=== PATIENT | female | born 1925 | race Caucasian/White ===

== ENCOUNTER 2016-05-24 13:23 | Emergency (ER) | payer MEDICARE ==
--- NOTE | 2016-05-24 14:16 | RAD ---
Indication: Increased weakness. Cardiovascular disease. Comparison: None. Technique: Upright AP 1400 hours Report: Median sternotomy wires, RIGHT atrial and RIGHT ventricular level asymmetrically leads, cardiomegaly. Small bilateral pleural effusions including fluid in the RIGHT minor fissure. Prominent interstitial markings with thickened peripheral intralobular septa. Prominent central pulmonary vasculature with mild perihilar opacities. Negative for pneumothorax. Surgical clips at the level of the jugular notch. Healed fracture at the proximal RIGHT humerus. IMPRESSION: Cardiomegaly with mild alveolar and interstitial pulmonary edema with associated small effusions.
[2016-05-24 14:17] LABS: Hematocrit 37 % (35-47); Hemoglobin 12.2 g/dl (12.0-16.0); Mean Corpuscular HGB Conc 33 g/dl (31-36); Mean Corpuscular Hemoglobin 31 pg (27-31); Mean Corpuscular Volume 95 fL (80-97); Mean Platelet Volume 10 um3 (7.4-10.4); Red Cell Distribution Width 14 % (10.5-15); White Blood Count 5.8 10^3/ul (3.5-10.8)
[2016-05-24 14:34] LABS: Albumin 3.1 g/dL (3.2-5.2); BUN/Creatinine Ratio 15.2 (8-20); C Reactive Protein 20.79 mg/L (< 5.00); Calcium 8.9 mg/dL (8.6-10.3); EGFR African American 63.6 (>60); EGFR Non-African American 49.5 (>60); Globulin 3.7 g/dL (2-4); Magnesium 1.9 mg/dL (1.9-2.7); Potassium 4.5 mmol/L (3.5-5.0); Total Bilirubin 1.6 mg/dL (0.2-1.0); Total Protein 6.8 g/dL (6.4-8.9); Troponin I 0.01 ng/mL (<0.04)
[2016-05-24 14:52] LABS: TSH (Thyroid Stimulating Horm) 3.33 mcIU/mL (0.34-5.60)
[2016-05-24 18:08] LABS: Urine Bacteria Absent (Absent); Urine Bilirubin Negative (Negative); Urine Glucose Negative (Negative); Urine Nitrite Negative (Negative)
[2016-05-24] MEDS ORDERED: Ciprofloxacin TAB* 750 MG PO ONE ×2 (18:27→18:29)
[2016-05-24 18:30] VITALS: BP 120/55
--- NOTE | 2016-05-24 21:56 | ED ---
Delia Leone Erika, scribed for Angel Ochoa MD on 05/24/16 at 1352 . Complex/Multi-Sys Presentation - HPI Summary HPI Summary: Patient is an 89-year-old female presenting to the ED with a CC of lethargy. Patient's daughter received report from [place], where patient lives in assisted living. They reported that patient was at baseline yesterday. Today, patient was confused and weak when they tried to wake her up for breakfast, and did not get up. When she also did not get up around 1 pm, she was brought to the ED. Daughter reports that patient was seen at [place] on 05/20/2016 for a healing bedsore. Daughter also reports that patient has fallen asleep while trying to talk to her more often recently, but this is not new today. Patient reports lower back pain when sitting up, which is baseline per daughter. - History Of Current Complaint Chief Complaint: EDWeakness Time Seen by Provider: 05/24/16 13:30 Hx Obtained From: Patient, Family/[employer] - Daughter Onset/Duration: Lasting Hours, Still Present Timing: Constant Severity Currently: Moderate Alleviating Factor(s): Nothing Associated Signs And Symptoms: Positive: Confusion, Weakness - Allergies/Home Medications Allergies/Adverse Reactions: Allergies Allergy/AdvReac Type Severity Reaction Status Date / Time Penicillins Allergy Intermediate See Comment Verified 05/24/16 13:41 Latex Allergy Unknown Verified 05/24/16 13:41 Reaction Details Home Medications: Home Medications Calcium Carbonate [Calcium 600] 600 mg PO BID 05/24/16 [History Confirmed ] Cholecalciferol [Vitamin D] 2,000 unit PO DAILY 05/24/16 [History Confirmed 12/30] Cyanocobalamin TAB* [Vitamin B12 TAB*] 500 mcg PO DAILY 05/24/16 [History Confirmed 05/24/16] Lactobacillus [Floranex] 1 gra PO DAILY 05/24/16 [History Confirmed 05/24/16] Lovastatin [Altoprev] 20 mg PO DAILY 05/24/16 [History Confirmed 05/24/16] Quetiapine Fumarate [Seroquel] 500 mg PO BEDTIME 05/24/16 [History Confirmed 12/30] Tramadol HCl [Ultram] 50 mg PO TID 05/24/16 [History Confirmed 05/24/16] traZODone TAB* [Desyrel TAB*] 50 mg PO BEDTIME 05/24/16 [History Confirmed 05/24] PMH/Surg Hx/FS Hx/Imm Hx Endocrine/Hematology History: Reports: Hx Thyroid Disease Cardiovascular History: Reports: Hx Pacemaker/ICD, 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 - Surgical History Surgery Procedure, Year, and Place: pacemaker placed 2007 or later, aortic valve replacement Infectious Disease History: Denies: Traveled Outside the [place] in Last 30 Days - Family History Known Family History: Positive: Other - thyroid disease - Social History Occupation: Retired Lives: Assisted Living Alcohol Use: None Hx Substance Use: No Substance Use Type: Reports: None Hx Tobacco Use: No Smoking Status (MU): Never Smoked Tobacco Review of Systems Positive: Fatigue. Negative: Fever Positive: Myalgia - back pain Skin: Other - healing bedsore to right buttocks Neurological: Other - confusion Positive: Weakness - generalized All Other Systems Reviewed And Are Negative: Yes Physical Exam Triage Information Reviewed: Yes Vital Signs On Initial Exam: Temp Pulse Resp BP Pulse Ox 98 F 63 16 116/49 100 05/24/16 13:30 05/24/16 13:30 05/24/16 13:30 05/24/16 13:30 05/24/16 13:30 Vital Signs Reviewed: Yes Appearance: Positive: Well-Appearing, No Pain Distress, Obese Skin: Positive: Warm, Skin Color Reflects Adequate Perfusion, Dry, Other - There are hyperemic areas on the right buttock with skin intact Head/Face: Positive: Normal Head/Face Inspection Eyes: Positive: Normal ENT: Positive: Other - Dry mucus membranes Neck: Positive: Supple, Nontender Respiratory/Lung Sounds: Positive: Breath Sounds Present, Other - Mild crackles about [address] the lungs bilaterally Cardiovascular: Positive: RRR Abdomen Description: Positive: Nontender, Soft Bowel Sounds: Positive: Present Musculoskeletal: Positive: Other - Slight pitting edema bilaterally Neurological: Positive: Normal Psychiatric: Positive: Affect/Mood Appropriate Diagnostics - Vital Signs Vital Signs Temp Pulse Resp BP Pulse Ox 05/24/16 18:30 76 21 120/55 77 05/24/16 18:28 98.0 F 62 17 120/55 05/24/16 18:00 60 22 117/49 100 05/24/16 17:30 60 18 106/48 91 05/24/16 17:00 79 19 96/71 79 05/24/16 16:30 54 18 105/38 88 05/24/16 16:00 62 22 97/70 99 05/24/16 15:30 63 20 97/70 99 05/24/16 15:00 60 19 115/55 99 05/24/16 14:30 60 20 106/55 98 05/24/16 14:00 63 20 104/49 100 05/24/16 13:38 61 24 99 05/24/16 13:37 115/46 05/24/16 13:30 98 F 63 16 116/49 100 - Laboratory Lab Results: Lab Results 05/24/16 05/24/16 05/24/16 Range/Units 13:46 13:46 13:46 WBC 5.8 (3.5-10.8) 10^3/ul RBC 3.90 L (4.0-5.4) 10^6/ul Hgb 12.2 (12.0-16.0) g/dl Hct 37 (35-47) % MCV 95 (80-97) fL MCH 31 (27-31) pg MCHC 33 (31-36) g/dl RDW 14 (10.5-15) % Plt Count 130 L (150-450) 10^3/ul MPV 10 (7.4-10.4) um3 Neut % (Auto) 66.7 (38-83) % Lymph % (Auto) 18.0 L (25-47) % [place] % (Auto) 10.7 H (1-9) % Eos % (Auto) 3.7 (0-6) % Baso % (Auto) 0.9 (0-2) % Absolute Neuts (auto) 3.8 (1.5-7.7) 10^3/ul Absolute Lymphs (auto) 1.0 (1.0-4.8) 10^3/ul Absolute Monos (auto) 0.6 (0-0.8) 10^3/ul Absolute Eos (auto) 0.2 (0-0.6) 10^3/ul Absolute Basos (auto) 0 (0-0.2) 10^3/ul Absolute Nucleated RBC 0.01 10^3/ul Nucleated RBC % 0.1 INR (Anticoag Therapy) 2.36 H (0.89-1.11) Sodium 139 (133-145) mmol/L Potassium 4.5 (3.5-5.0) mmol/L Chloride 97 L (101-111) mmol/L Carbon Dioxide 42 H* (22-32) mmol/L Anion Gap 0 L (2-11) mmol/L BUN 16 (6-24) mg/dL Creatinine 1.05 H (0.51-0.95) mg/dL Est GFR ( Amer) 63.6 (>60) Est GFR (Non-Af Amer) 49.5 (>60) BUN/Creatinine Ratio 15.2 (8-20) Glucose 78 (70-100) mg/dL Lactic Acid (0.5-2.0) mmol/L Calcium 8.9 (8.6-10.3) mg/dL Magnesium 1.9 (1.9-2.7) mg/dL Total Bilirubin 1.60 H (0.2-1.0) mg/dL AST 17 (13-39) U/L ALT 6 L (7-52) U/L Alkaline Phosphatase 114 H (34-104) U/L Troponin I 0.01 (<0.04) ng/mL C-Reactive Protein 20.79 H (< 5.00) mg/L B-Natriuretic Peptide ( - 100) pg/mL Total Protein 6.8 (6.4-8.9) g/dL Albumin 3.1 L (3.2-5.2) g/dL Globulin 3.7 (2-4) g/dL Albumin/Globulin Ratio 0.8 L (1-3) TSH 3.33 (0.34-5.60) mcIU/mL Urine Color Urine Appearance Urine pH (5-9) Ur Specific [place] (1.010-1.030) Urine Protein (Negative) Urine Ketones (Negative) Urine Blood (Negative) Urine Nitrate (Negative) Urine Bilirubin (Negative) Urine Urobilinogen (Negative) Ur Leukocyte Esterase (Negative) Urine WBC (Auto) (Absent) Urine RBC (Auto) (Absent) Urine Bacteria (Absent) Urine Glucose (Negative) Urine Ascorbic Acid (Negative) 05/24/16 05/24/16 05/24/16 Range/Units 13:46 13:46 17:45 WBC (3.5-10.8) 10^3/ul RBC (4.0-5.4) 10^6/ul Hgb (12.0-16.0) g/dl Hct (35-47) % MCV (80-97) fL MCH (27-31) pg MCHC (31-36) g/dl RDW (10.5-15) % Plt Count (150-450) 10^3/ul MPV (7.4-10.4) um3 Neut % (Auto) (38-83) % Lymph % (Auto) (25-47) % [place] % (Auto) (1-9) % Eos % (Auto) (0-6) % Baso % (Auto) (0-2) % Absolute Neuts (auto) (1.5-7.7) 10^3/ul Absolute Lymphs (auto) (1.0-4.8) 10^3/ul Absolute Monos (auto) (0-0.8) 10^3/ul Absolute Eos (auto) (0-0.6) 10^3/ul Absolute Basos (auto) (0-0.2) 10^3/ul Absolute Nucleated RBC 10^3/ul Nucleated RBC % INR (Anticoag Therapy) (0.89-1.11) Sodium (133-145) mmol/L Potassium (3.5-5.0) mmol/L Chloride (101-111) mmol/L Carbon Dioxide (22-32) mmol/L Anion Gap (2-11) mmol/L BUN (6-24) mg/dL Creatinine (0.51-0.95) mg/dL Est GFR ( Amer) (>60) Est GFR (Non-Af Amer) (>60) BUN/Creatinine Ratio (8-20) Glucose (70-100) mg/dL Lactic Acid 0.8 (0.5-2.0) mmol/L Calcium (8.6-10.3) mg/dL Magnesium (1.9-2.7) mg/dL Total Bilirubin (0.2-1.0) mg/dL AST (13-39) U/L ALT (7-52) U/L Alkaline Phosphatase (34-104) U/L Troponin I (<0.04) ng/mL C-Reactive Protein (< 5.00) mg/L B-Natriuretic Peptide 254 H ( - 100) pg/mL Total Protein (6.4-8.9) g/dL Albumin (3.2-5.2) g/dL Globulin (2-4) g/dL Albumin/Globulin Ratio (1-3) TSH (0.34-5.60) mcIU/mL Urine Color Yellow Urine Appearance Cloudy Urine pH 7.0 (5-9) Ur Specific [place] 1.009 L (1.010-1.030) Urine Protein Negative (Negative) Urine Ketones Negative (Negative) Urine Blood Negative (Negative) Urine Nitrate Negative (Negative) Urine Bilirubin Negative (Negative) Urine Urobilinogen Negative (Negative) Ur Leukocyte Esterase 3+ H (Negative) Urine WBC (Auto) 3+(>20/hpf) H (Absent) Urine RBC (Auto) Absent (Absent) Urine Bacteria Absent (Absent) Urine Glucose Negative (Negative) Urine Ascorbic Acid * H (Negative) Result Diagrams: 05/24/16 13:46 05/24/16 13:46 Lab Statement: Any lab studies that have been ordered have been reviewed, and results considered in the medical decision making process. - Radiology CXR Radiology Interpretation Completed By: Radiologist - IMPRESSION: Cardiomegaly with mild alveolar and interstitial pulmonary edema with associated small effusions. - EKG 14:51 Cardiac Rate: NL - at 67 bpm EKG Rhythm: Atrial Fibrillation EKG Interpretation: Non-specific diffuse low voltage Re-Evaluation - Re-Evaluation First Eval Re-Evaluation Time: 16:19 Comment: Discussed imaging and labs with patient and patient's daughter Second Eval Re-Evaluation Time: 18:25 Comment: Discussed UA results and plan of care Complex Multi-Symp Course/Dx Course Of Treatment: Ms. Olivares' W/U revealed a UTI and this may be the source of her fatigue. She remained stable and interactive here in the ED and I will treat her urine and try outpatient managment. - Diagnoses Provider Diagnoses: UTI (urinary tract infection), Weakness Discharge - Discharge Plan Condition: Stable Disposition: HOME Prescriptions: Ciprofloxacin TAB* [Cipro Tab*] 500 mg PO BID #10 tab Patient Education Materials: Urinary Tract Infection in Women (ED), Weakness ( ED) Referrals: Waldemar Washington MD [Primary Care Provider] - Additional Instructions: Please follow up with your PCP. The documentation as recorded by the Delia ybarra Erika accurately reflects the service I personally performed and the decisions made by me, Angel Ochoa MD.
--- NOTE | 2016-05-26 07:05 | ED ---
Progress - Progress Note Progress Note: Patient dx'd with UTI, placed on Cipro, await C&S -[facility]ings Re-Evaluation - Re-Evaluation First Eval Re-Evaluation Time: 16:19 Comment: Discussed imaging and labs with patient and patient's daughter Second Eval Re-Evaluation Time: 18:25 Comment: Discussed UA results and plan of care Course/Dx - Course Course Of Treatment: Ms. Olivares' W/U revealed a UTI and this may be the source of her fatigue. She remained stable and interactive here in the ED and I will treat her urine and try outpatient managment. - Diagnoses Provider Diagnoses: UTI (urinary tract infection), Weakness
== END 2016-05-24 18:28 | disposition home or self-care (01) ==
LOC: ED 13:23
DX: N39.0 Urinary tract infection, site not specified (principal); R53.1 Weakness; Z88.0 Allergy status to penicillin; Z95.810 Presence of automatic (implantable) cardiac defibrillator; Z95.2 Presence of prosthetic heart valve; I48.91 Unspecified atrial fibrillation
CPT/HCPCS: 36415; 71010; 80053; 81003; 81015; 83605; 83735; 83880; 84443; 84484; 85025; 85610; 86140; 87077; 87086; 87186; 93005; 99284; A9270-GY

== ENCOUNTER 2016-11-08 08:41 | Inpatient (IN) | payer MEDICARE ==
[2016-11-08 09:23] LABS: Hematocrit 41 % (35-47); Hemoglobin 13.3 g/dl (12.0-16.0); Mean Corpuscular HGB Conc 33 g/dl (31-36); Mean Corpuscular Hemoglobin 32 pg (27-31); Mean Corpuscular Volume 97 fL (80-97); Mean Platelet Volume 10 um3 (7.4-10.4); Red Cell Distribution Width 15 % (10.5-15); White Blood Count 6.9 10^3/ul (3.5-10.8)
[2016-11-08 09:41] LABS: BUN/Creatinine Ratio 15.9 (8-20); Calcium 8.7 mg/dL (8.6-10.3); EGFR African American 48.7 (>60); EGFR Non-African American 37.9 (>60); Globulin 3.6 g/dL (2-4); Total Bilirubin 2.4 mg/dL (0.2-1.0); Total Protein 6.6 g/dL (6.4-8.9)
--- NOTE | 2016-11-08 10:19 | RAD ---
INDICATION: Shortness of breath. COMPARISON: Similar chest x-ray dated May 24, 2016 TECHNIQUE: Single AP portable view of the chest was obtained. FINDINGS: Image quality is compromised due to the relative inferiority of a portable chest x-ray. Stable postoperative findings include a left upper chest cardiac pacemaker with 2 leads overlying the heart and sternotomy wires. Similar to the prior chest x-ray there is mild cardiomegaly. The heart and mediastinum otherwise exhibit normal contours. There is diffusely increased intraparenchymal density and mild vascular congestion, but overall aeration is better than the May 24, 2016 chest x-ray. Visualized bones are normal for the patient's age. IMPRESSION: Chronic findings as described above most consistent with cardiogenic pulmonary edema but with improved aeration when compared to the most recent May 24, 2016 chest x-ray.
[2016-11-08] MEDS ORDERED: NS 0.9% 1000 ML* 500 ML IV ONE (10:32)
[2016-11-08 10:36] LABS: Urine Bacteria 1+ (Absent); Urine Bilirubin Negative (Negative); Urine Glucose Negative (Negative); Urine Nitrite Negative (Negative)
[2016-11-08 10:53] LABS: Troponin I 0.04 ng/mL (<0.04)
[2016-11-08 11:40] LABS: FIO2 4
[2016-11-08 11:45] LABS: PCO2 Arterial 61 mmHg (35-45)
[2016-11-08] MEDS ORDERED: cefTRIAXone(*) 1 GM in NS 0.9% 50 ML* 50 ML IVPB ONE (11:45)
[2016-11-08] MEDS ORDERED: cefTRIAXone(*) 1 GM ADVAN ONE (11:47)
[2016-11-08] MEDS ORDERED: Acetaminophen TAB* 325 MG PO PRN (12:57)
[2016-11-08] MEDS ORDERED: Ondansetron INJ* 2 MG/ML VIAL IV PRN (12:57)
[2016-11-08] MEDS ORDERED: NS 0.9% 1000 ML* 1,000 ML IV SCH (13:00)
[2016-11-08] MEDS: traMADol TAB* 50 MG PO SCH ×2 (13:50→22:02)
--- NOTE | 2016-11-08 17:08 | HP ---
CC: Dr. Washington* ADMISSION HISTORY AND PHYSICAL: DATE OF ADMISSION: 11/08/16 PRIMARY CARE PROVIDER: Dr. Washington. PRIMARY CASING TIER: Dr. Bee. ADMITTING PROVIDER: MISSY Marquez. SUPERVISING PHYSICIAN: Ifrah Muller MD* (dictated by MISSY Marquez). CHIEF COMPLAINT: Shortness of breath and confusion. HISTORY OF PRESENT ILLNESS: This is an 89-year-old female with multiple medical problems including chronic heart failure, atrial fibrillation, severe pulmonary hypertension, systemic hypertension, depression, anxiety and GERD who is a long- term resident at [facility] and was transferred via ambulance to the emergency department for complaints of shortness of breath this morning. Her daughter sees her at least twice weekly and noted yesterday at her visit that she seemed a bit more confused than what is usual for her. She did not offer any acute complaints at that time and her daughter did not notice any cough or respiratory distress per se. She does note that there has been some increase in lower extremity edema over the last month or so, but does not believe that there has been any medication changes. Upon chart review, it appears that there is a urine culture from last week, , which grew greater than 100,000 colonies of Citrobacter which was essentially pansensitive. Clarification from nurse familiar with Ms. Olivares from [facility] confirms that no treatment has been initiated based on that urine culture result. The patient was also seen by her mortgage loan officer originator on 10/30/16, was noted to look mildly fluid overloaded at that time and repeat labs were drawn, but no medication changes were made based on progress notes from that date of service. When the patient arrived in the emergency department, she was noted to be slightly confused and her daughter states that although she is near her baseline , she is not answering questions as well as what is usual for her. Nursing staff and the patient is able to confirm that her oral intake has been quite poor over the last 24 hours. She ate very little for lunch yesterday. The patient states she did not eat dinner last night or this morning. She was noted to be hypotensive when she reached the ER and clinically dry on exam, received 500 mL of fluid bolus. At the time of exam, patient does not offer any acute complaints. She initially states that she is short of breath, but then asked by her daughter, she states that she is not short of breath. She does not appear to be in any distress. She does not complain of any chest pain, nausea, or vomiting. No palpitations. Her appetite is still poor and states that she is not interested in any food. PAST MEDICAL HISTORY: 1. Hypertension. 2. Depression. 3. Anxiety. 4. GERD. 5. Chronic heart failure with last EF documented at 50% to 55% with severe pulmonary hypertension. 6. 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 7. Atrial fibrillation. 8. Pacemaker in place with recent generator change. 9. 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 PAST SURGICAL HISTORY: 1. Pacemaker placement with recent generator change in June 2016. 2. Bioprosthetic aortic valve replacement. 3. Hysterectomy. HOME MEDICATIONS: 1. Acetaminophen 650 mg p.o. q.4 hours as needed for pain or fever. 2. Vitamin C 500 mg p.o. daily. 3. Tylenol 12.5 mg p.o. daily. 4. Bumex 0.5 mg p.o. daily. 5. Calcium carbonate 600 mg p.o. twice daily. 6. Vitamin D3 2 tablets p.o. daily. 7. Vitamin B12 500 mcg p.o. daily. 8. Lactobacillus 1 tablet p.o. daily. 9. Levothyroxine 137 mcg p.o. daily. 10. Lovastatin 20 mg p.o. daily. 11. Milk of Magnesia 30 mL p.o. at bedtime as needed for constipation. 12. Omeprazole 20 mg p.o. daily. 13. MiraLax 17 g p.o. daily. 14. Potassium chloride 10 mEq p.o. daily. 15. Seroquel 50 mg p.o. at bedtime. 16. Zoloft 50 mg p.o. daily. 17. Spironolactone 25 mg p.o. daily. 18. Ultram 50 mg p.o. t.i.d. 19. Coumadin 3 mg p.o. Monday, , Monday, 1.5 mg on alternate days. 20. Trazodone 50 mg p.o. at bedtime. SOCIAL HISTORY: Patient is a long-term resident at [place]. She is essentially wheelchair bound, but able to assist with transfers at baseline. No significant smoking history and no regular alcohol consumption. REVIEW OF SYSTEMS: Patient is able to provide just a limited review of systems with questionable reproducibility, but all are noted in HPI. Other systems reviewed and are considered negative. PHYSICAL EXAMINATION GENERAL: This is a pleasant elderly female who is accompanied by her daughter. She appears to be mildly confused and unable to provide answers to all questions. VITAL SIGNS: Initial vitals; temperature 98.4 degrees Fahrenheit, pulse 62 beats per minute, respiratory rate 22 per minute, oxygen saturation 98% on 4 L and blood pressure 123/49. Of note, patient became hypotensive in the emergency department, lowest blood pressure is measured at 81/55 and most recently measured at 108/57, still with a normal pulse in the 60s. HEENT: Head is normocephalic, atraumatic. Mucous membranes appear mildly dry. She is missing most of her teeth. RESPIRATORY: Exam is somewhat limited but no adventitious sounds appreciated. CARDIOVASCULAR: Heart has a regular rate and rhythm without murmurs, rubs or gallops. ABDOMEN: Abdomen is soft and nontender to palpation. EXTREMITIES: Patient has what appears to be chronic edema probably about 2+, but nonpitting with some chronic venous stasis changes to the lower legs present. PSYCH: Patient is alert, questionable orientation, seems to be mildly confused. SKIN: She has got some hyperemia and flaking of the skin over her lower legs consistent with venous stasis, but no other concerning rashes or lesions. LABORATORY DATA: 1. CBC is unremarkable with a blood cell count of 6900, hemoglobin of 13.3 g/dL , platelet count of 137,000. INR of 3.37. 2. ABG shows a pH of 7.35, pCO2 of 61, pO2 of 113, bicarb 29.8. 3. Comprehensive metabolic panel shows sodium of 140, potassium 4.0, serum bicarb of 36, BUN 21, creatinine 1.32. Lactic acid 1.6. Total bili at 2.4, but normal transaminases. Ammonia normal at 34. Troponin slightly elevated at 0.04. BNP 354 which is similar to prior measurements and slightly lower than testing last week. Urinalysis shows 3+ leuk esterase, negative for nitrites, 3+ white blood cells, red blood cells, 1+ bacteria. IMAGIN. Chest x-ray shows some mild pulmonary edema which appears improved over last x- ray from May of this year. 2. EKG shows mostly paced beats and an underlying rhythm of atrial fibrillation. ASSESSMENT AND PLAN: This is an 89-year-old female with a history of heart failure, but essentially preserved ejection fraction with known severe pulmonary hypertension, chronic atrial fibrillation with pacemaker in place, hypertension with depression and anxiety, who presented with complaints of shortness of breath but on exam, does not appear to be in any respiratory distress and exam findings seem to be most consistent with a sepsis secondary to urinary tract infection. 1. Sepsis secondary to urinary tract infection - patient meets qSOFA criteria with a score of 3 due to altered mental status, tachypnea and hypotension. Although her mental status does seem to be improving in the emergency department , she does not require ICU admission at this time. She did receive a 500 mL bolus in the emergency department and empirically started on ceftriaxone. We will continue with 1 additional liter of fluid at 75 mL an hour and treatment for urinary tract infection with ceftriaxone. 2. Urinary tract infection - urine culture from last week dated 11/02/16 grew Citrobacter which was a lara sensitive organism. The repeat culture is pending as well as blood cultures. We will empirically treat with ceftriaxone at this time. 3. Mild encephalopathy secondary to urinary tract infection which seems to be improving. 4. Acute kidney injury secondary to sepsis. 5. Elevated troponin - troponin measured at 0.04. This is likely demand related. She has no complaints of chest pain. No other signs of acute coronary syndrome. We will maintain on telemetry and trend troponins. 6. Atrial fibrillation. Chronically anticoagulated on Coumadin with slightly supratherapeutic INR. We will hold her Coumadin at this time and repeat INR tomorrow. 7. Hypertension - we will hold her diuretics, but continue her atenolol due to her history of atrial fibrillation. 8. Gastroesophageal reflux disease. 9. Congestive heart failure. This appears to be chronic diastolic heart failure with severe pulmonary hypertension, perhaps a right-sided component, but no evidence of acute exacerbation. 10. Chronic hypoxic respiratory failure likely secondary to her pulmonary hypertension on 2 L at baseline. 11. Pacemaker in place - appears most of her beats are paced and she did have a recent generator change in June of this year. 12. Code status - patient is DNR/DNI with a signed MOLST. 13. Healthcare proxy is her daughter, Petra. 14. DVT prophylaxis. Patient is chronically anticoagulated with Coumadin and does not require any additional medical prophylaxis. MISSY MARQUEZ [id number]/[facility] #: [id number] [facility]PITALMaria A
[2016-11-08] MEDS: QUEtiapine TAB* 25 MG PO SCH (22:02)
[2016-11-08] MEDS: Atorvastatin* 10 MG TAB PO SCH (22:02)
[2016-11-08] MEDS: traZODone TAB* 50 MG TAB PO SCH (22:05)
[2016-11-09 04:41] LABS: Hematocrit 36 % (35-47); Hemoglobin 11.7 g/dl (12.0-16.0); Mean Corpuscular HGB Conc 32 g/dl (31-36); Mean Corpuscular Hemoglobin 32 pg (27-31); Mean Corpuscular Volume 98 fL (80-97); Mean Platelet Volume 10 um3 (7.4-10.4); Red Cell Distribution Width 15 % (10.5-15); White Blood Count 6.6 10^3/ul (3.5-10.8)
[2016-11-09] MEDS: Levothyroxine TAB* 137 MCG TAB PO SCH (05:09)
[2016-11-09 05:20] LABS: BUN/Creatinine Ratio 18.9 (8-20); Calcium 8.1 mg/dL (8.6-10.3); EGFR African American 59.5 (>60); EGFR Non-African American 46.3 (>60); Potassium 4.2 mmol/L (3.5-5.0)
[2016-11-09] MEDS ORDERED: Furosemide IV* 10 MG/ML VIAL (40 MG) IV ONE (09:17)
[2016-11-09] MEDS: Sertraline* 50 MG TAB PO SCH (09:24)
[2016-11-09] MEDS: Atenolol TAB* 25 MG PO SCH (09:24)
[2016-11-09] MEDS: traMADol TAB* 50 MG PO SCH ×3 (09:25→21:02)
[2016-11-09] MEDS: Potassium Chlor TAB* 10 MEQ TAB.ER PO SCH (09:25)
[2016-11-09] MEDS: Polyethylene Glycol 3350* 17 GM PACKET PO SCH ×2 (09:28→09:35)
[2016-11-09] MEDS: Lactobacillus Acidophilu (GG)* 1 CAP CAP PO SCH (09:28)
[2016-11-09] MEDS: Omeprazole CAP* 20 MG PO SCH (09:28)
[2016-11-09] MEDS: cefTRIAXone VIAL(*) 1,000 MG in NS 0.9% 50 ML* 50 ML IVPB SCH (12:06)
[2016-11-09] MEDS ORDERED: Perflutren Lipid Microsphere* 3 ML VIAL ONE (13:45)
--- NOTE | 2016-11-09 15:43 | ECHO ---
Patient: ALEXANDRA MONTOYA [facility] Rec#: [id number] : 1925 Date: 11/09/2016 Age: 89y Height: 167.64 cm / 66.0 in Weight: 108.86 kg / 239.9 lbs Sex: F BSA: 2.16 Room#: [facility] Admit Date#: 11/08/2016 Type: Inpatient Referring: Derek Judge MD Reading: Mirela Yap MD Mathematical Engineer: Andressa Palacios,RELLCS,RDMS CC: Sasha Bee MD Transthoracic Echocardiogram Indication: CHF BP: 112/58 HR: 50 Rhythm: Paced Findings History: AOV replacement (bioprosthetic), CHF, AFIB, PHTN, HTN, pacemaker Technical Comments: The study is technically limited due to poor acoustic windows. Completed 1455 Left Ventricle: The left ventricular chamber size is normal. Mild concentric left ventricular hypertrophy is observed. Global left ventricular wall motion and contractility are within normal limits. The estimated ejection fraction is 55-60%. Ventricular septal wall motion has a post-operative appearance. The assessment of diastolic function is non-diagnostic. Left Atrium: The left atrium is severely dilated. Right Ventricle: The right ventricle is mild to moderately dilated. The right ventricular global systolic function is moderately reduced. A pacemaker wire is visualized in the right ventricle. Right Atrium: The right atrial cavity size is severely dilated. A pacemaker wire is visualized in the right atrium. Aortic Valve: The aortic valve is trileaflet. There is a trace of aortic regurgitation. The mean gradient of the aortic valve is 7.4 mmHg. The aortic valve area, by peak velocities, is calculated at 1.1 cm2. A bio-prosthetic aortic valve is present. The prosthetic aortic valve leaflets are thickened. Mitral Valve: There is mitral annular calcification. The mitral valve leaflets are mildly thickened. Mitral valve leaflet mobility is mildly restricted. There is mild mitral regurgitation. There is mild mitral stenosis. The mean gradient across the mitral valve is 2 mmHg. The mitral valve area, by pressure half time, is calculated at 3.5 cm2. Tricuspid Valve: The tricuspid valve leaflets are normal. There is severe tricuspid regurgitation. There is evidence of moderate to severe pulmonary hypertension. Pulmonic Valve: There is no evidence of pulmonic valve thickening. There is a trace pulmonic regurgitation. Pericardium: There is no significant pericardial effusion. Aorta: The aortic root appears normal. The aortic arch is not well visualized. Pulmonary Artery: The main pulmonary artery appears normal. Venous: The inferior vena cava is not visualized. Contrast: Definity was used to optimize study. A total of 3 ml was used Conclusions Body habitus limits imaging. The patient was in atrial fibrillation throughout the study. Mild concentric left ventricular hypertrophy is observed. The estimated ejection fraction is 55-60%. The right ventricle is mild to moderately dilated. The right ventricular global systolic function is moderately reduced. The left atrium is severely dilated. The right atrial cavity size is severely dilated. A bio-prosthetic aortic valve is present, mild sclerosis, mild insufficiency. The mean gradient of the aortic valve is 7.4 mmHg. No evidence of prosthetic valve stenosis. The mitral valve leaflets are mildly thickened. There is mild mitral regurgitation. There is mild mitral stenosis. There is severe tricuspid regurgitation. There is evidence of moderate to severe pulmonary hypertension: 53 mmHg. Compared with prior echo of03/23/15, LV function is stable, RV hypokinesis is new, bioprosthetic aortic valve function is stable, the degree of MR was previously moderate, the degree of MS stable, the degree of TR stable and PA pressure previously 79 mmHg. Afib new. Measurements Name Value Normal Range RVIDd (AP) 2D 3.1 cm (0.9 - 2.6) RVDdMajor (2D) 3.3 cm (2.2 - 4.4) RAd ISD 4CH 7.4 cm (3.4 - 4.9) RA (A4C)W 5.6 cm (2.9 - 4.6) IVSd (2D) 1.2 cm (0.6 - 1) LVPWd (2D) 1.3 cm (0.6 - 1) LVIDd (2D) 4.6 cm (3.6 - 5.4) LVIDs (2D) 3.4 cm - LV FS (2D) 26 % (25 - 45) Aortic Annulus 1.8 cm (1.4 - 2.6) Ao root diameter (2D) 2.5 cm (2.1 - 3.5) Ascending Ao 3.2 cm (2.1 - 3.4) LA dimension (AP) 2D 6.6 cm (2.3 - 3.8) LAd ISD 4CH 7.5 cm (2.9 - 5.3) LA ISD 4CH W 5.5 cm (2.5 - 4.5) Name Value Normal Range LA ESV SP 4CH (A/L) 171.05 ml - LA ESV SP 4CH (MOD) 155.73 ml - Name Value Normal Range MV E-wave Vmax 1.1 m/sec - MV deceleration time 229 msec - LV lateral e' Vmax 0.1 m/sec - LV E:e' lateral ratio 11 ratio - Name Value Normal Range AV Vmax 1.8 m/sec - AV VTI 41 cm - AV peak gradient 13 mmHg - AV mean gradient 7.4 mmHg - LVOT diameter 1.9 cm - LVOT Vmax 0.7 m/sec - LVOT VTI 16 cm - LVOT peak gradient 2 mmHg - LVOT mean gradient 1.1 mmHg - DOI (VTI) 0.4 ratio - NOEMI (continuity Vmax) 1.1 cm2 - NOEMI (continuity VTI) 1.1 cm2 - Name Value Normal Range MV Vmax 1.3 m/sec - MV VTI 29 cm - MV peak gradient 7 mmHg - MV mean gradient 2 mmHg - MV PHT 63 msec - MVA (PHT) 3.5 cm2 - MVA (continuity VTI) 1.5 cm2 - Name Value Normal Range TR Vmax 3.1 m/sec - TR peak gradient 38 mmHg - RAP 15 mmHg - RVSP 53 mmHg - Name Value Normal Range PV Vmax 0.7 m/sec - PV peak gradient 2 mmHg -
--- NOTE | 2016-11-09 16:18 | PN ---
Subjective Date of Service: 11/09/16 Interval History: Patient became hypoxic this am, appeared wet on exam. Given 40 IV Lasix and required O2 by facemask. Improved with Lasix, now back to [place]. Patient denies c /o SOB. She is more alert today. Offers no complaints. She has eaten most of her meals. Objective Active Medications: Acetaminophen (Tylenol Tab*) 650 mg PO Q4H PRN PRN Reason: FEVER/PAIN Atenolol (Tenormin Tab*) 12.5 mg PO QAM [facility] Last Admin: 11/09/16 09:24 Dose: 12.5 mg Atorvastatin Calcium (Lipitor*) 5 mg PO 2100 [facility] Last Admin: 11/08/16 22:02 Dose: 5 mg Bumetanide (Bumex Tab*) 0.5 mg PO QAM [facility] Ceftriaxone Sodium 1,000 mg/ (Sodium Chloride) 50 mls @ 200 mls/hr IVPB 1200 [facility] Last Admin: 11/09/16 12:06 Dose: 200 mls/hr Lactobacillus Rhamnosus (Culturelle*) [facility] [place] Last Admin: 11/09/16 09:28 Dose: 1 cap Levothyroxine Sodium (Synthroid Tab*) 137 mcg PO 0600 [facility] Last Admin: 11/09/16 05:09 Dose: 137 mcg Omeprazole (Prilosec Cap*) 20 mg PO 0730 [facility] Last Admin: 11/09/16 09:28 Dose: 20 mg Ondansetron HCl (Zofran Inj*) 4 mg IV Q4H PRN PRN Reason: NAUSEA/VOMITING Polyethylene Glycol/Electrolytes (Miralax*) [facility] [place] Last Admin: 11/09/16 09:35 Dose: Not Given Potassium Chloride (Klor Con Er Tab*) 10 meq [facility] [place] Last Admin: 11/09/16 09:25 Dose: 10 meq Quetiapine Fumarate (Seroquel Tab*) 50 mg PO BEDTIME [facility] Last Admin: 11/08/16 22:02 Dose: 50 mg Sertraline HCl (Zoloft*) 50 mg PO QAM [facility] Last Admin: 11/09/16 09:24 Dose: 50 mg Spironolactone (Aldactone Tab*) 25 mg PO QAM [facility] Tramadol HCl (Ultram*) 50 mg PO TID [facility] Last Admin: 11/09/16 14:57 Dose: 50 mg Trazodone HCl (Desyrel Tab*) 50 mg PO BEDTIME [facility] Last Admin: 11/08/16 22:05 Dose: Not Given Vital Signs: Temp Pulse Resp BP Pulse Ox 97.4 F 59 22 110/48 94 11/09/16 12:17 11/09/16 12:17 11/09/16 14:57 11/09/16 12:17 11/09/16 12:17 Oxygen Devices in Use Now: Nasal Cannula Appearance: Well appearing elderly female who appears mildly confused but in NAD Respiratory: Symmetrical Chest Expansion and Respiratory Effort, - - few crackles at lung bases Cardiovascular: NL Sounds; No Murmurs; No JVD, RRR Abdominal: NL Sounds; No Tenderness; No Distention Extremities: - - non-pitting edema, ~1-2+ Skin: No Rash or Ulcers Neurological: - - alert, mild confusion Result Diagrams: 11/09/16 04:29 11/09/16 04:29 Additional Lab and Data: . Assess/Plan/Problems-Billing Assessment: This is an 89 yo female with CHF, HTN, depression, anxiety, chronic respiratory failure and severe pulm HTN who was admitted with sepsis secondary to UTI. - Patient Problems (1) Sepsis Comment: Secondary to UTI Improving mental status (2) UTI (urinary tract infection) Comment: Urine cx growing Citrobacter Cont Ceftriaxone, waiting on sensitivities, but based on C&S from 11/02 this is a pansensitive organism (3) Acute on chronic heart failure Comment: Likely diastolic based on prior echo Sounds like she became acutely fluid overloaded this am, responded to Lasix and additional O2 Resume usual diuretic dosing (4) PEARL (acute kidney injury) Comment: Secondary to sepsis Cr improved (5) Chronic respiratory failure Comment: Requires 2L chronically, likely secondary to pulm HTN (6) Demand ischemia Comment: Mild elevation of trop, likely secondary to sepsis (7) Supratherapeutic INR Comment: INR 4.4 No bleeding Holding Coumadin Repeat INR in am (8) Atrial fibrillation Comment: Rate controlled Anticoagulated with Coumadin chronically (9) Hypertension Comment: Now normotensive, hypotensive at admission Resume usual home diuretics (10) Depression with anxiety Comment: Appears stable and non-contributory (11) DNR (do not resuscitate) Comment: Signed MOLST (12) DVT prophylaxis Comment: Coumadin Status and Disposition: Inpatient. Requesting PT eval to assess appropriateness to return home to [facility] need for MARGIE. Anticipate dc in 1-2 d.
[2016-11-09] MEDS: QUEtiapine TAB* 25 MG PO SCH (21:02)
[2016-11-09] MEDS: Atorvastatin* 10 MG TAB PO SCH (21:02)
[2016-11-09] MEDS: traZODone TAB* 50 MG TAB PO SCH (21:02)
[2016-11-10] MEDS: Levothyroxine TAB* 137 MCG TAB PO SCH (06:04)
[2016-11-10 07:30] LABS: BUN/Creatinine Ratio 18.1 (8-20); Calcium 8.2 mg/dL (8.6-10.3); EGFR African American 83.2 (>60); EGFR Non-African American 64.7 (>60); Potassium 3.7 mmol/L (3.5-5.0)
[2016-11-10] MEDS ORDERED: Bumetanide TAB* 1 MG PO SCH (09:00)
[2016-11-10] MEDS: Polyethylene Glycol 3350* 17 GM PACKET PO SCH (09:32)
[2016-11-10] MEDS: Atenolol TAB* 25 MG PO SCH (09:33)
[2016-11-10] MEDS: Potassium Chlor TAB* 10 MEQ TAB.ER PO SCH (09:33)
[2016-11-10] MEDS: traMADol TAB* 50 MG PO SCH ×3 (09:33→21:12)
[2016-11-10] MEDS: Lactobacillus Acidophilu (GG)* 1 CAP CAP PO SCH (09:34)
[2016-11-10] MEDS: Omeprazole CAP* 20 MG PO SCH (09:34)
[2016-11-10] MEDS: Sertraline* 50 MG TAB PO SCH (09:34)
[2016-11-10] MEDS: Spironolactone TAB* 25 MG PO SCH (09:34)
[2016-11-10] MEDS: cefTRIAXone VIAL(*) 1,000 MG in NS 0.9% 50 ML* 50 ML IVPB SCH (12:54)
[2016-11-10] MEDS: Bumetanide TAB* 2 MG PO SCH (13:21)
--- NOTE | 2016-11-10 21:00 | PN ---
Subjective Date of Service: 11/10/16 Interval History: Appears wet on exam with diffuse crackles and modest respiratory effort. UCx with citrobacter largely pansensitive. Bicarb to 39. HOGSHEAD OPENER improved. Afebrile. AOx1 Objective Active Medications: Acetaminophen (Tylenol Tab*) 650 mg PO Q4H PRN PRN Reason: FEVER/PAIN Atenolol (Tenormin Tab*) 12.5 mg PO QAM [facility] Last Admin: 11/10/16 09:33 Dose: 12.5 mg Atorvastatin Calcium (Lipitor*) 5 mg PO 2100 [facility] Last Admin: 11/09/16 21:02 Dose: 5 mg Bumetanide (Bumex Tab*) 0.5 mg PO QAM [facility] Last Admin: 11/10/16 09:32 Dose: 0.5 mg Bumetanide (Bumex Tab*) 1 mg PO DAILY [facility] Last Admin: 11/10/16 13:21 Dose: 1 mg Ceftriaxone Sodium 1,000 mg/ (Sodium Chloride) 50 mls @ 200 mls/hr IVPB 1200 [facility] Last Admin: 11/10/16 12:54 Dose: 200 mls/hr Lactobacillus Rhamnosus (Culturelle*) [facility] [place] Last Admin: 11/10/16 09:34 Dose: 1 cap Levothyroxine Sodium (Synthroid Tab*) 137 mcg PO 0600 [facility] Last Admin: 11/10/16 06:04 Dose: 137 mcg Omeprazole (Prilosec Cap*) 20 mg PO 0730 [facility] Last Admin: 11/10/16 09:34 Dose: 20 mg Ondansetron HCl (Zofran Inj*) 4 mg IV Q4H PRN PRN Reason: NAUSEA/VOMITING Polyethylene Glycol/Electrolytes (Miralax*) 17 gm [facility] [place] Last Admin: 11/10/16 09:32 Dose: 17 gm Potassium Chloride (Klor Con Er Tab*) 10 meq [facility] [place] Last Admin: 11/10/16 09:33 Dose: 10 meq Quetiapine Fumarate (Seroquel Tab*) 50 mg PO BEDTIME [facility] Last Admin: 11/09/16 21:02 Dose: 50 mg Sertraline HCl (Zoloft*) 50 mg [facility] [place] Last Admin: 11/10/16 09:34 Dose: 50 mg Spironolactone (Aldactone Tab*) 25 mg PO QAM [facility] Last Admin: 11/10/16 09:34 Dose: 25 mg Tramadol HCl (Ultram*) 50 mg PO TID [facility] Last Admin: 11/10/16 12:54 Dose: 50 mg Trazodone HCl (Desyrel Tab*) 50 mg PO BEDTIME [facility] Last Admin: 11/09/16 21:02 Dose: 50 mg Vital Signs 11/09/16 11/09/16 11/10/16 21:02 23:02 00:26 Temperature 97.5 F Pulse Rate 66 Respiratory 24 22 20 Rate Blood Pressure 146/104 (mmHg) O2 Sat by Pulse 100 Oximetry 11/10/16 11/10/16 11/10/16 00:45 03:22 04:50 Temperature 97.8 F Pulse Rate 72 Respiratory 20 Rate Blood Pressure 128/82 113/46 (mmHg) O2 Sat by Pulse 100 98 Oximetry 11/10/16 11/10/16 11/10/16 07:42 07:50 08:00 Temperature 97.2 F Pulse Rate 112 Respiratory 20 18 Rate Blood Pressure 98/63 (mmHg) O2 Sat by Pulse 76 99 Oximetry 11/10/16 11/10/16 11/10/16 09:25 09:33 11:29 Temperature 98.3 F Pulse Rate 120 Respiratory 18 20 Rate Blood Pressure 108/64 119/61 (mmHg) O2 Sat by Pulse 85 Oximetry 11/10/16 11/10/16 11/10/16 11:33 12:54 14:54 Temperature Pulse Rate Respiratory 18 20 18 Rate Blood Pressure (mmHg) O2 Sat by Pulse Oximetry 11/10/16 15:52 Temperature 98.2 F Pulse Rate 61 Respiratory 20 Rate Blood Pressure 119/44 (mmHg) O2 Sat by Pulse 100 Oximetry Oxygen Devices in Use Now: Nasal Cannula Appearance: slight increased work of breathing Eyes: No Scleral Icterus, PERRLA Ears/Nose/Mouth/Throat: NL Teeth, Lips, Gums, Mucous Membranes Moist Neck: NL Appearance and Movements; NL JVP Respiratory: Symmetrical Chest Expansion and Respiratory Effort, - - diffuse rales. increased work of breathing Cardiovascular: NL Sounds; No Murmurs; No JVD, RRR Abdominal: NL Sounds; No Tenderness; No Distention, No Hepatosplenomegaly Extremities: No Clubbing, Cyanosis, - - trace edema Skin: No Rash or Ulcers Neurological: NL Sensation, - - Oriented to person only Result Diagrams: 11/09/16 04:29 11/10/16 07:03 Additional Lab and Data: . Laboratory Results - last 24 hr 11/10/16 11/10/16 07:03 07:03 INR (Anticoag Therapy) 4.24 H Sodium 140 Potassium 3.7 Chloride 100 L Carbon Dioxide 39 H Anion Gap 1 L BUN 15 Creatinine 0.83 Est GFR ( Amer) 83.2 Est GFR (Non-Af Amer) 64.7 BUN/Creatinine Ratio 18.1 Glucose 81 Calcium 8.2 L Assess/Plan/Problems-Billing Assessment: 89 yo female with diastolic CHF, HTN, depression, anxiety, chronic respiratory failure (2L home O2) and severe pulm HTN who was admitted with sepsis (AMS, tachypnea, hypotension 80/50s) secondary to Citrobacter UTI. - Patient Problems (1) Sepsis Current Visit: Yes Status: Acute Comment: Secondary to Citrobacter UTI Improving mental status and BP continue antibitotics (cftx) (2) UTI (urinary tract infection) Current Visit: Yes Status: Acute Comment: Urine cx growing Citrobacter Cont Ceftriaxone, largely pansensitive organism though need to monitor for evidence of inducible beta-lactamase resistence mediated by AmpC. Consider zosyn if backtracks clinically. (3) Acute on chronic heart failure Current Visit: Yes Status: Acute Code(s): I50.9 - HEART FAILURE, UNSPECIFIED SNOMED Code(s): 123461120 Comment: diastolic based on prior echo Given Lasix 40mg IV 11/09. Will give bumex 1mg po daily (increased from 0.5mg daily). BNP 354 on addmision. Daily weights strict io (4) Atrial fibrillation Current Visit: Yes Status: Acute Code(s): I48.91 - UNSPECIFIED ATRIAL FIBRILLATION SNOMED Code(s): 55050458 Comment: Rate controlled Anticoagulated with Coumadin chronically (5) Hypertension Current Visit: Yes Status: Acute Code(s): I10 - ESSENTIAL (PRIMARY) HYPERTENSION SNOMED Code(s): 86786576 Comment: Now normotensive, hypotensive at admission Resume diuretics (6) Supratherapeutic INR Current Visit: Yes Status: Acute Code(s): R79.1 - ABNORMAL COAGULATION PROFILE SNOMED Code(s): 498421275 Comment: INR 4.2 No bleeding Holding Coumadin Repeat INR in am (7) PEARL (acute kidney injury) Current Visit: Yes Status: Resolved Code(s): N17.9 - ACUTE KIDNEY FAILURE, UNSPECIFIED SNOMED Code(s): 69030311 Comment: Secondary to sepsis Resolved (HOGSHEAD OPENER back to baseline 0.8-0.9), on presentation 1.3 Status and Disposition: Inpatient. Plan to return home to [place] (PT rec on acute need. Anticipate dc in 1-2 d. Attending: Arnaud Kemp
[2016-11-10] MEDS: QUEtiapine TAB* 25 MG PO SCH (21:12)
[2016-11-10] MEDS: traZODone TAB* 50 MG TAB PO SCH (21:13)
[2016-11-10] MEDS: Atorvastatin* 10 MG TAB PO SCH (21:13)
[2016-11-11] MEDS: Levothyroxine TAB* 137 MCG TAB PO SCH (05:30)
[2016-11-11] MEDS: Sertraline* 50 MG TAB PO SCH (08:49)
[2016-11-11] MEDS: Lactobacillus Acidophilu (GG)* 1 CAP CAP PO SCH (08:49)
[2016-11-11] MEDS: Bumetanide TAB* 2 MG PO SCH ×3 (08:49→21:22)
[2016-11-11] MEDS: Spironolactone TAB* 25 MG PO SCH (08:49)
[2016-11-11] MEDS: Potassium Chlor TAB* 10 MEQ TAB.ER PO SCH (08:49)
[2016-11-11] MEDS: Polyethylene Glycol 3350* 17 GM PACKET PO SCH (08:49)
[2016-11-11] MEDS: traMADol TAB* 50 MG PO SCH ×3 (08:49→21:24)
[2016-11-11] MEDS: Omeprazole CAP* 20 MG PO SCH (08:50)
[2016-11-11] MEDS: Atenolol TAB* 25 MG PO SCH (08:50)
[2016-11-11] MEDS: cefTRIAXone VIAL(*) 1,000 MG in NS 0.9% 50 ML* 50 ML IVPB SCH (13:17)
--- NOTE | 2016-11-11 14:56 | ED ---
Stuart Leone Thomas, scribed for Reno Bailey MD on 11/08/16 at 1104 . Altered Mental Status - HPI Summary HPI Summary: The pt is an 89 y/o F BIBA with AMS characterized as unresponsiveness that began today. The patients daughter is present and she provides parts of the patients history. The patient is a resident at [facility] and has steadily declined over the last few months. When the daughter visited the patient yesterday, she was fairly unresponsive and only opened her eyes to her name and aggressive tap. She did not talk yesterday. The daughter reports that earlier today at [facility], the patient no longer opened her eyes to name call and aggressive tap, prompting an ED visit. In the ED, she is alert and responds to questions. She is on 4L of oxygen at home. The patient and her daughter confirm that she is not short of breath, although triage documentation says that she is short of breath. The patient was given oxygen REHAB CONSULTANT by EMS. She is wheelchair bound at baseline. She has a PMHx of CHF and she has leg edema in the ED. Her only complaint is her chronic arthritic pain when sitting up. She denies dysuria , hematuria, and cough. Per her daughter, the patient sometimes has low blood pressure when ill. Her PCP is Dr. Washington and her manager mountain is Dr. Rodriguez. - History Of Current Complaint Chief Complaint: EDShortnessOfBreath Stated Complaint: SOB Time Seen by Provider: 11/08/16 10:29 Hx Obtained From: Patient, Family/Human Resources Associate - daughter provides some of the patient's history Onset/Duration: Still Present Timing: Lasting Hours - onset this AM Aggravating Factor(s): Unknown Alleviating Factor(s): Unknown - Allergies/Home Medications Allergies/Adverse Reactions: Allergies Allergy/AdvReac Type Severity Reaction Status Date / Time Penicillins Allergy Intermediate See Comment Verified 11/08/16 08:59 Latex Allergy Unknown Verified 11/08/16 08:59 Reaction Details PMH/Surg Hx/FS Hx/Imm Hx Previously Healthy: No Endocrine/Hematology History: Reports: Hx Thyroid Disease Cardiovascular History: Reports: Hx Congestive Heart Failure, Hx Hypertension - ON MEDICATION FOR, Hx Pacemaker/ICD, 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 Respiratory History: Reports: Other Respiratory Problems/Disorders - OXYGEN 2L ALL THE TIME GI History: Reports: Other GI Disorders - CONSTIPATION Musculoskeletal History: Reports: Other Musculoskeletal History - LOWER BACKACHES Sensory History: Reports: Hx Contacts or Glasses - GLASSES Denies: Hx Hearing Aid Opthamlomology History: Reports: Hx Contacts or Glasses - GLASSES Psychiatric History: Reports: Hx Depression - HX OF - HAS SEEN A PSYCHOLOGIST - Surgical History Surgery Procedure, Year, and Place: pacemaker placed 2007 or later, aortic valve replacement Hx Anesthesia Reactions: No - Immunization History Date of Tetanus Vaccine: unk Date of Influenza Vaccine: unk Infectious Disease History: No Infectious Disease History: Denies: Traveled Outside the [place] in Last 30 Days - Family History Known Family History: Positive: Other - thyroid disease - Social History Alcohol Use: None Hx Substance Use: No Substance Use Type: Reports: None Hx Tobacco Use: No Smoking Status (MU): Never Smoked Tobacco Review of Systems Negative: Fever, Chills Negative: Erythema - eyes Negative: Sore Throat Negative: Chest Pain Negative: Shortness Of Breath - stated complaint of SOB at triage, but no SOB during examination, Cough Negative: Abdominal Pain, Vomiting, Nausea Negative: dysuria, hematuria Negative: Myalgia, Edema - legs Negative: Rash Neurological: Other - AMS characterized as unresponsive prior to examination, but at examination the patient is alert and responds to questions; NEGATIVE: dizziness All Other Systems Reviewed And Are Negative: Yes Physical Exam - Summary Physical Exam Summary: Constitutional: Well-developed, Well-nourished, Alert. (-) Distressed Skin: Warm, Dry HENT: Normocephalic; Atraumatic. Dry mucous membranes. Eyes: Conjunctiva normal Neck: Musculoskeletal ROM normal neck. (-) JVD, (-) Stridor, (-) Tracheal deviation Cardio: Rhythm regular, rate normal, Heart sounds normal; Intact distal pulses; The pedal pulses are 2+ and symmetric. Radial pulses are 2+ and symmetric. (-) Murmur Pulmonary/Chest wall: Effort normal. (-) Respiratory distress, (-) Wheezes. There are mild rales in the bases. There are no signs of respiratory distress. Abd: Soft, (-) Tenderness, (-) Distension, (-) Guarding, (-) Rebound Musculoskeletal: Edema Lymph: (-) Cervical adenopathy Neuro: Alert. She is disoriented to day. Psych: Mood and affect Normal Triage Information Reviewed: Yes Vital Signs On Initial Exam: Initial Vitals BP 123/49 11/08/16 08:47 Vital Signs Reviewed: Yes - Suad Coma Scale Coma Scale Total: 13 Diagnostics - Vital Signs Vital Signs Temp Pulse Resp BP Pulse Ox 11/08/16 10:30 81/55 11/08/16 10:00 85 20 92/70 96 11/08/16 09:57 54 22 92/68 87 11/08/16 09:03 64 16 104/53 99 11/08/16 09:00 65 96 11/08/16 08:50 157 84 11/08/16 08:48 98.4 F 62 22 123/49 98 11/08/16 08:47 123/49 - Laboratory Lab Results: Lab Results 11/08/16 11/08/16 11/08/16 Range/Units 09:09 09:09 09:09 WBC 6.9 (3.5-10.8) 10^3/ul RBC 4.20 (4.0-5.4) 10^6/ul Hgb 13.3 (12.0-16.0) g/dl Hct 41 (35-47) % MCV 97 (80-97) fL MCH 32 H (27-31) pg MCHC 33 (31-36) g/dl RDW 15 (10.5-15) % Plt Count 137 L (150-450) 10^3/ul MPV 10 (7.4-10.4) um3 Neut % (Auto) 69.4 (38-83) % Lymph % (Auto) 15.0 L (25-47) % Robeson % (Auto) 11.7 H (1-9) % Eos % (Auto) 3.3 (0-6) % Baso % (Auto) 0.6 (0-2) % Absolute Neuts (auto) 4.8 (1.5-7.7) 10^3/ul Absolute Lymphs (auto) 1.0 (1.0-4.8) 10^3/ul Absolute Monos (auto) 0.8 (0-0.8) 10^3/ul Absolute Eos (auto) 0.2 (0-0.6) 10^3/ul Absolute Basos (auto) 0 (0-0.2) 10^3/ul Absolute Nucleated RBC 0 10^3/ul Nucleated RBC % 0 Sodium 140 (133-145) mmol/L Potassium 4.0 (3.5-5.0) mmol/L Chloride 99 L (101-111) mmol/L Carbon Dioxide 36 H (22-32) mmol/L Anion Gap 5 (2-11) mmol/L BUN 21 (6-24) mg/dL Creatinine 1.32 H (0.51-0.95) mg/dL Est GFR ( Amer) 48.7 (>60) Est GFR (Non-Af Amer) 37.9 (>60) BUN/Creatinine Ratio 15.9 (8-20) Glucose 76 (70-100) mg/dL Lactic Acid (0.5-2.0) mmol/L Calcium 8.7 (8.6-10.3) mg/dL Total Bilirubin 2.40 H (0.2-1.0) mg/dL AST 28 (13-39) U/L ALT 11 (7-52) U/L Alkaline Phosphatase 112 H (34-104) U/L Troponin I Pending B-Natriuretic Peptide 354 H ( - 100) pg/mL Total Protein 6.6 (6.4-8.9) g/dL Albumin 3.0 L (3.2-5.2) g/dL Globulin 3.6 (2-4) g/dL Albumin/Globulin Ratio 0.8 L (1-3) // Range/Units 09:09 WBC (3.5-10.8) 10^3/ul RBC (4.0-5.4) 10^6/ul Hgb (12.0-16.0) g/dl Hct (35-47) % MCV (80-97) fL MCH (27-31) pg MCHC (31-36) g/dl RDW (10.5-15) % Plt Count (150-450) 10^3/ul MPV (7.4-10.4) um3 Neut % (Auto) (38-83) % Lymph % (Auto) (25-47) % Robeson % (Auto) (1-9) % Eos % (Auto) (0-6) % Baso % (Auto) (0-2) % Absolute Neuts (auto) (1.5-7.7) 10^3/ul Absolute Lymphs (auto) (1.0-4.8) 10^3/ul Absolute Monos (auto) (0-0.8) 10^3/ul Absolute Eos (auto) (0-0.6) 10^3/ul Absolute Basos (auto) (0-0.2) 10^3/ul Absolute Nucleated RBC 10^3/ul Nucleated RBC % Sodium (133-145) mmol/L Potassium (3.5-5.0) mmol/L Chloride (101-111) mmol/L Carbon Dioxide (22-32) mmol/L Anion Gap (2-11) mmol/L BUN (6-24) mg/dL Creatinine (0.51-0.95) mg/dL Est GFR ( Amer) (>60) Est GFR (Non-Af Amer) (>60) BUN/Creatinine Ratio (8-20) Glucose (70-100) mg/dL Lactic Acid 1.6 (0.5-2.0) mmol/L Calcium (8.6-10.3) mg/dL Total Bilirubin (0.2-1.0) mg/dL AST (13-39) U/L ALT (7-52) U/L Alkaline Phosphatase (34-104) U/L Troponin I B-Natriuretic Peptide ( - 100) pg/mL Total Protein (6.4-8.9) g/dL Albumin (3.2-5.2) g/dL Globulin (2-4) g/dL Albumin/Globulin Ratio (1-3) Result Diagrams: 11/09/16 04:29 11/10/16 07:03 Lab Statement: Any lab studies that have been ordered have been reviewed, and results considered in the medical decision making process. - Radiology CXR Xray Interpretation: Positive (See Comments) - Chronic findings as described above most consistent with cardiogenic pulmonary edema but with improved aeration when compared to the most recent May 24, 2016 chest x-ray. ED physician has reviewed this radiology report and agrees. Radiology Interpretation Completed By: Radiologist - EKG 09:11 Cardiac Rate: NL - 63 BPM EKG Interpretation: Paced rhythm Altered Mental Statu Course/Dx - Course Assessment/Plan: The pt is an 89 y/o F BIBA with AMS characterized as unresponsiveness that began today. The patients daughter is present and she provides parts of the patients history. The patient is a resident at [facility] and has steadily declined over the last few months. When the daughter visited the patient yesterday, she was fairly unresponsive and only opened her eyes to her name and aggressive tap. She did not talk yesterday. The daughter reports that earlier today at [facility], the patient no longer opened her eyes to name call and aggressive tap, prompting an ED visit. In the ED, she is alert and responds to questions. She is on 4L of oxygen at home. The patient and her daughter confirm that she is not short of breath, although triage documentation says that she is short of breath. The patient was given oxygen REHAB CONSULTANT by EMS. She is wheelchair bound at baseline. She has a PMHx of CHF and she has leg edema in the ED. Her only complaint is her chronic arthritic pain when sitting up. She denies dysuria, hematuria, and cough. Per her daughter, the patient sometimes has low blood pressure when ill. Her PCP is Dr. Washington and her manager mountain is Dr. Rodriguez. In the ED course the patient was given IV fluids. Bloodwork shows troponin 0.04, BNP 354, creatinine 1.32, CO2 36. UA shows 1+ protein, 3+ leukocyte esterase, 3+ WBC, 3+ RBC, 1+ bacteria, present hyaline casts. ABG was obtained, results pending at time of admission. EKG at 09:11 shows paced rhythm at 63 BPM. CXR shows Chronic findings as described above most consistent with cardiogenic pulmonary edema but with improved aeration when compared to the most recent May 24, 2016 chest x-ray. ED physician has reviewed this radiology report and agrees. Patient is diagnosed with pulmonary edema, dehydration, and UTI. The patient [place] [facility] [place] at 11: 50. Patient and daughter are agreeable to this plan. - Diagnoses Discharge Diagnoses: Pulmonary edema, Dehydration, UTI (urinary tract infection) - Provider Notifications Discussed Care Of Patient With: Albino Blood Time Discussed With Above Provider: 11:50 Instructed by Provider To: Other - Dr. Blood, hospitalist, admits the patient. Discharge - Discharge Plan Condition: Stable Disposition: ADMITTED TO [facility] documentation as recorded by the Stuart ybarra Thomas accurately reflects the service I personally performed and the decisions made by , Reno Bailey MD.
--- NOTE | 2016-11-11 18:00 | PN ---
Subjective Date of Service: 11/11/16 Interval History: Pt seemingly more comfortable appearing but still tachypneic to 24 and though slightly improved, rales at bases. Increased diuresis. Objective Active Medications: Acetaminophen (Tylenol Tab*) 650 mg PO Q4H PRN PRN Reason: FEVER/PAIN Atenolol (Tenormin Tab*) 12.5 mg PO QAM [facility] Last Admin: 11/11/16 08:50 Dose: 12.5 mg Atorvastatin Calcium (Lipitor*) 5 mg PO 2100 [facility] Last Admin: 11/10/16 21:13 Dose: 5 mg Bumetanide (Bumex Tab*) 2 mg PO BID [facility] Last Admin: 11/11/16 13:18 Dose: 2 mg Ceftriaxone Sodium 1,000 mg/ (Sodium Chloride) 50 mls @ 200 mls/hr IVPB 1200 [facility] Last Admin: 11/11/16 13:17 Dose: 200 mls/hr [facility]actobacillus R[facility]nosus (Culturelle*) [facility] [place] Admin: 11/11/16 08:49 Dose: 1 cap Levothyroxine Sodium (Synthroid Tab*) 137 mcg PO 0600 [facility] Last Admin: 11/11/16 05:30 Dose: 137 mcg Omeprazole (Prilosec Cap*) 20 mg PO 0730 [facility] Last Admin: 11/11/16 08:50 Dose: 20 mg Ondansetron HCl (Zofran Inj*) 4 mg IV Q4H PRN PRN Reason: NAUSEA/VOMITING Polyethylene Glycol/Electrolytes (Miralax*) [facility] [place] Admin: 11/11/16 08:49 Dose: 17 gm Potassium Chloride (Klor Con Er Tab*) 10 [facility]q [facility] [place] Admin: 11/11/16 08:49 Dose: 10 meq Quetiapine Fumarate (Seroquel Tab*) 50 mg PO BEDTIME [facility] Last Admin: 11/10/16 21:12 Dose: 50 mg Sertraline HCl (Zoloft*) [facility] [place] Admin: 11/11/16 08:49 Dose: 50 mg Spironolactone (Aldactone Tab*) 25 mg PO QAM [facility] Last Admin: 11/11/16 08:49 Dose: 25 mg Tramadol HCl (Ultram*) 50 mg PO TID [facility] Last Admin: 11/11/16 13:18 Dose: 50 mg Trazodone HCl (Desyrel Tab*) 50 mg PO BEDTIME [facility] Last Admin: 11/10/16 21:13 Dose: 50 mg Vital Signs 11/10/16 11/10/16 11/10/16 20:00 20:18 21:12 Temperature 98.1 F Pulse Rate 60 Respiratory 20 20 24 Rate Blood Pressure 103/47 (mmHg) O2 Sat by Pulse 96 Oximetry 11/10/16 11/11/16 11/11/16 23:12 00:00 00:17 Temperature 97.0 F 97.0 F Pulse Rate 64 64 Respiratory 22 20 20 Rate Blood Pressure 104/58 104/58 (mmHg) O2 Sat by Pulse 93 93 Oximetry 11/11/16 11/11/16 11/11/16 04:00 04:46 05:53 Temperature 97.4 F 96.9 F 96.9 F Pulse Rate 66 66 66 Respiratory 20 20 20 Rate Blood Pressure 130/62 130/62 130/62 (mmHg) O2 Sat by Pulse 99 99 99 Oximetry 11/11/16 11/11/16 11/11/16 07:23 08:00 08:49 Temperature 97.2 F Pulse Rate 65 Respiratory 20 20 20 Rate Blood Pressure 111/64 (mmHg) O2 Sat by Pulse 99 Oximetry 11/11/16 11/11/16 11/11/16 10:29 11:38 11:46 Temperature 97.8 F 97.8 F Pulse Rate 62 60 Respiratory 20 20 20 Rate Blood Pressure 120/62 120/62 (mmHg) O2 Sat by Pulse 96 99 Oximetry 11/11/16 11/11/16 11/11/16 13:18 15:18 17:27 Temperature 97.3 F Pulse Rate 62 Respiratory 20 20 18 Rate Blood Pressure 124/53 (mmHg) O2 Sat by Pulse 100 Oximetry Oxygen Devices in Use Now: Nasal Cannula Appearance: chronically ill appearing. Tachypneic Ears/Nose/Mouth/Throat: Mucous Membranes Moist, - - poor dentition Neck: NL Appearance and Movements; NL JVP, Trachea Midline Respiratory: - - rales at L>R base, somewhat improved. No rhonchi Cardiovascular: NL Sounds; No Murmurs; No JVD, RRR Abdominal: NL Sounds; No Tenderness; No Distention Extremities: - - trace-1+ edema Neurological: - - orientated to name only Result Diagrams: 11/09/16 04:29 11/10/16 07:03 Additional Lab and Data: Assess/Plan/Problems-Billing Assessment: 89 yo female with diastolic CHF, HTN, depression, anxiety, chronic respiratory failure (2L home O2) and severe pulm HTN who was admitted with sepsis (AMS, tachypnea, hypotension 80/50s) secondary to Citrobacter UTI. Course also complicated by CHF exacerbation. - Patient Problems (1) Sepsis Current Visit: Yes Status: Acute Comment: Secondary to Citrobacter UTI Improved mental status and BP continue antibitotics (cftx) (2) UTI (urinary tract infection) Current Visit: Yes Status: Acute Comment: Urine cx growing Citrobacter Cont Ceftriaxone, largely pansensitive organism though need to monitor for evidence of inducible beta-lactamase resistence mediated by AmpC. Consider zosyn if backtracks clinically. (3) Acute on chronic heart failure Current Visit: Yes Status: Acute Code(s): I50.9 - HEART FAILURE, UNSPECIFIED SNOMED Code(s): 004794650 Comment: diastolic based on prior echo Given Lasix 40mg IV 11/09. Will increase further to bumex 2mg po BID. ( increased from 0.5mg daily). BNP 354 on addmision. Daily weights strict io (4) Atrial fibrillation Current Visit: Yes Status: Acute Code(s): I48.91 - UNSPECIFIED ATRIAL FIBRILLATION SNOMED Code(s): 12340301 Comment: Rate controlled Anticoagulated with Coumadin chronically (held as INR still elevated) (5) Hypertension Current Visit: Yes Status: Acute Code(s): I10 - ESSENTIAL (PRIMARY) HYPERTENSION SNOMED Code(s): 71678036 Comment: Now normotensive, hypotensive at admission diuretics as above (6) Supratherapeutic INR Current Visit: Yes Status: Acute Code(s): R79.1 - ABNORMAL COAGULATION PROFILE SNOMED Code(s): 403591257 Comment: INR 4.2 11/10 No bleeding Holding Coumadin Repeat INR in am (7) PEARL (acute kidney injury) Current Visit: Yes Status: Resolved Code(s): N17.9 - ACUTE KIDNEY FAILURE, UNSPECIFIED SNOMED Code(s): 72794279 Comment: Secondary to sepsis Resolved (THERAPY COORDINATOR back to baseline 0.8-0.9), on presentation 1.3 Status and Disposition: Inpatient. Plan to return home to [place] (PT rec no acute need. Anticipate dc in 1-2 d after CHF improves.
[2016-11-11] MEDS: Atorvastatin* 10 MG TAB PO SCH (21:23)
[2016-11-11] MEDS: traZODone TAB* 50 MG TAB PO SCH (21:26)
[2016-11-11] MEDS: QUEtiapine TAB* 25 MG PO SCH (21:26)
[2016-11-12] MEDS: Levothyroxine TAB* 137 MCG TAB PO SCH (05:37)
[2016-11-12] MEDS: Polyethylene Glycol 3350* 17 GM PACKET PO SCH (08:42)
[2016-11-12] MEDS: Atenolol TAB* 25 MG PO SCH (08:43)
[2016-11-12] MEDS: Spironolactone TAB* 25 MG PO SCH (08:44)
[2016-11-12] MEDS: Bumetanide TAB* 2 MG PO SCH (08:45)
[2016-11-12] MEDS: Sertraline* 50 MG TAB PO SCH (08:46)
[2016-11-12] MEDS: Potassium Chlor TAB* 10 MEQ TAB.ER PO SCH (08:46)
[2016-11-12] MEDS: Omeprazole CAP* 20 MG PO SCH (08:46)
[2016-11-12] MEDS: Lactobacillus Acidophilu (GG)* 1 CAP CAP PO SCH (08:47)
[2016-11-12] MEDS: traMADol TAB* 50 MG PO SCH ×3 (08:47→21:43)
[2016-11-12 10:33] LABS: BUN/Creatinine Ratio 14.5 (8-20); Calcium 8.3 mg/dL (8.6-10.3); EGFR African American 83.2 (>60); EGFR Non-African American 64.7 (>60); Potassium 3.5 mmol/L (3.5-5.0)
[2016-11-12] MEDS: cefTRIAXone VIAL(*) 1,000 MG in NS 0.9% 50 ML* 50 ML IVPB SCH (11:59)
--- NOTE | 2016-11-12 14:42 | PN ---
Subjective Date of Service: 11/12/16 Interval History: Weight on bed scale actually increased despite increased diuresis (bumex 2mg bid ). O2 to 3L. Physical exam improved, less rales. More oriented. Is incontinent. INR to 2.88. Objective Active Medications: Acetaminophen (Tylenol Tab*) 650 mg PO Q4H PRN PRN Reason: FEVER/PAIN Atenolol (Tenormin Tab*) 12.5 mg PO QAM [facility] Last Admin: 11/12/16 08:43 Dose: 12.5 mg Atorvastatin Calcium (Lipitor*) 5 mg PO 2100 [facility] Last Admin: 11/11/16 21:23 Dose: 5 mg Bumetanide (Bumex Tab*) 2 mg PO BID [facility] Last Admin: 11/12/16 08:45 Dose: 2 mg Ceftriaxone Sodium 1,000 mg/ (Sodium Chloride) 50 mls @ 200 mls/hr IVPB 1200 [facility] Last Admin: 11/12/16 11:59 Dose: 200 mls/hr Lact[facility] Rhamnosus (Culturelle*) [facility] [place] [facility] Admin: 11/12/16 08:47 Dose: 1 cap Levothyroxine Sodium (Synthroid Tab*) 137 mcg PO 0600 [facility] Last Admin: 11/12/16 05:37 Dose: 137 mcg Omeprazole (Prilosec Cap*) 20 mg PO 0730 [facility] Last Admin: 11/12/16 08:46 Dose: 20 mg Ondansetron HCl (Zofran Inj*) 4 mg IV Q4H PRN PRN Reason: NAUSEA/VOMITING Polyethylene Glycol/Electrolytes (Miralax*) [facility] [place] Last Admin: 11/12/16 08:42 Dose: 17 gm Potassium Chloride (Klor Con Er Tab*) 10 [facility]q [facility] [place] Last Admin: 11/12/16 08:46 Dose: 10 meq Quetiapine Fumarate (Seroquel Tab*) 50 mg PO BEDTIME [facility] Last Admin: 11/11/16 21:26 Dose: Not Given Sertraline HCl (Zoloft*) [facility] [place] Last Admin: 11/12/16 08:46 Dose: 50 mg Spironolactone (Aldactone Tab*) 25 mg PO QAM [facility] Last Admin: 11/12/16 08:44 Dose: 25 mg Tramadol HCl (Ultram*) 50 mg PO TID [facility] Last Admin: 11/12/16 13:18 Dose: Not Given Trazodone HCl (Desyrel Tab*) 50 mg PO BEDTIME [facility] Last Admin: 11/11/16 21:26 Dose: 50 mg Vital Signs 11/11/16 11/11/16 11/11/16 15:18 17:27 20:00 Temperature 97.3 F Pulse Rate 62 Respiratory 20 18 16 Rate Blood Pressure 124/53 (mmHg) O2 Sat by Pulse 100 Oximetry 11/11/16 11/11/16 11/11/16 20:38 21:24 23:24 Temperature 97.5 F Pulse Rate 58 Respiratory 22 16 16 Rate Blood Pressure 117/50 (mmHg) O2 Sat by Pulse 100 Oximetry 11/12/16 11/12/16 11/12/16 00:12 04:32 07:20 Temperature 97.1 F 96.9 F Pulse Rate 70 67 Respiratory 16 16 22 Rate Blood Pressure 137/67 141/59 (mmHg) O2 Sat by Pulse 96 99 Oximetry 11/12/16 11/12/16 11/12/16 07:52 08:00 08:47 Temperature 97.4 F Pulse Rate 103 Respiratory 20 22 Rate Blood Pressure 128/62 (mmHg) O2 Sat by Pulse 86 94 Oximetry 11/12/16 11/12/16 10:47 11:41 Temperature 96.8 F Pulse Rate 64 Respiratory 20 20 Rate Blood Pressure 135/66 (mmHg) O2 Sat by Pulse 99 Oximetry Oxygen Devices in Use Now: Nasal Cannula Appearance: Chronically Ill appearing Eyes: No Scleral Icterus, PERRLA Ears/Nose/Mouth/Throat: - - dentition terrible with right incisor rotten and front teeth seemingly barely attached. Neck: NL Appearance and Movements; NL JVP, Trachea Midline Respiratory: - - clear to ausculation Abdominal: NL Sounds; No Tenderness; No Distention Extremities: No Edema Skin: - - ecchymosis right hand Neurological: - - oriented to "dorcas", hospital, and "problem with legs and stomach" Result Diagrams: 11/09/16 04:29 11/12/16 10:08 Additional Lab and Data: Assess/Plan/Problems-Billing Assessment: 89 yo female with diastolic CHF, HTN, depression, anxiety, chronic respiratory failure (2L home O2) and severe pulm HTN who was admitted with sepsis (AMS, tachypnea, hypotension 80/50s) secondary to Citrobacter UTI. Course also complicated by CHF exacerbation, now improving. Likely back to baseline and awaiting disposition back to [place]. - Patient Problems (1) Sepsis Current Visit: Yes Status: Acute Comment: Secondary to Citrobacter UTI Improved mental status and BP continue antibitotics (cftx day 4) (2) UTI (urinary tract infection) Current Visit: Yes Status: Acute Comment: Urine cx growing Citrobacter Cont Ceftriaxone (day 4), largely pansensitive organism though need to monitor for evidence of inducible beta-lactamase resistence mediated by AmpC. Consider zosyn if backtracks clinically. (3) Acute on chronic heart failure Current Visit: Yes Status: Acute Code(s): I50.9 - HEART FAILURE, UNSPECIFIED SNOMED Code(s): 055349471 Comment: diastolic based on prior echo s/p Lasix 40mg IV 11/09. Continue bumex 2mg po BID. (home is 0.5mg daily). BNP 354 on addmision. Daily weights, will re-check on standing scale today strict io (4) Atrial fibrillation Current Visit: Yes Status: Acute Code(s): I48.91 - UNSPECIFIED ATRIAL FIBRILLATION SNOMED Code(s): 79131244 Comment: Rate controlled, paced. Anticoagulated with Coumadin chronically, restart at 3mg tomorrow as INR back to therapeutic range (2.8) (5) Hypertension Current Visit: Yes Status: Acute Code(s): I10 - ESSENTIAL (PRIMARY) HYPERTENSION SNOMED Code(s): 89170555 Comment: Now normotensive, hypotensive at admission diuretics as above (6) Supratherapeutic INR Current Visit: Yes Status: Acute Code(s): R79.1 - ABNORMAL COAGULATION PROFILE SNOMED Code(s): 401742016 Comment: INR 2.8 11/10 No bleeding restart Coumadin at 3mg 11/13 Repeat INR in am (7) PEARL (acute kidney injury) Current Visit: Yes Status: Resolved Code(s): N17.9 - ACUTE KIDNEY FAILURE, UNSPECIFIED SNOMED Code(s): 73512631 Comment: Secondary to sepsis Resolved (BUSINESS LINE CONTROLLER back to baseline 0.8-0.9), on presentation 1.3 Status and Disposition: Inpatient. Plan to return home to [place] (PT rec no acute need. Anticipate dc on 11/13 vs 11/14 if unable to accept Attending: Arnaud Kemp
[2016-11-12] MEDS: QUEtiapine TAB* 25 MG PO SCH (21:43)
[2016-11-12] MEDS: traZODone TAB* 50 MG TAB PO SCH (21:44)
[2016-11-12] MEDS: Atorvastatin* 10 MG TAB PO SCH (21:44)
[2016-11-13] MEDS: Levothyroxine TAB* 137 MCG TAB PO SCH (05:29)
[2016-11-13] MEDS: Polyethylene Glycol 3350* 17 GM PACKET PO SCH (09:33)
[2016-11-13] MEDS: Omeprazole CAP* 20 MG PO SCH (09:34)
[2016-11-13] MEDS: Lactobacillus Acidophilu (GG)* 1 CAP CAP PO SCH (09:34)
[2016-11-13] MEDS: Atenolol TAB* 25 MG PO SCH (09:35)
[2016-11-13] MEDS: Sertraline* 50 MG TAB PO SCH (09:35)
[2016-11-13] MEDS: Potassium Chlor TAB* 10 MEQ TAB.ER PO SCH (09:35)
[2016-11-13] MEDS: Bumetanide TAB* 1 MG PO SCH (09:35)
[2016-11-13] MEDS: traMADol TAB* 50 MG PO SCH ×3 (09:36→23:16)
[2016-11-13] MEDS: Spironolactone TAB* 25 MG PO SCH (09:36)
--- NOTE | 2016-11-13 15:26 | PN ---
Subjective Date of Service: 11/13/16 Interval History: Pt required minimal assistance to stand/transfer and even walked a few paces with PT. [facility] called to accept discharge but was told could not accept today on weekend. Objective Active Medications: Acetaminophen (Tylenol Tab*) 650 mg PO Q4H PRN PRN Reason: FEVER/PAIN Atenolol (Tenormin Tab*) 12.5 mg PO QAM [facility] Last Admin: 11/13/16 09:35 Dose: 12.5 mg Atorvastatin Calcium (Lipitor*) 5 mg PO 2100 [facility] Last Admin: 11/12/16 21:44 Dose: 5 mg Bumetanide (Bumex Tab*) 0.5 mg PO DAILY [facility] Last Admin: 11/13/16 09:35 Dose: 0.5 mg Lactobacillus Rhamnosus (Culturelle*) [facility] Last Admin: 11/13/16 09:34 Dose: 1 cap Levothyroxine Sodium (Synthroid Tab*) 137 mcg PO 0600 [facility] Last Admin: 11/13/16 05:29 Dose: 137 mcg Omeprazole (Prilosec Cap*) 20 mg PO 0730 [facility] Last Admin: 11/13/16 09:34 Dose: 20 mg Ondansetron HCl (Zofran Inj*) 4 mg IV Q4H PRN PRN Reason: NAUSEA/VOMITING Polyethylene Glycol/Electrolytes (Miralax*) 17 gm PO QAM [facility] Last Admin: 11/13/16 09:33 Dose: 17 gm Potassium Chloride (Klor Con Er Tab*) 10 meq [facility] Last Admin: 11/13/16 09:35 Dose: 10 meq Quetiapine Fumarate (Seroquel Tab*) 50 mg PO BEDTIME [facility] Last Admin: 11/12/16 21:43 Dose: 50 mg Sertraline HCl (Zoloft*) 50 mg PO QAM [facility] Last Admin: 11/13/16 09:35 Dose: 50 mg Spironolactone (Aldactone Tab*) 25 mg PO QAM [facility] Last Admin: 11/13/16 09:36 Dose: 25 mg Tramadol HCl (Ultram*) 50 mg PO TID [facility] Last Admin: 11/13/16 12:48 Dose: Not Given Trazodone HCl (Desyrel Tab*) 50 mg PO BEDTIME [facility] Last Admin: 11/12/16 21:44 Dose: 50 mg Warfarin Sodium (Coumadin Tab(*)) 3 mg PO DAILY@1700 ARNAUD PRN Reason: Protocol Vital Signs 11/12/16 11/12/16 11/12/16 20:00 21:43 23:31 Temperature 98.7 F 98.6 F Pulse Rate 66 68 Respiratory 16 16 20 Rate Blood Pressure 100/56 103/48 (mmHg) O2 Sat by Pulse 100 97 Oximetry 11/12/16 11/13/16 11/13/16 23:43 04:01 07:55 Temperature 98.4 F Pulse Rate 65 Respiratory 16 22 24 Rate Blood Pressure 98/50 (mmHg) O2 Sat by Pulse 100 Oximetry 11/13/16 11/13/16 08:11 09:36 Temperature Pulse Rate 67 Respiratory 24 24 Rate Blood Pressure 136/66 (mmHg) O2 Sat by Pulse 91 Oximetry Oxygen Devices in Use Now: Nasal Cannula Appearance: Initially head slumped over asleep in chair. Easily awoken and AAO to name, place and some circumstances. Eyes: No Scleral Icterus, PERRLA Ears/Nose/Mouth/Throat: NL Teeth, Lips, Gums Neck: NL Appearance and Movements; NL JVP Respiratory: Symmetrical Chest Expansion and Respiratory Effort, Clear to Auscultation, - Cardiovascular: NL Sounds; No Murmurs; No JVD, RRR Abdominal: NL Sounds; No Tenderness; No Distention, No Hepatosplenomegaly Extremities: No Edema Skin: No Rash or Ulcers Neurological: NL Muscle Strength and Tone Result Diagrams: 11/09/16 04:29 11/12/16 10:08 Additional Lab and Data: Assess/Plan/Problems-Billing Assessment: 89 yo female with diastolic CHF, HTN, depression, anxiety, chronic respiratory failure (2L home O2) and severe pulm HTN who was admitted with sepsis (AMS, tachypnea, hypotension 80/50s) secondary to Citrobacter UTI. Course also complicated by CHF exacerbation, now resolved back to baseline on and on home diuretic levels. Awaiting disposition back to [place] or elsewhere if they don' t ultimately accept back - Patient Problems (1) Sepsis Current Visit: Yes Status: Acute Comment: Secondary to Citrobacter UTI Improved mental status and BP stop IV antibitotics as completed 4 days of cftx and give last day of ceftin (2) UTI (urinary tract infection) Current Visit: Yes Status: Acute Comment: as above. (3) Acute on chronic heart failure Current Visit: Yes Status: Acute Code(s): I50.9 - HEART FAILURE, UNSPECIFIED SNOMED Code(s): 215169100 Comment: diastolic based on prior echo s/p Lasix 40mg IV 11/09. Got bumex 2mg once yesterday and now back to home is 0.5mg daily). BNP 354 on addmision. CONTINUE Daily standing weights, upon re-check on standing scale was down to 102kg. strict io (4) Atrial fibrillation Current Visit: Yes Status: Acute Code(s): I48.91 - UNSPECIFIED ATRIAL FIBRILLATION SNOMED Code(s): 83852861 Comment: Rate controlled, paced. Anticoagulated with Coumadin chronically, restart at 3mg tomorrow as INR back to therapeutic range (2.8) (5) Hypertension Current Visit: Yes Status: Acute Code(s): I10 - ESSENTIAL (PRIMARY) HYPERTENSION SNOMED Code(s): 29049454 Comment: Now normotensive, hypotensive at admission diuretics as above (6) Supratherapeutic INR Current Visit: Yes Status: Acute Code(s): R79.1 - ABNORMAL COAGULATION PROFILE SNOMED Code(s): 596838994 Comment: INR 2.8 11/10 No bleeding restart Coumadin at 3mg 11/13 (7) PEARL (acute kidney injury) Current Visit: Yes Status: Resolved Code(s): N17.9 - ACUTE KIDNEY FAILURE, UNSPECIFIED SNOMED Code(s): 51841588 Comment: Secondary to sepsis Resolved ([employer]OR [employer]NAGEMENT back to baseline 0.8-0.9), on presentation 1.3 Status and Disposition: Inpatient. Plan to return home to [place]. Anticipate dc on 11/14 (could have gone 11/13 if they accepted over weekend) Attending: Arnaud Kemp
[2016-11-13] MEDS: ceFUROXime TAB(*) 250 MG PO SCH ×2 (15:56→23:06)
[2016-11-13] MEDS ORDERED: Warfarin TAB(*) 3 MG PO SCH (17:00)
[2016-11-13] MEDS: Atorvastatin* 10 MG TAB PO SCH (23:05)
[2016-11-13] MEDS: QUEtiapine TAB* 25 MG PO SCH (23:06)
[2016-11-13] MEDS: traZODone TAB* 50 MG TAB PO SCH (23:07)
[2016-11-14] MEDS: Levothyroxine TAB* 137 MCG TAB PO SCH (06:07)
[2016-11-14] MEDS: Omeprazole CAP* 20 MG PO SCH (10:08)
[2016-11-14] MEDS: Atenolol TAB* 25 MG PO SCH (10:11)
[2016-11-14] MEDS: Bumetanide TAB* 1 MG PO SCH (10:12)
[2016-11-14] MEDS: ceFUROXime TAB(*) 250 MG PO SCH (10:13)
[2016-11-14] MEDS: Polyethylene Glycol 3350* 17 GM PACKET PO SCH (10:13)
[2016-11-14] MEDS: Lactobacillus Acidophilu (GG)* 1 CAP CAP PO SCH (10:13)
[2016-11-14] MEDS: Potassium Chlor TAB* 10 MEQ TAB.ER PO SCH (10:13)
[2016-11-14] MEDS: traMADol TAB* 50 MG PO SCH ×2 (10:14→13:38)
[2016-11-14] MEDS: Sertraline* 50 MG TAB PO SCH (10:14)
[2016-11-14] MEDS: Spironolactone TAB* 25 MG PO SCH (10:14)
--- NOTE | 2016-11-14 12:38 | DS ---
DATE OF ADMISSION: 11/08/2016. DATE OF DISCHARGE: 11/14/2016. ADMITTING PROVIDER: MISSY Lim. ATTENDING PHYSICIAN: Arnaud Kemp MD. PRIMARY CARE PHYSICIAN: Dr. Washnigton. PRIMARY UTILIZATION ENGINEER: Dr. Bee. CHIEF COMPLAINT: Altered mental status. PRINCIPAL DIAGNOSES: Sepsis, urinary tract infection, altered mental status. SECONDARY DIAGNOSES: Acute on chronic heart failure, anxiety, depression, hypertension, disability, constrained to wheelchair, atrial fibrillation, pacemaker, bioprosthetic aortic valve, chronic hyp oxic respiratory failure requiring two liters at baseline. HISTORY OF PRESENT ILLNESS AND HOSPITAL COURSE: This 89-year-old female with a past medical history of multiple medical problems as listed above, including chronic diastolic heart failure, atrial fib rillation, severe pulmonary hypertension, severe hypertension, depression, anxiety, GERD, [facility], transferred via an ambulance for complaints of shortness of breath an altered mental status, seemingly more confused per her daughter. She noted that there had been some increas e in lower extremity edema over the last month. There had been a urine culture on 11/02/2016 which grew 100,000 colonies of Citrobacter which was pansensitive. Unclear whether patient had been treat ed at that time. She had also seen a cell liner on October 30 and was looking mildly fluid ove rloaded, but no medication changes were made. When she arrived to the emergency room she was slight ly confused. Nursing staff reported that oral intake had been quite poor over the previous 24 hours and ate very little at lunch. She was clinically dry on exam and received a 500 cc bolus of fluid. Urine culture was repeated and grew greater than 100,000 colonies of Citrobacter and she was start ed on intravenous Ceftriaxone and continued throughout admission with improvement in her altered men nuris status. Course was complicated by fluid overload and some increasing oxygen requirements. She required intravenous dose of Lasix on hospital day number two for increased work of breathing and in creased oxygen requirements, and then increased to Bumex 2 mg p.o. b.i.d. On hospital day number th ree, she had rales on examination on that day. Daily weights and strict I's and O's were recorded. Her discharge weight was 102.8 kg down from admission. She worked with Physical Therapy and was a ble to stand with minimal assistance and even take a few steps which is reportedly her baseline, but she uses a wheelchair exclusively for the last year at her [facility] assisted [facility] facility. The patient's sepsis resolved with the antibiotics and she was considered stable for discharge. She lillie l be returning to her [facility] residence with no changes in medication. She completed a five day co urse of antibiotics with the last dose being oral. MEDICATIONS ON DISCHARGE: 1. Tylenol 650 mg p.o. q.4 hours prn. 2. Atenolol 12.5 mg p.o. q.a.m. 3. Atorvastatin 5 mg daily. 4. Bumex 0.5 mg p.o. daily. 5. Synthroid 137 mcg p.o. 6:00 a.m. daily. 6. MiraLax 17 gm p.o. q.a.m. scheduled. 7. Potassium 10 mEq p.o. q.a.m. 8. Seroquel 50 mg p.o. at bedtime. 9. Zoloft 50 mg p.o. q.a.m. 10. Spironolactone 25 mg p.o. q.a.m. 11. Tramadol 50 mg p.o. t.i.d. scheduled. 12. Trazodone 50 mg p.o. at bedtime. 13. Warfarin 3 mg daily. DISCHARGE DISPOSITION: To [facility]. DISCHARGE DIET: Soft texture, unchanged. FOLLOW-UP: The patient should have her INR rechecked within three days of discharge as the patient presented with elevated INR to a level of 4. Her Warfarin dose was reduced to 3 mg daily. She occa sionally takes 1.5 mg prior to admission on certain days of the week. Of note, Coumadin was held fo r several days during admission and restarted on 11/13/2016. Time spent on this discharge was 35 minutes. [id number]/[facility] #: [id number]
[2016-11-14 14:01] VITALS: BP 131/52
== END 2016-11-14 14:45 | DRG 871 ==
LOC: ED 08:41 → MEDTELE 11:50
PROVIDERS: ADMIT Internal Medicine; ATTEND Internal Medicine
DX: A41.9 Sepsis, unspecified organism (principal); I50.33 Acute on chronic diastolic (congestive) heart failure; G93.40 Encephalopathy, unspecified; J96.11 Chronic respiratory failure with hypoxia; N17.9 Acute kidney failure, unspecified; N39.0 Urinary tract infection, site not specified; I24.8 Other forms of acute ischemic heart disease; I27.20 Pulmonary hypertension, unspecified; F41.9 Anxiety disorder, unspecified; F32.9 Major depressive disorder, single episode, unspecified; I48.91 Unspecified atrial fibrillation; K21.9 Gastro-esophageal reflux disease without esophagitis; B96.89 Other specified bacterial agents as the cause of diseases classified elsewhere; Z99.81 Dependence on supplemental oxygen; Z99.3 Dependence on wheelchair; Z95.0 Presence of cardiac pacemaker; Z95.2 Presence of prosthetic heart valve; Z79.01 Long term (current) use of anticoagulants; Z79.1 Long term (current) use of non-steroidal anti-inflammatories (NSAID); Z79.899 Other long term (current) drug therapy; I87.8 Other specified disorders of veins; R74.8 Abnormal levels of other serum enzymes; Z66 Do not resuscitate; I36.1 Nonrheumatic tricuspid (valve) insufficiency
CPT/HCPCS: 36415; 36600; 71010; 80048; 80053; 81003; 81015; 82140; 82803; 83605; 83880; 84484; 85025; 85610; 85730; 87077; 87086; 87186; 87641; 93005; 93306; 94760; A9270-GY; C8929; J0696; J1940

== ENCOUNTER → 2016-11-23 08:59 | Emergency (ER) | payer MEDICARE ==
[~2016-11-23 08:59] MED LIST: Bumetanide TAB* 1 MG PO ONE; Bumetanide TAB* 2 MG PO ONE; Ciprofloxacin TAB* 500 MG PO ONE
--- NOTE | 2016-11-23 10:23 | RAD ---
HISTORY: Altered mental status COMPARISONS: None TECHNIQUE: Multiple contiguous axial CT scans were obtained of the head without intravenous contrast. FINDINGS: The study is limited by patient motion artifact. HEMORRHAGE/INFARCT: There is no hemorrhage or acute infarct. MASSES/SHIFT: There is no mass or shift. EXTRA-AXIAL SPACES: There are no extra-axial fluid collections. SULCI AND VENTRICLES: There is diffuse and proportional enlargement of the sulci and ventricles. CEREBRUM: There is hypoattenuation of the periventricular and subcortical white matter. BRAINSTEM: There are no focal parenchymal abnormalities. CEREBELLUM: There are no focal parenchymal abnormalities. VESSELS: The vessels are grossly normal. PARANASAL SINUSES: The paranasal sinuses are clear. ORBITS: The orbits are unremarkable. BONES AND SOFT TISSUE: There is post surgical change to the skull. OTHER: None IMPRESSION: LIMITED STUDY. NO ACUTE INTRACRANIAL PATHOLOGY.
[2016-11-23 10:37] LABS: Hematocrit 38 % (35-47); Hemoglobin 12.6 g/dl (12.0-16.0); Mean Corpuscular HGB Conc 33 g/dl (31-36); Mean Corpuscular Hemoglobin 32 pg (27-31); Mean Corpuscular Volume 97 fL (80-97); Mean Platelet Volume 10 um3 (7.4-10.4); Red Blood Count 3.92 10^6/ul (4.0-5.4); Red Cell Distribution Width 15 % (10.5-15); White Blood Count 5.2 10^3/ul (3.5-10.8)
[2016-11-23 10:48] LABS: BUN/Creatinine Ratio 13.7 (8-20); Calcium 8.9 mg/dL (8.6-10.3); EGFR African American 71.2 (>60); EGFR Non-African American 55.4 (>60); Globulin 3.5 g/dL (2-4); Magnesium 1.7 mg/dL (1.9-2.7); Potassium 4.1 mmol/L (3.5-5.0); Total Bilirubin 1.9 mg/dL (0.2-1.0); Total Protein 6.5 g/dL (6.4-8.9)
[2016-11-23 10:50] LABS: Troponin I 0.03 ng/mL (<0.04)
--- NOTE | 2016-11-23 10:51 | RAD ---
INDICATION: Altered mental status. COMPARISON: Comparison is made with a prior study from November 08, 2016. TECHNIQUE: A portable view of the chest was obtained. FINDINGS: The patient is status post sternotomy and cardiac valve replacement surgery. The heart is moderately enlarged and unchanged from the prior exam. There is a dual-chamber transvenous pacemaker present. There is diffuse prominence of the interstitial markings. No focal infiltrate is seen. IMPRESSION: FINDINGS SUGGESTIVE OF CONGESTIVE HEART FAILURE.
[2016-11-23 11:24] LABS: TSH (Thyroid Stimulating Horm) 4.59 mcIU/mL (0.34-5.60)
[2016-11-23 14:07] LABS: Urine Bacteria 1+ (Absent); Urine Bilirubin Negative (Negative); Urine Glucose Negative (Negative); Urine Nitrite Negative (Negative)
--- NOTE | 2016-11-23 14:55 | CONS ---
CC: Dr. Washington; Dr. Bee; Dr. Ochoa * CONSULTATION REPORT: DATE OF CONSULT: 11/23/16 - EMERGENCY DEPT PRIMARY CARE PROVIDER: Dr. Washington. ATTENDING PHYSICIAN WHILE IN THE HOSPITAL: Gracie Ibarra MD (report dictated by Layton Parry NP). REQUESTING PHYSICIAN IN CONSULT: Dr. Ochoa. REASON FOR MEDICAL CONSULTATION: Evaluation of patient for possible admission. HISTORY OF PRESENT ILLNESS: Ms. Olivares is an 89-year-old female patient who recently was here in the hospital from 11/08/16 to 11/14/16 with altered mental status, found to have a UTI. Course was complicated by having worsening shortness of breath and had a CHF exacerbation, which all resolved. She was sent back to the [facility] on the 11/14/16 and the daughter says to her knowledge she had been doing well. Her mentation had not been waxing and waning. There had been no reports of fevers, chills, vomiting, or diarrhea. No chest pain or shortness of breath. There has been no reports of increasing weight gain. The family was called today with having complaints of altered mental status and the [facility] staff being unable to awaken the patient. They were concerned and they sent her into the ER. She was evaluated by Dr. Ochoa and when Dr. Ochoa evaluated the patient, the patient really would only follow commands, but she would not communicate, she would not open her eyes, she would not talk and we are asked to evaluate for admission. Again, she says the patient does recall coming in today. She is actually talking to me now. She is unsure of what happened. She denied having any chest pain or shortness of breath to me. She says she has been taking her meds as prescribed. There has been no reports of vomiting or diarrhea and says her appetite was down last night, but because of the altered mental status, we were asked to evaluate. There has been no reports of slurred speech, facial drooping or weakness to one side. PAST MEDICAL HISTORY: Significant for: 1. CHF. Last EF was 50% to 55%. 2. History of AFib. 3. Pulmonary hypertension. 4. Hypertension. 5. Depression. 6. Anxiety. 7. GERD. PAST SURGICAL HISTORY: 1. She has had a pacemaker. 2. Aortic valve replacement, which is bioprosthetic. 3. Hysterectomy. HOME MEDICATIONS: Include: 1. Atenolol 12.5 mg daily. 2. Lactobacillus 1 tablet daily. 3. Bumex 0.5 mg daily. 4. Synthroid 137 mcg p.o. daily. 5. Mevacor 20 mg daily. 6. Prilosec 20 mg daily. 7. MiraLAX 17 g p.o. daily. 8. Potassium 10 mEq p.o. daily. 9. Zoloft 50 mg daily. 10. Aldactone 25 mg daily. 11. B12 500 mcg p.o. daily. 12. Vitamin C 500 mg p.o. daily. 13. Vitamin D 2000 units p.o. daily. 14. Calcium carbonate 1 tablet p.o. b.i.d. 15. Tramadol 50 mg t.i.d. 16. Seroquel 50 mg at bedtime. 17. Trazodone 50 mg at bedtime. 18. Coumadin 1.5 mg p.o. Monday, Monday, Monday, Monday. 19. Coumadin 3 mg Monday, , and Monday. 20. Milk of mag 30 mL p.o. daily as needed. 21. Tramadol 50 mg daily as needed. 22. Tylenol 650 mg p.o every 4 hours as needed. ALLERGIES TO MEDICATIONS: Include PENICILLIN and LATEX. FAMILY HISTORY: The mother at the age of 92. Her father at the age of 70. SOCIAL HISTORY: The patient does not smoke. She does not drink. She lives at [facility]. Surrogate decision maker is her daughter. REVIEW OF SYSTEMS: There is no documented fever. She denied having any significant weight change. There was no double vision. There is no ear discharge. She denied having any rhinorrhea. No sore throat. No thyroid enlargement. Denied having any chest pain. There was no orthopnea, no nocturnal dyspnea. There was no abdominal pain. No nausea. No vomiting. No dysuria. There was no frequency. No seizure. No loss of consciousness. No pruritus and no skin ulceration. Review of 14 systems completed, all others negative. PHYSICAL EXAM: Vital Signs: Blood pressure 108/55, pulse 65, respirations 18, her O2 saturation was 96%, and her temperature was 97.7. General: At this time , Ms. Olivares is an 89-year-old female patient. She is sitting in the ER stretcher. She does not appear to be in any acute respiratory distress. She is awake and alert now, oriented to place and self. HEENT: Head atraumatic. Eyes , sclerae are anicteric, not pale. Neck: Supple. Throat: Oral mucosa appears to be moist. No oropharyngeal erythema. Heart: Sounds S1, S2. She does have a grade 2 to 3 murmur in the aortic listening area. Lungs: She did have wheeze noted bilaterally. Her abdomen was soft, flat, nontender. Bowel sounds are present. Extremities: Pulses were 2+ throughout. She is moving all 4 extremities now. Neurologically, she is awake, she is alert, she is confused to time. Her speech is clear. Her tongue is midline. [id number] intact bilaterally. Supervisor [employer] were equal. She had no gross focal deficits. No facial droop. The skin was intact. DIAGNOSTIC STUDIES/LAB DATA: WBC of 5.2, RBC of 3.92, hemoglobin of 15.6, hematocrit of 38, platelet count of 108. The sodium was 139; potassium was 4.1 ; chloride of 95; bicarb was 41, she normally runs anywhere between 43 to 39; her BUN was 13; creatinine was 0.95; glucose was 71. Lactate was 1.1, calcium 8.9, mag 1.9. Total bili 1.9, AST 25, ALT 11, alk phos 94. Ammonia was 46. Troponin 0.03. Albumin of 3. TSH of 4.59. She did have a brain CT obtained today, which revealed, limited study, no acute intracranial pathology. There was a chest x-ray obtained today, which impression read as findings consistent with CHF. There was an EKG obtained today as well, which showed a paced rhythm, rate of 64, atrial fibrillation. Old medical records reviewed. ASSESSMENT AND PLAN: Ms. Olivares is an 89-year-old female patient coming into the ER today, complains of altered mental status. We are initially asked for evaluation for admission. Evaluating the patient, she appears to be returning to her baseline. My plan at this point and recommendation at this point are for : 1. Altered mental status. Again, I expect this could be related to polypharmacy. She is on tramadol, trazodone and Seroquel, all at bedtime. I would recommend stopping the tramadol at bedtime for now and just continuing it at 9 in the morning and at 1500 and then seeing how she tolerates this for the time being. I also would recommend checking her urine. 2. History of congestive heart failure. Chest x-ray does seem to be slightly worse. I do see Dr. Kemp's notes that from the last discharge, she was up to 2 mg of Bumex b.i.d. It looks like she is back down now to 0.5. I will increase her back up to 0.5 b.i.d. We will give a request that she is given diuretic down here in the ED prior to discharge and continue to follow her and she should be watched closely at [facility]. If there is obviously any worsening of shortness of breath or weight gain, she should be sent back to the hospital for evaluation. 3. Atrial fibrillation. Continue meds as prescribed. 4. Pulmonary hypertension. Continue meds as prescribed. 5. Hypertension. Continue meds as prescribed. It is stable. 6. Depression and anxiety. Continue with supportive care. 7. Gastroesophageal reflux disease. Continue with PPI therapy. DISPOSITION: She can be safely discharged back to [facility]. I did touch base with my attending Dr. Ibarra, she was in agreement. Dr. Ochoa did state that he will evaluate the patient here in the ED for a UTI. If there are any other changes in her mentation, obviously reconsult us if is felt to be necessary. TIME SPENT: Time spent on the consult 60 minutes, greater than half the time spent [id number] with the patient obtaining history and physical; other half time spent going over the plan of care with the patient and implementing the plan of care. I did discuss this plan of care with my attending, Dr. Ibarra; she is in agreement. LAYTON PARRY, TAMY [id number]/[facility] #: [id number]
[2016-11-23 18:36] VITALS: BP 105/75
--- NOTE | 2016-11-23 21:39 | ED ---
Stuart Leone Thomas, scribed for Angel Ochoa MD on 11/23/16 at 1019 . Altered Mental Status - HPI Summary HPI Summary: The pt is a 89 y/o F with a Hx of dementia BIBA from [place] c/o new-onset unresponsiveness that began today at 08:00. The patient does not respond to voice. The patients daughter is present, who says that the patient has declined cognitively over the last six months. Pt additionally c/o shakes ( onset about six weeks ago). PMHx: dementia. PSHx: pacemaker, aortic valve replacement. She was admitted to [facility] for 6-7 days and discharged about a week ago for a UTI and leg swelling. She is accompanied by her daughter. - History Of Current Complaint Chief Complaint: EDAltMentalStatus Stated Complaint: AMS Time Seen by Provider: 11/23/16 10:07 Hx Obtained From: Patient, Family/Human Resources Executive - daughter is present Hx From Patient Unobtainable Due To: Other - Unresponsiveness Onset/Duration: Still Present Timing: Constant Character: Responsiveness - unresponsiveness Aggravating Factor(s): Nothing Alleviating Factor(s): Nothing Related History: Other: - Hx of dementia - Allergies/Home Medications Allergies/Adverse Reactions: Allergies Allergy/AdvReac Type Severity Reaction Status Date / Time Penicillins Allergy Intermediate See Comment Verified 11/08/16 08:59 Latex Allergy Unknown Verified 11/08/16 08:59 Reaction Details Home Medications: Home Medications Ascorbic Acid TAB* [Vitamin C TAB*] 500 mg PO DAILY 11/23/16 [History Confirmed 11/23/16] Bumetanide TAB* [Bumex 1 MG TAB*] 0.5 mg PO DAILY 11/23/16 [History Confirmed ] Calcium Carbonate-Vitamin D W/ [Caltrate 600+D Plus] 1 tab PO BID 11/23/16 [ History Confirmed 11/23/16] Cholecalciferol TAB* [Vitamin D TAB*] 2,000 units PO DAILY 11/23/16 [History Confirmed 11/23/16] Lactobacillus [Floranex] 1 tab PO DAILY 11/23/16 [History Confirmed 11/23/16] Levothyroxine TAB* [Synthroid TAB*] 137 mcg PO QAM 11/23/16 [History Confirmed 11/23/16] Lovastatin(NF) [Mevacor(NF)] 20 mg PO DAILY 11/23/16 [History Confirmed 11/23/16 ] Potassium Chlor TAB* [Klor Con ER TAB*] 10 meq PO DAILY 11/23/16 [History Confirmed 11/23/16] QUEtiapine TAB* [SEROquel TAB*] 50 mg PO BEDTIME 11/23/16 [History Confirmed 12/30] Warfarin TAB(*) [Coumadin TAB(*)] 1.5 mg PO SUMOWEFR 11/23/16 [History Confirmed 11/23/16] Warfarin TAB(*) [Coumadin TAB(*)] 3 mg PO TUTHSA 11/23/16 [History Confirmed 12/30] traMADol TAB* [Ultram*] 50 mg PO DAILY PRN MDD 200 mg 11/23/16 [History Confirmed 11/23/16] traMADol TAB* [Ultram*] 50 mg PO TID MDD 200 mg 11/23/16 [History Confirmed 12/30] PMH/Surg Hx/FS Hx/Imm Hx Previously Healthy: No Endocrine/Hematology History: Reports: Hx Thyroid Disease Cardiovascular History: Reports: Hx Congestive Heart Failure, Hx Hypertension - ON MEDICATION FOR, Hx Pacemaker/ICD, 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 Respiratory History: Reports: Other Respiratory Problems/Disorders - OXYGEN 2L ALL THE TIME GI History: Reports: Other GI Disorders - CONSTIPATION Musculoskeletal History: Reports: Other Musculoskeletal History - LOWER BACKACHES Sensory History: Reports: Hx Contacts or Glasses - GLASSES Denies: Hx Hearing Aid Opthamlomology History: Reports: Hx Contacts or Glasses - GLASSES Psychiatric History: Reports: Hx Depression - HX OF - HAS SEEN A PSYCHOLOGIST - Surgical History Surgery Procedure, Year, and Place: pacemaker placed 2007 or later, aortic valve replacement Hx Anesthesia Reactions: No - Immunization History Date of Tetanus Vaccine: unk Date of Influenza Vaccine: unk Infectious Disease History: No Infectious Disease History: Denies: Traveled Outside the [place] in Last 30 Days - Family History Known Family History: Positive: Other - thyroid disease - Social History Occupation: Unemployed Lives: At [facility] [employer] Alcohol Use: None Hx Substance Use: No Substance Use Type: Reports: None Hx Tobacco Use: No Smoking Status (MU): Never Smoked Tobacco Review of Systems Negative: Fever Neurological: Other - New-onset unresponsiveness, shakes All Other Systems Reviewed And Are Negative: Yes Physical Exam Triage Information Reviewed: Yes Vital Signs On Initial Exam: Initial Vitals Resp 15 11/23/16 09:10 Vital Signs Reviewed: Yes Appearance: Positive: Well-Appearing, No Pain Distress, Obese Skin: Positive: Warm, Skin Color Reflects Adequate Perfusion, Dry Head/Face: Positive: Normal Head/Face Inspection Eyes: Positive: Normal ENT: Positive: Other - Dry mucous membranes Neck: Positive: Supple, Nontender Respiratory/Lung Sounds: Positive: Clear to Auscultation, Breath Sounds Present Cardiovascular: Positive: RRR Abdomen Description: Positive: Nontender, Soft Bowel Sounds: Positive: Present Musculoskeletal: Positive: Other - There is some peripheral edema. There are chronic venous stasis changes. Neurological: Positive: Other - She does not respond to voice but does respond to noxious stimuli AVPU Assessment: Pain (Reponds To) - Suad Coma Scale Coma Scale Total: 13 Diagnostics - Vital Signs Vital Signs Temp Pulse Resp BP Pulse Ox 11/23/16 09:30 66 19 95/79 96 11/23/16 09:12 97.7 F 67 23 115/57 90 11/23/16 09:10 15 - Laboratory Lab Results: Lab Results 11/23/16 11/23/16 11/23/16 Range/Units 10:21 10:21 10:21 WBC 5.2 (3.5-10.8) 10^3/ul RBC 3.92 L (4.0-5.4) 10^6/ul Hgb 12.6 (12.0-16.0) g/dl Hct 38 (35-47) % MCV 97 (80-97) fL MCH 32 H (27-31) pg MCHC 33 (31-36) g/dl RDW 15 (10.5-15) % Plt Count 108 L (150-450) 10^3/ul MPV 10 (7.4-10.4) um3 Neut % (Auto) 62.7 (38-83) % Lymph % (Auto) 21.2 L (25-47) % [place] % (Auto) 11.3 H (1-9) % Eos % (Auto) 4.0 (0-6) % Baso % (Auto) 0.8 (0-2) % Absolute Neuts (auto) 3.2 (1.5-7.7) 10^3/ul Absolute Lymphs (auto) 1.1 (1.0-4.8) 10^3/ul Absolute Monos (auto) 0.6 (0-0.8) 10^3/ul Absolute Eos (auto) 0.2 (0-0.6) 10^3/ul Absolute Basos (auto) 0 (0-0.2) 10^3/ul Absolute Nucleated RBC 0 10^3/ul Nucleated RBC % 0.1 Sodium 139 (133-145) mmol/L Potassium 4.1 (3.5-5.0) mmol/L Chloride 95 L (101-111) mmol/L Carbon Dioxide 41 H* (22-32) mmol/L Anion Gap 3 (2-11) mmol/L BUN 13 (6-24) mg/dL Creatinine 0.95 (0.51-0.95) mg/dL Est GFR ( Amer) 71.2 (>60) Est GFR (Non-Af Amer) 55.4 (>60) BUN/Creatinine Ratio 13.7 (8-20) Glucose 71 (70-100) mg/dL Lactic Acid (0.5-2.0) mmol/L Calcium 8.9 (8.6-10.3) mg/dL Magnesium 1.7 L (1.9-2.7) mg/dL Total Bilirubin 1.90 H (0.2-1.0) mg/dL AST 25 (13-39) U/L ALT 11 (7-52) U/L Alkaline Phosphatase 94 (34-104) U/L Ammonia 46 (16-53) mol/L Troponin I 0.03 (<0.04) ng/mL Total Protein 6.5 (6.4-8.9) g/dL Albumin 3.0 L (3.2-5.2) g/dL Globulin 3.5 (2-4) g/dL Albumin/Globulin Ratio 0.9 L (1-3) TSH 4.59 (0.34-5.60) mcIU/mL Urine Color Urine Appearance Urine pH (5-9) Ur Specific Franklin (1.010-1.030) Urine Protein (Negative) Urine Ketones (Negative) Urine Blood (Negative) Urine Nitrate (Negative) Urine Bilirubin (Negative) Urine Urobilinogen (Negative) Ur Leukocyte Esterase (Negative) Urine WBC (Auto) (Absent) Urine RBC (Auto) (Absent) Ur Squamous Epith Cells (Absent) Urine Bacteria (Absent) Hyaline Casts (Absent) Urine Glucose (Negative) Urine Ascorbic Acid (Negative) 11/23/16 11/23/16 Range/Units 10:21 13:41 WBC (3.5-10.8) 10^3/ul RBC (4.0-5.4) 10^6/ul Hgb (12.0-16.0) g/dl Hct (35-47) % MCV (80-97) fL MCH (27-31) pg MCHC (31-36) g/dl RDW (10.5-15) % Plt Count (150-450) 10^3/ul MPV (7.4-10.4) um3 Neut % (Auto) (38-83) % Lymph % (Auto) (25-47) % [place] % (Auto) (1-9) % Eos % (Auto) (0-6) % Baso % (Auto) (0-2) % Absolute Neuts (auto) (1.5-7.7) 10^3/ul Absolute Lymphs (auto) (1.0-4.8) 10^3/ul Absolute Monos (auto) (0-0.8) 10^3/ul Absolute Eos (auto) (0-0.6) 10^3/ul Absolute Basos (auto) (0-0.2) 10^3/ul Absolute Nucleated RBC 10^3/ul Nucleated RBC % Sodium (133-145) mmol/L Potassium (3.5-5.0) mmol/L Chloride (101-111) mmol/L Carbon Dioxide (22-32) mmol/L Anion Gap (2-11) mmol/L BUN (6-24) mg/dL Creatinine (0.51-0.95) mg/dL Est GFR ( Amer) (>60) Est GFR (Non-Af Amer) (>60) BUN/Creatinine Ratio (8-20) Glucose (70-100) mg/dL Lactic Acid 1.1 (0.5-2.0) mmol/L Calcium (8.6-10.3) mg/dL Magnesium (1.9-2.7) mg/dL Total Bilirubin (0.2-1.0) mg/dL AST (13-39) U/L ALT (7-52) U/L Alkaline Phosphatase (34-104) U/L Ammonia (16-53) mol/L Troponin I (<0.04) ng/mL Total Protein (6.4-8.9) g/dL Albumin (3.2-5.2) g/dL Globulin (2-4) g/dL Albumin/Globulin Ratio (1-3) TSH (0.34-5.60) mcIU/mL Urine Color Jessica Urine Appearance Cloudy Urine pH 5.0 (5-9) Ur Specific Franklin 1.019 (1.010-1.030) Urine Protein 1+(30 mg/dl) H (Negative) Urine Ketones Trace H (Negative) Urine Blood Negative (Negative) Urine Nitrate Negative (Negative) Urine Bilirubin Negative (Negative) Urine Urobilinogen Negative (Negative) Ur Leukocyte Esterase 3+ H (Negative) Urine WBC (Auto) 3+(>20/hpf) H (Absent) Urine RBC (Auto) 2+(6-10/hpf) H (Absent) Ur Squamous Epith Cells Present H (Absent) Urine Bacteria 1+ H (Absent) Hyaline Casts Present H (Absent) Urine Glucose Negative (Negative) Urine Ascorbic Acid * H (Negative) Result Diagrams: 11/23/16 10:21 11/23/16 10:21 Lab Statement: Any lab studies that have been ordered have been reviewed, and results considered in the medical decision making process. - Radiology CXR Xray Interpretation: Positive (See Comments) - Findings suggestive of CHF. ED physician has reviewed this report and agrees. Radiology Interpretation Completed By: Radiologist - CT CT Brain CT Interpretation: No Acute Changes - No acute intracranial pathology. ED physician has reviewed this report and agrees. CT Interpretation Completed By: Radiologist - EKG 10:30 Cardiac Rate: NL - 64 BPM EKG Rhythm: Atrial Fibrillation EKG Interpretation: Controlled rate. Occasional paced beats. Altered Mental Statu Course/Dx - Course Course Of Treatment: Ms. Olivares presented with AMS according to her daughter. She perked up with some fluid and was found to have a UTI. She will go back with antibiotics. - Diagnoses Discharge Diagnoses: UTI (urinary tract infection) - Provider Notifications Discussed Care Of Patient With: Layton Parry Time Discussed With Above Provider: 11:20 Instructed by Provider To: Other - I consulted with Layton Parry [employer] MINE INSPECTOR, hospitalist, regarding patient care. He came to the ED to evaluate the patient and relayed his examination to me at 12:00. Discharge - Discharge Plan Condition: Stable Disposition: HOME Prescriptions: Ciprofloxacin TAB* [Cipro Tab*] 500 mg PO BID #20 tab Patient Education Materials: Urinary Tract Infection in Women (ED) Referrals: Waldemar Washington MD [Primary Care Provider] - 3 Days Additional Instructions: Follow up with your primary care provider in 2-3 days. Return to the emergency department for any new or worsening symptoms. The documentation as recorded by the Stuart ybarra Thomas accurately reflects the service I personally performed and the decisions made by me, Angel Ochoa MD.
--- NOTE | 2016-11-26 08:57 | PN ---
Progress Note - Progress Note Date of Service: 11/23/16 Note: preliminary culture results 75-100,000 of e faecalis. treated and diagnosed with UTI. treated with cipro. will wait for final sensitivity results. no further action required at this time.
== END | disposition home or self-care (01) ==
LOC: ED 08:59
DX: N39.0 Urinary tract infection, site not specified (principal)
CPT/HCPCS: 36415; 70450; 71010; 80053; 81003; 81015; 82140; 83605; 83735; 84443; 84484; 85025; 87040; 87077; 87086; 87186; 93005; 99285; A9270-GY

== ENCOUNTER 2017-02-13 06:27 | Inpatient (IN) | payer MEDICARE ==
[2017-02-13 06:56] LABS: Hematocrit 38 % (35-47); Hemoglobin 12.6 g/dl (12.0-16.0); Mean Corpuscular HGB Conc 33 g/dl (31-36); Mean Corpuscular Hemoglobin 32 pg (27-31); Mean Corpuscular Volume 97 fL (80-97); Mean Platelet Volume 10 um3 (7.4-10.4); Platelet Count 98 10^3/ul (150-450); Red Blood Count 3.95 10^6/ul (4.0-5.4); Red Cell Distribution Width 16 % (10.5-15); White Blood Count 4.9 10^3/ul (3.5-10.8)
[2017-02-13] MEDS ORDERED: NS 0.9% 1000 ML* 2,000 ML IV ONE (07:34)
[2017-02-13 07:46] LABS: EGFR Non-African American 58.2 (>60)
[2017-02-13] MEDS ORDERED: cefTRIAXone(*) 1 GM in NS 0.9% 50 ML* 50 ML IVPB ONE (08:00)
[2017-02-13 08:08] LABS: Urine Appearance Cloudy; Urine Color Straw; Urine Ketones Negative (Negative); Urine Specific Gravity 1.035 (1.010-1.030); Urine Urobilinogen Negative (Negative)
[2017-02-13 08:09] LABS: Urine Blood 1+ (Negative); Urine Protein 2+(100 mg/dL) (Negative)
[2017-02-13] MEDS ORDERED: NS 0.9% 50 ML* 50 ML ONE (08:18)
[2017-02-13] MEDS ORDERED: cefTRIAXone VIAL(*) 1,000 MG VIAL ONE (08:19)
[2017-02-13 09:05] LABS: ABS Basophils 0 10^3/ul (0-0.2); ABS Eosinophils 0.2 10^3/ul (0-0.6); ABS Lymphocytes 1.3 10^3/ul (1.0-4.8); ABS Monocytes 0.7 10^3/ul (0-0.8); ABS Neutrophils 2.7 10^3/ul (1.5-7.7); ABS Nucleated RBC 0.02 10^3/ul; Eosinophil % 4.3 % (0-6); Lymphocyte % 26.9 % (25-47); Nucleated Red Blood Cells % 0.3
--- NOTE | 2017-02-13 10:11 | RAD ---
Indication: UTI. Altered mental status. History of congestive heart failure and COPD; O2 dependent. Comparison: November 23, 2016 Technique: Supine AP 0940 hours Report: Median sternotomy wires, RIGHT atrial and RIGHT ventricular level pacemaker leads. Unchanged cardiomegaly. Prominent mildly ill-defined central pulmonary vasculature and diffuse mild prominence of interstitial markings. Small dependent RIGHT pleural effusion with proportional basilar atelectasis. Negative for pneumothorax. IMPRESSION: The constellation of findings is most consistent with pulmonary vascular congestion and interstitial edema with associated small RIGHT pleural effusion.
[2017-02-13 10:40] LABS: Urine Appearance Cloudy; Urine Blood 1+ (Negative); Urine Color Amber; Urine Ketones Negative (Negative); Urine Protein 2+(100 mg/dL) (Negative); Urine Specific Gravity 1.023 (1.010-1.030); Urine Urobilinogen Negative (Negative)
[2017-02-13] MEDS ORDERED: Acetaminophen TAB* 325 MG PO PRN (12:20)
[2017-02-13] MEDS ORDERED: Magnesium Hydroxide LIQ* 30 ML UDC PO PRN (12:20)
[2017-02-13] MEDS ORDERED: traMADol TAB* 50 MG PO PRN (12:20)
[2017-02-13] MEDS ORDERED: traMADol TAB* 50 MG PO SCH (14:00)
--- NOTE | 2017-02-13 14:31 | ED ---
Anthony Leone Tecjoon, scribed for Moi Allen MD on 02/13/17 at 0815 . Complex/Multi-Sys Presentation - HPI Summary HPI Summary: This patient is a 89 year old female BIBA to [facility] with a chief complaint of increased agitation since this morning. At the time of exam, patient looks extremely dehydrated and is unresponsive. There is slight discoloration in bilateral lower extremities. Nurse states that patient has a chronic UTI . HPI limited due to level 5 caveat: AMS - History Of Current Complaint Chief Complaint: EDUrogenitalProblems Time Seen by Provider: 02/13/17 07:32 Hx Obtained From: EMS, Medical Records Hx From Patient Unobtainable Due To: Altered Mental Status Onset/Duration: Still Present Associated Signs And Symptoms: Positive: Other - dehydration, dry mouth - Allergies/Home Medications Allergies/Adverse Reactions: Allergies Allergy/AdvReac Type Severity Reaction Status Date / Time Penicillins Allergy Intermediate See Comment Verified 11/08/16 08:59 Latex Allergy Unknown Verified 11/08/16 08:59 Reaction Details PMH/Surg Hx/FS Hx/Imm Hx Previously Healthy: No - PMHx limited due to level 5 caveat: AMS Endocrine/Hematology History: Reports: Hx Thyroid Disease Cardiovascular History: Reports: Hx Congestive Heart Failure, Hx Hypertension - ON MEDICATION FOR, Hx Pacemaker/ICD, 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 Respiratory History: Reports: Other Respiratory Problems/Disorders - OXYGEN 2L ALL THE TIME GI History: Reports: Other GI Disorders - CONSTIPATION Musculoskeletal History: Reports: Other Musculoskeletal History - LOWER BACKACHES Sensory History: Reports: Hx Contacts or Glasses - GLASSES Denies: Hx Hearing Aid Opthamlomology History: Reports: Hx Contacts or Glasses - GLASSES Psychiatric History: Reports: Hx Depression - HX OF - HAS SEEN A PSYCHOLOGIST - Surgical History Surgery Procedure, Year, and Place: pacemaker placed 2007 or later, aortic valve replacement Hx Anesthesia Reactions: No - Immunization History Date of Tetanus Vaccine: unk Date of Influenza Vaccine: unk Infectious Disease History: No Infectious Disease History: Denies: Traveled Outside the [place] in Last 30 Days - Family History Known Family History: Positive: Other - thyroid disease Family History: FHx limited due to level 5 caveat: AMS - Social History Alcohol Use: None Hx Substance Use: No Substance Use Type: Reports: None Hx Tobacco Use: No Smoking Status (MU): Never Smoked Tobacco Review of Systems Negative: Fever Positive: Other - dry mouth, dehydration Genitourinary: Other - UTI All Other Systems Reviewed And Are Negative: No - Comments Additional Review of Systems Comments: ROS limited due to level 5 caveat: AMS Physical Exam - Summary Physical Exam Summary: VITAL SIGNS: Reviewed. GENERAL: Patient is an elderly, fragile female who is lying in the stretcher. Patient is not in any acute respiratory distress. Patient is not verbal HEAD AND FACE: Normocephalic EYES: PERRLA, EOMI x 2. MOUTH: Mouth is extremely dehydrated. Poor dental hygiene. LUNGS: Clear to auscultation bilaterally. No wheezing or crackles. CVS: Regular rate and rhythm, S1 and S2 present, no murmurs or gallops appreciated. ABDOMEN: Soft, non-tender. Bowel sounds are normal. No abdominal abnormal pulsations NEURO: Patient is obtunded. Nonverbal. SKIN: Dry and warm. Increased skin turgor PE limited due to level 5 caveat: AMS Triage Information Reviewed: No Vital Signs On Initial Exam: Initial Vitals Temp Pulse Resp BP Pulse Ox 97.4 F 52 20 137/51 92 02/13/17 06:29 02/13/17 06:29 02/13/17 06:29 02/13/17 06:29 02/13/17 06:29 Vital Signs Reviewed: No Completion Of Physical Exam Limited Due To: Altered Mental Status, Level 5 Diagnostics - Vital Signs Vital Signs Temp Pulse Resp BP Pulse Ox 02/13/17 06:48 112 02/13/17 06:47 123/67 02/13/17 06:29 97.4 F 52 20 137/51 92 - Laboratory Lab Results: Lab Results 02/13/17 02/13/17 Range/Units 06:52 06:52 WBC 4.9 (3.5-10.8) 10^3/ul RBC 3.95 L (4.0-5.4) 10^6/ul Hgb 12.6 (12.0-16.0) g/dl Hct 38 (35-47) % MCV 97 (80-97) fL MCH 32 H (27-31) pg MCHC 33 (31-36) g/dl RDW 16 H (10.5-15) % Plt Count 98 L (150-450) 10^3/ul MPV 10 (7.4-10.4) um3 Sodium 141 (133-145) mmol/L Potassium 4.0 (3.5-5.0) mmol/L Chloride 97 L (101-111) mmol/L Carbon Dioxide 42 H* (22-32) mmol/L Anion Gap 2 (2-11) mmol/L BUN 15 (6-24) mg/dL Creatinine 0.91 (0.51-0.95) mg/dL Est GFR ( Amer) 74.9 (>60) Est GFR (Non-Af Amer) 58.2 (>60) BUN/Creatinine Ratio 16.5 (8-20) Glucose 73 (70-100) mg/dL Calcium 9.1 (8.6-10.3) mg/dL Total Bilirubin 1.80 H (0.2-1.0) mg/dL AST 23 (13-39) U/L ALT 8 (7-52) U/L Alkaline Phosphatase 101 (34-104) U/L Total Protein 6.4 (6.4-8.9) g/dL Albumin 3.0 L (3.2-5.2) g/dL Globulin 3.4 (2-4) g/dL Albumin/Globulin Ratio 0.9 L (1-3) Result Diagrams: 02/13/17 06:52 02/13/17 06:52 Lab Statement: Any lab studies that have been ordered have been reviewed, and results considered in the medical decision making process. - Radiology CXR Xray Interpretation: Positive (See Comments) Radiology Interpretation Completed By: Radiologist Complex Multi-Symp Course/Dx Course Of Treatment: This patient is a 89 year old female BIBA to [facility] with a chief complaint of increased agitation since this morning. At the time of exam , patient looks extremely dehydrated and is unresponsive. There is slight discoloration in bilateral lower extremities. Nurse states that patient has a chronic UTI. Patient is a level 5 caveat. CXR reveals, per radiologist, IMPRESSION: The constellation of findings is most consistent with pulmonary vascular congestion and interstitial edema with associated small RIGHT pleural effusion. ED physician has reviewed this radiology report. Bloodwork Obtained. Straight cath Urinalysis Obtained. In the ED course the patient was given Rocephin and IVF since patient seems to have a UTI and possible sepsis. She also has Hypercabnia and possible the reason of her change in mental status. She was placed in a Bipap. We discussed patient care with Dr. Pires ( Hospitalist) at 0902 and they agreed to admit the patient. - Diagnoses Differential Diagnoses/HQI/PQRI: Metabolic Abnormality, Sepsis, Urinary Tract Infection Provider Diagnoses: Mental status change, UTI (urinary tract infection), Sepsis, Hypercapnia - Physician Notifications Discussed Care Of Patient With: Kya Pires - Hospitalist Time Discussed With Above Provider: 09:02 - We discussed patient care with Dr. Pires (Hospitalist) at 0902 and they agreed to admit the patient. Instructed by Provider To: Admit As Inpatient - Critical Care Time Critical Care Time: 30-74 min Discharge - Discharge Plan Condition: Stable Disposition: ADMITTED TO [facility] The documentation as recorded by the Anthony ybarra Tecjoon accurately reflects the service I personally performed and the decisions made by Alejandro dee Walter, MD.
[2017-02-13] MEDS ORDERED: Warfarin TAB(*) 3 MG PO SCH (17:00)
--- NOTE | 2017-02-13 17:10 | PN ---
Progress Note - Progress Note Date of Service: 02/13/17 Note: Elderly female with dementia admitted from [place] with UTI and altered mental status (agitation). Patient has Hx of chronic respiratory failure and is on home O2 at 2 L/min. Other medical problems include hypertension, CHF, s/p aortic valve replacement, s/p pacemaker placement. After ED evaluation, patient was placed on ceftriaxone (for UTI) and admitted to ICU for BiPAP (which did not improve gas exchange) and hydration. Patient is DNI/DNR
--- NOTE | 2017-02-13 19:39 | HP ---
CC: Waldemar Washington MD * HISTORY AND PHYSICAL: DATE OF ADMISSION: 02/13/17 PRIMARY CARE PROVIDER: Waldemar Washington MD ATTENDING PHYSICIAN: Kya Pires DO * (dictated by Paola Cai NP). CHIEF COMPLAINT: Combativeness. HISTORY OF PRESENT ILLNESS: Ms. Olivares is an 89-year-old female with past medical history significant for dementia, chronic heart failure, atrial fibrillation, severe pulmonary hypertension, hypertension, depression, anxiety, GERD, and chronic hypoxic respiratory failure on 2 L via nasal cannula, who resides at [facility]. According to the patient's daughter, the patient had been in her usual state of health. She had had an annual physical on 02/10/17. The patient's daughter, Petra, states that she had noticed her mother has been generally declining over the last year. She reports that she got a call at approximately 6 a.m. this morning from [place], stating that her mother was very combative when they were trying to change her after she had been incontinent of urine. At baseline, the patient is incontinent of urine. Petra states that her mother has had no recent complaints such as fever or chills, chest pain, shortness of breath. She states that at baseline, she is able to transfer herself from the bed to a chair. Due to the patient's agitation, EMS was called and she was brought to the emergency room for further evaluation. While in the emergency room, the patient had labs showing no leukocytosis. She had an ABG, showing a normal pH, elevated pCO2 of 72. She had a serum carbon dioxide of 42, a urinalysis that appears to be positive. She was influenza A and B negative. The patient was placed on a BiPAP and her CO2 actually got higher. She had a chest x-ray showing pulmonary vascular congestion and interstitial edema with a right pleural effusion. The hospitalists were asked to evaluate the patient for admission. PAST MEDICAL HISTORY: 1. Dementia. 2. Chronic heart failure. 3. Atrial fibrillation. 4. Severe pulmonary hypertension. 5. Hypertension. 6. Depression. 7. Anxiety. 8. GERD. 9. Chronic respiratory failure, both hypoxic and hypercarbic, on 2 L via nasal cannula. 10. Hypothyroidism. PAST SURGICAL HISTORY: 1. Status post pacemaker insertion and generator change. 2. Status post bioprosthetic aortic valve replacement. 3. Status post hysterectomy. HOME MEDICATIONS: Include: 1. Trazodone 25 mg oral daily at at bedtime. 2. Tramadol 50 mg oral 3 times daily. 3. Tramadol 50 mg oral daily as needed for breakthrough pain. 4. Warfarin 1.5 mg oral daily on Monday, Monday, Monday, Monday, and Monday; and 3 mg daily on Monday, . 5. Spironolactone 25 mg oral every morning. 6. Zoloft 50 mg oral every morning. 7. Seroquel 50 mg oral daily at bedtime. 8. Potassium chloride 10 mEq oral daily. 9. MiraLax 17 g oral every morning. 10. Omeprazole 20 mg oral daily. 11. Milk of magnesia 30 mL oral daily at bedtime as needed for constipation. 12. Lovastatin 20 mg oral daily. 13. Levothyroxine 137 mcg oral every morning. 14. Lactobacillus 1 tablet oral daily. 15. Vitamin D 2000 units oral daily. 16. Caltrate 600 plus D 1 tablet oral twice daily. 17. Bumex 0.5 mg oral daily. 18. Atenolol 12.5 mg oral every morning. 19. Vitamin C 500 mg oral daily. 20. Acetaminophen 650 mg oral every 4 hours as needed for pain. ALLERGIES: PENICILLIN and LATEX. FAMILY HISTORY: Unable to elicit due to the patient's current lethargy. SOCIAL HISTORY: The patient has no significant smoking history or regular alcohol consumption or recreational drug use. She is a long-term resident of [place]. She is essentially wheelchair bound, but able to transfer at baseline. Her daughter, Petra Morrell, will be her surrogate decision maker in the event if she is unable to make decisions for herself. REVIEW OF SYSTEMS: I performed a 14-point of review of systems with the daughter, but was unable to perform this with the patient. All the pertinent positives and negatives that were elicited are mentioned in the history of present illness. PHYSICAL EXAMINATION GENERAL APPEARANCE: The patient is lethargic, appears to be in no acute distress. VITAL SIGNS: Temperature 97.4, heart rate 62, respiratory rate 17, O2 sat 87% on BiPAP, blood pressure 104/44. HEENT: Normocephalic, atraumatic. Pupils are equal and reactive. The patient' s mucous membranes are dry. RESPIRATORY: There is no accessory muscle use. The lungs are clear to auscultation bilaterally. CARDIOVASCULAR: Regular rate and rhythm. S1 and S2 are present. There is no murmur, rubs or gallops heard. ABDOMEN: Soft, nontender, nondistended. There are bowel sounds present x4. EXTREMITIES: The patient has mild bilateral lower extremity edema. NEUROLOGICAL: The patient is lethargic, minimally responsive. She does answer simple questions. PSYCHOLOGICAL: The patient is calm and cooperative at this time. SKIN: There is no rashes or abnormalities seen. She has increased skin turgor. DIAGNOSTIC STUDIES/LABORATORY DATA: Sodium 141, potassium 4.0, chloride 97, CO2 of 42, BUN 15, creatinine 0.91, glucose 73. White blood cell count 4.9, hemoglobin 12.6, hematocrit 38, and platelet count 98,000. Total bilirubin is 1.8. Initial ABG shows a pH of 7.39, pCO2 of 72, pO2 of 137, HCO3 of 36.8, oxygen saturation 99.7%, base excess 15.3 on FiO2 of 6. Repeat ABG after approximately an hour on BiPAP shows pH of 7.35, pCO2 of 78, pO2 of 326, HCO3 is 35.9, O2 sat of 100.2%, base excess 14.1, FiO2 of 80 on EPA of 5 and IPA of 12. Urinalysis shows specific gravity of 1.035, urine proteins 2+, blood 1+, leukocyte esterase 3+, wbc's 3+, squamous epithelial cells present, bacteria 2+ , ascorbic acid present. Chest x-ray from today. Radiologist's impression: The consolidation of findings is most consistent with pulmonary vascular congestion and interstitial edema with associated small right pleural effusion. IMPRESSION: Ms. Olivares is an 89-year-old female with past medical history significant for dementia, chronic heart failure, atrial fibrillation, severe pulmonary hypertension, hypertension, anxiety, depression, gastroesophageal reflux disease, chronic respiratory failure both hypercarbic and hypoxic on home O2, who presents to the emergency room from [place] after being combative this morning. She will be admitted as an inpatient for altered mental status. ASSESSMENT/PLAN: 1. Altered mental status. I suspect this is secondary to both acute-on- chronic hypercarbic and hypoxic respiratory failure in addition to a urinary tract infection. We will trial the patient on BiPAP and see if her mentation improves. 2. Urinary tract infection. The patient will be continued on IV ceftriaxone. Blood cultures have been obtained. She is currently afebrile and has no leukocytosis. 3. Respiratory failure. The patient has both leetu-[id number] hypercarbic and hypoxic respiratory failure. For now, again we will continue her on a BiPAP trial. 4. Chronic heart failure. We will hold further IV fluids, as I do not want to overload her. She will be on strict I's and O's, daily weights. We will continue her Bumex and spironolactone. 5. Hypothyroidism. The patient will be continued on her home levothyroxine. Her TSH was 4.59 in November. 6. Atrial fibrillation. The patient will be continued on warfarin. We will recheck an INR in the morning. She is also to be continued on atenolol. 7. Dementia. The patient will be continued on her home Seroquel. 8. Anxiety and depression. She will be continued on Zoloft. 9. Fluids, electrolytes, nutrition. If the patient is able to eat, she will be allowed a low-sodium diet if she will tolerate being off her BiPAP. 10. Code status: Do not resuscitate, do not intubate. We filled out a new MOLST form with the daughter. The daughter is agreeable to trial a noninvasive BiPAP. 11. DVT prophylaxis. Highest risk. The patient will be continued on her home warfarin. 12. Disposition. Inpatient. TIME SPENT: Time for this admission was approximately 75 minutes, greater than half of that was spent with the patient and her daughter discussing medications , past medical history, events leading up to her arrival today, performing a physical examination. The case has been reviewed with the attending, Dr. Pires, who agrees with the plan of care. Reviewed by CRISTOBAL LOPEZ 02/14/172026 [id number]/[facility] #: [id number] TRUPTI
[2017-02-13] MEDS ORDERED: traZODone TAB* 50 MG TAB PO SCH (21:00)
[2017-02-13] MEDS ORDERED: QUEtiapine TAB* 25 MG PO SCH (21:00)
[2017-02-14 05:50] LABS: INR 3.32 (0.77-1.02)
[2017-02-14] MEDS: Levothyroxine TAB* 137 MCG TAB PO SCH (06:28)
[2017-02-14] MEDS: Atenolol TAB* 25 MG PO SCH (09:00)
[2017-02-14] MEDS ORDERED: Bumetanide TAB* 1 MG PO SCH (09:00)
[2017-02-14] MEDS: Potassium Chloride LIQUID* 20 MEQ PACKET PO SCH (09:00)
[2017-02-14] MEDS ORDERED: Sertraline* 50 MG TAB PO SCH (09:00)
[2017-02-14] MEDS ORDERED: Omeprazole CAP* 20 MG PO SCH (09:00)
[2017-02-14] MEDS ORDERED: Ascorbic Acid TAB* 500 MG PO SCH (09:00)
[2017-02-14] MEDS ORDERED: Polyethylene Glycol 3350* 17 GM PACKET PO SCH (09:00)
[2017-02-14] MEDS ORDERED: Potassium Chlor TAB* 10 MEQ TAB.ER PO SCH (09:00)
[2017-02-14] MEDS: Spironolactone TAB* 25 MG PO SCH (09:00)
[2017-02-14] MEDS: cefTRIAXone(*) 1 GM in NS 0.9% 50 ML* 50 ML IVPB SCH (12:13)
--- NOTE | 2017-02-14 13:41 | PN ---
Critical Care Services: Patient more alert today and is off BiPAP and oxygenating adequately. I suspect patient was dehydrated yesterday and improved because of the IV hydration. Vital Signs: Temp Pulse Resp BP SpO2 FiO2 98.9 F 112 35 136/95 98 30 Physical Exam: Gen: Awake but confused Lungs: Occasional rhonchi. No crackles. Extremities: 3+edema both legs Fluid Balance (Past 24 Hours): 02/14/17 06:59 Intake Total 4277 Output Total 280 Balance +3997 Weight 240 lb Intake: IV Fluids 4177 LR 2177 NS (0.9%) 2000 Oral 100 Output: Miranda 280 Labs: 02/13/17 02/14/17 21:41 05:20 INR (Anticoag Therapy) 3.32 H ABG pH 7.40 ABG pCO2 65 ABG pO2 182 ABG HCO3 34.9 ABG O2 Saturation 100.2 ABG Base Excess 12.8 O2 Delivery Device bipap FiO2 50 Inspiratory Time 1.0 EPAP 5 IPAP 14 Studies: Urine growing enterococcus faecium (75-100,000 cfu/ml) - sensitivities not available. Nutrition: Oral diet Impression: Much more alert today after hydration, antibiotics, and BiPAP overnight. Patient has a UTI, but is not septic (i.e., lactate is normal). Plan: 1. Use BiPAP as needed. 2. I will stop the IV hydration (considering the leg edema). 3. Continue ceftriaxone for UTI, pending sensitivities.
[2017-02-14] MEDS ORDERED: Warfarin TAB(*) 3 MG PO SCH (17:00)
[2017-02-14] MEDS: LORazepam INJ* 2 MG/ML 1 ML VIAL IV PUSH PRN (18:12)
[2017-02-15] MEDS: Levothyroxine TAB* 137 MCG TAB PO SCH (05:19)
[2017-02-15 06:16] LABS: Hematocrit 39 % (35-47); Hemoglobin 12.6 g/dl (12.0-16.0); Mean Corpuscular HGB Conc 32 g/dl (31-36); Mean Corpuscular Hemoglobin 32 pg (27-31); Mean Corpuscular Volume 99 fL (80-97); Mean Platelet Volume 10 um3 (7.4-10.4); Platelet Count 113 10^3/ul (150-450); Red Blood Count 3.94 10^6/ul (4.0-5.4); Red Cell Distribution Width 16 % (10.5-15); White Blood Count 7.2 10^3/ul (3.5-10.8)
[2017-02-15 06:25] LABS: INR 4.64 (0.77-1.02)
[2017-02-15 06:38] LABS: EGFR Non-African American 67.5 (>60)
[2017-02-15] MEDS: Atenolol TAB* 25 MG PO SCH (08:59)
[2017-02-15] MEDS: Spironolactone TAB* 25 MG PO SCH (08:59)
[2017-02-15] MEDS: Potassium Chloride LIQUID* 20 MEQ PACKET PO SCH (09:00)
[2017-02-15] MEDS: cefTRIAXone(*) 1 GM in NS 0.9% 50 ML* 50 ML IVPB SCH (09:01)
--- NOTE | 2017-02-15 14:30 | RAD ---
HISTORY: UTI COMPARISONS: February 14, 2012 VIEWS: 1: frontal portable view of the chest at 2:15 PM FINDINGS: LINES AND TUBES: A left-sided pacemaker is noted. CARDIOMEDIASTINAL SILHOUETTE: The cardiac silhouette is enlarged. The cardiomediastinal silhouette is otherwise normal for portable technique. A prosthetic heart valve is noted. PLEURA: The costophrenic angles are sharp. No pleural abnormalities are noted. LUNG PARENCHYMA: There is a diffuse reticular pattern with indistinct pulmonary vessels. ABDOMEN: The upper abdomen is clear. There is no subphrenic gas. BONES AND SOFT TISSUES: The patient is status post median sternotomy. IMPRESSION: CARDIOMEGALY WITH PULMONARY INTERSTITIAL EDEMA
[2017-02-15] MEDS ORDERED: Furosemide IV* 10 MG/ML 2 ML VIAL (20 MG) IV ONE ×2 (14:47→17:47)
--- NOTE | 2017-02-15 18:08 | PN ---
Subjective Date of Service: 02/15/17 Interval History: Patient was able to be weaned off of BiPAP, but was put back on overnight and has been on throughout the day. Unable to transfer to [facility]. Repeat ABG shows persistent hypercarbia but improved. Patient very sedated and oriented only to self. Patient denies F/C, abdominal pain, N/V, CP, MORALES, Changes in vision , or other pain. Family History: Unchanged from Admission Social History: Unchanged from Admission Past Medical History: Unchanged from Admission Objective Active Medications: Atenolol (Tenormin Tab*) 12.5 mg PO QAM [facility] Last Admin: 02/15/17 08:59 Dose: 12.5 mg Ceftriaxone Sodium 1 gm/ (Sodium Chloride) 50 mls @ 200 mls/hr IVPB Q24H [facility] Last Admin: 02/15/17 09:01 Dose: 200 mls/hr Levothyroxine Sodium (Synthroid Tab*) 137 mcg PO 0600 [facility] Last Admin: 02/15/17 05:19 Dose: 137 mcg Lorazepam (Ativan Inj*) 1 mg IV PUSH Q6H PRN PRN Reason: ANXIETY Last Admin: 02/14/17 18:12 Dose: 0.5 mg Potassium Chloride (Klor-Con Liquid*) 10 meq PO DAILY [facility] Last Admin: 02/15/17 09:00 Dose: 10 meq Spironolactone (Aldactone Tab*) 25 mg PO QAM [facility] Last Admin: 02/15/17 08:59 Dose: 25 mg Warfarin Sodium (Coumadin Tab(*)) 3 mg PO MoTh@1700 [facility] PRN Reason: Protocol Last Admin: 02/13/17 17:04 Dose: 3 mg Vital Signs - 8 hr 02/15/17 02/15/17 02/15/17 11:00 11:01 12:00 Temperature 97.3 F Pulse Rate 58 60 Respiratory 24 28 19 Rate Blood Pressure 143/88 (mmHg) O2 Sat by Pulse 78 93 Oximetry 02/15/17 02/15/17 02/15/17 12:01 13:00 13:02 Temperature Pulse Rate 60 63 64 Respiratory 29 20 21 Rate Blood Pressure 135/75 147/51 (mmHg) O2 Sat by Pulse 94 85 91 Oximetry 02/15/17 02/15/17 02/15/17 14:00 15:00 15:01 Temperature Pulse Rate 60 60 61 Respiratory 20 15 21 Rate Blood Pressure 144/78 145/93 (mmHg) O2 Sat by Pulse 98 91 96 Oximetry 02/15/17 02/15/17 02/15/17 16:00 16:01 17:00 Temperature Pulse Rate 65 61 63 Respiratory 22 19 20 Rate Blood Pressure 138/76 (mmHg) O2 Sat by Pulse 92 96 89 Oximetry 02/15/17 17:02 Temperature Pulse Rate 64 Respiratory 25 Rate Blood Pressure (mmHg) O2 Sat by Pulse 83 Oximetry Oxygen Devices in Use Now: BiPAP Appearance: Patient is an 89yo female who appears stated age and is sitting in the bed with increased WOB and on BiPAP Eyes: No Scleral Icterus, PERRLA, - - Swelling and redness around left eye. No signs of cellulitis. Significant edema. Ears/Nose/Mouth/Throat: NL Teeth, Lips, Gums, Clear Oropharnyx, - - Dry Mucous Membranes with dried secretions. No signs of thrush. Neck: NL Appearance and Movements; NL JVP, Trachea Midline Respiratory: Symmetrical Chest Expansion and Respiratory Effort, - - Diffusely decreased and rhonchorous. Cardiovascular: NL Sounds; No Murmurs; No JVD, - - Irregularly Irregular rhythm , rate 60-80. 1+ edema in B/L LE. Pulses 2+ in B/L radial, DP/PT. Abdominal: NL Sounds; No Tenderness; No Distention, No Hepatosplenomegaly Lymphatic: No Cervical Adenopathy Extremities: No Clubbing, Cyanosis Skin: No Nodules or Sclerosis, - - Ecchymosis on B/L upper extremities. Neurological: NL Sensation, NL Muscle Strength and Tone Result Diagrams: 02/15/17 05:30 02/15/17 05:30 Additional Lab and Data: Lab Results Microbiology and Other Data: Microbiology 02/13/17 10:24 Urine Culture - Preliminary Urine Enterococcus Faecium 02/13/17 17:50 Nasal Screen MRSA (PCR)(WENDI) - Final Nasal Mrsa Positive 02/13/17 11:40 Influenza Types A,B Antigen (WENDI) - Final Nasal Specimen received for Influenza A/B Molecular testing Assess/Plan/Problems-Billing Assessment: Patient is an 89yo female with a PMH significant for dementia, CHF, Afib, HTN, Chronic Respiratory failure, and previous UTI who presents with UTI and respiratory failure. Patient initially improved with fluid, but then deteriorated and had to go back on BiPAP with worsening pulmonary edema on CXR. - Patient Problems (1) Acute and chronic respiratory failure ([id number]) Current Visit: Yes Status: Acute Code(s): J96.20 - ACUTE AND CHR RESP FAILURE, UNSP W HYPOXIA OR HYPERCAPNIA SNOMED Code(s): 66551945 Comment: Chronic hypoxic and hypercarbic respiratory failure, worsened, on BiPAP for most of day, improved hypercarbia and hypoxia on ABG. Likely from CHF exacerbation and fluid overload. Aggressive Diuresis and continue BiPAP. Failed several attempts to wean off BiPAP. (2) UTI (urinary tract infection) Current Visit: No Status: Acute Comment: Urine culture growing enterococcus. Negative BC so far. Awaiting susceptibilities. On Ceftriaxone, asymptomatic, emery in place. (3) Acute on chronic heart failure Current Visit: No Status: Acute Code(s): I50.9 - HEART FAILURE, UNSPECIFIED SNOMED Code(s): 986731589 Comment: HFpEF, EF 55-60 on previous echo. Positive 6L since hospitalized. Given 40mg lasix IV. On Bumex .5mg PO daily at home. Daily weights, gained 5 pounds since admission. Strict I/O with [facility]. (4) Atrial fibrillation Current Visit: No Status: Acute Code(s): I48.91 - UNSPECIFIED ATRIAL FIBRILLATION SNOMED Code(s): 65025408 Comment: Rate controlled, paced. Anticoagulated with Coumadin chronically, Coumadin held today due to supratherapeutic INR. Will recheck and restart coumadin as needed. (5) Hypertension Current Visit: No Status: Acute Code(s): I10 - ESSENTIAL (PRIMARY) HYPERTENSION SNOMED Code(s): 81893950 Comment: Now normotensive, hypotensive at admission diuretics as above (6) Supratherapeutic INR Current Visit: No Status: Acute Code(s): R79.1 - ABNORMAL COAGULATION PROFILE SNOMED Code(s): 559988313 Comment: INR 4.64 up from 3.32 at admission. Purpuric rash on arms, not likely new. H/H stable. Coumadin held, will monitor. No indication for reversal at this time. (7) DVT prophylaxis Current Visit: No Status: Acute Code(s): WZZ2158 - SNOMED Code(s): 645585994 Comment: Coumadin (8) DNR (do not resuscitate) Current Visit: No Status: Acute Comment: Signed MOLST Status and Disposition: Patient is admitted to ICU for BiPAP.
[2017-02-16 06:08] LABS: ABS Basophils 0 10^3/ul (0-0.2); ABS Eosinophils 0.1 10^3/ul (0-0.6); ABS Monocytes 1.1 10^3/ul (0-0.8); ABS Neutrophils 4.5 10^3/ul (1.5-7.7); ABS Nucleated RBC 0.01 10^3/ul; Eosinophil % 1.6 % (0-6); Hematocrit 40 % (35-47); Hemoglobin 12.9 g/dl (12.0-16.0); Lymphocyte % 14.2 % (25-47); Mean Corpuscular HGB Conc 32 g/dl (31-36); Mean Corpuscular Hemoglobin 32 pg (27-31); Mean Corpuscular Volume 98 fL (80-97); Mean Platelet Volume 11 um3 (7.4-10.4); Nucleated Red Blood Cells % 0.1; Platelet Count 118 10^3/ul (150-450); Red Blood Count 4.07 10^6/ul (4.0-5.4); Red Cell Distribution Width 16 % (10.5-15); White Blood Count 6.8 10^3/ul (3.5-10.8)
[2017-02-16 06:19] LABS: EGFR Non-African American 58.2 (>60)
[2017-02-16] MEDS: Levothyroxine TAB* 137 MCG TAB PO SCH (06:48)
[2017-02-16] MEDS ORDERED: Magnesium Sulfate IV* 3 GM in NS 0.9% 100 ML* 100 ML IVPB ONE (07:05)
[2017-02-16] MEDS ORDERED: Furosemide IV* 10 MG/ML 2 ML VIAL (20 MG) IV SLOW PU ONE ×2 (07:17→13:29)
[2017-02-16] MEDS: Potassium Chloride LIQUID* 20 MEQ PACKET PO SCH (08:25)
[2017-02-16] MEDS: Spironolactone TAB* 25 MG PO SCH (08:25)
[2017-02-16] MEDS: cefTRIAXone(*) 1 GM in NS 0.9% 50 ML* 50 ML IVPB SCH (08:25)
[2017-02-16] MEDS: Atenolol TAB* 25 MG PO SCH (08:26)
[2017-02-16 10:37] LABS: INR 6.48 (0.77-1.02)
[2017-02-16] MEDS: Linezolid 600 MG IVPREMIX(*) 600 MG/300 ML BAG IVPB SCH (12:51)
--- NOTE | 2017-02-16 17:09 | PN ---
Subjective Date of Service: 02/16/17 Interval History: Patient is A/Ox1 today and persistently drowsy. Able to get off BiPAP and on 6L NC. Patient denies CP, N/V, abdominal pain, F/C, Changes in Vision, MORALES, or other pain. Family would like to talk about palliative measures, but unavailable today. Family History: Unchanged from Admission Social History: Unchanged from Admission Past Medical History: Unchanged from Admission Objective Active Medications: Atenolol (Tenormin Tab*) 12.5 mg PO QAM [facility] Last Admin: 02/16/17 08:26 Dose: 12.5 mg Linezolid (Zyvox 600 Mg Ivpremix(*)) 600 mg in 300 mls @ 300 mls/hr IVPB Q12H [facility] Last Admin: 02/16/17 12:51 Dose: 300 mls/hr Levothyroxine Sodium (Synthroid Tab*) 137 mcg PO 0600 [facility] Last Admin: 02/16/17 06:48 Dose: 137 mcg Lorazepam (Ativan Inj*) 1 mg IV PUSH Q6H PRN PRN Reason: ANXIETY Last Admin: 02/14/17 18:12 Dose: 0.5 mg Potassium Chloride (Klor-Con Liquid*) 10 meq PO DAILY [facility] Last Admin: 02/16/17 08:25 Dose: 10 meq Spironolactone (Aldactone Tab*) 25 mg PO QAM [facility] Last Admin: 02/16/17 08:25 Dose: 25 mg Vital Signs - 8 hr 02/16/17 02/16/17 02/16/17 10:00 10:01 11:00 Temperature Pulse Rate 60 60 61 Respiratory 26 26 26 Rate Blood Pressure 138/68 127/72 (mmHg) O2 Sat by Pulse 90 93 95 Oximetry 02/16/17 02/16/17 02/16/17 11:01 11:37 12:00 Temperature 98.2 F Pulse Rate 62 61 Respiratory 29 24 Rate Blood Pressure (mmHg) O2 Sat by Pulse 95 93 Oximetry 02/16/17 02/16/17 02/16/17 12:01 13:00 13:02 Temperature Pulse Rate 61 62 58 Respiratory 27 23 15 Rate Blood Pressure 96/77 132/85 (mmHg) O2 Sat by Pulse 97 95 94 Oximetry 01/04/18 01/04/18 01/04/18 14:00 14:22 15:00 Temperature Pulse Rate 62 62 Respiratory 22 27 Rate Blood Pressure (mmHg) O2 Sat by Pulse 100 95 81 Oximetry 02/16/17 02/16/17 02/16/17 15:09 16:00 16:25 Temperature 97.5 F Pulse Rate 64 61 Respiratory 22 16 20 Rate Blood Pressure 138/91 134/62 (mmHg) O2 Sat by Pulse 97 95 Oximetry Oxygen Devices in Use Now: Nasal Cannula Appearance: Patient is an 89yo female who appears stated age and is sitting in the bed in [facility]. Eyes: No Scleral Icterus, PERRLA Ears/Nose/Mouth/Throat: NL Teeth, Lips, Gums, Clear Oropharnyx, - - Very dry mucus membranes with crusting. Neck: NL Appearance and Movements; NL JVP, Trachea Midline Respiratory: Symmetrical Chest Expansion and Respiratory Effort, - - Diffuse rhonchi and crackles. Diminished throughout. Cardiovascular: NL Sounds; No Murmurs; No JVD, RRR, - - 2+ pitting edema in B/L LE. Anasarca. Abdominal: NL Sounds; No Tenderness; No Distention, No Hepatosplenomegaly Lymphatic: No Cervical Adenopathy Extremities: No Clubbing, Cyanosis, - - Bruising on arms, not worsened from previous exam. Skin: No Nodules or Sclerosis Neurological: - - A/Ox1, CN II-XII intact. No focal deficits. Result Diagrams: 02/16/17 05:48 02/16/17 05:48 Additional Lab and Data: Lab Results Microbiology and Other Data: Microbiology 02/13/17 10:24 Urine Culture - Preliminary Urine Enterococcus Faecium 02/13/17 17:50 Nasal Screen MRSA (PCR)(WENDI) - Final Nasal Mrsa Positive 02/13/17 11:40 Influenza Types A,B Antigen (WENDI) - Final Nasal Specimen received for Influenza A/B Molecular testing Assess/Plan/Problems-Billing Assessment: Patient is an 89yo female with a PMH significant for dementia, CHF, Afib, HTN, Chronic Respiratory failure, and previous UTI who presents with UTI and respiratory failure. Patient initially improved with fluid, but then deteriorated and had to go back on BiPAP with worsening pulmonary edema on CXR. - Patient Problems (1) Acute and chronic respiratory failure (gjxju-fo-diyarkd) Current Visit: Yes Status: Acute Code(s): J96.20 - ACUTE AND CHR RESP FAILURE, UNSP W HYPOXIA OR HYPERCAPNIA SNOMED Code(s): 53250842 Comment: Chronic hypoxic and hypercarbic respiratory failure, worsened, on BiPAP for most of day, improved hypercarbia and hypoxia on ABG. Likely from CHF exacerbation and fluid overload. Aggressive Diuresis and continue BiPAP. Failed several attempts to wean off BiPAP. (2) UTI (urinary tract infection) Current Visit: No Status: Acute Comment: Urine culture growing VRE susceptible to Linezolid, Tigecycline, and Synercid . Negative BC so far. Started on Linezolid. (3) Acute on chronic heart failure Current Visit: No Status: Acute Code(s): I50.9 - HEART FAILURE, UNSPECIFIED SNOMED Code(s): 131750706 Comment: HFpEF, EF 55-60 on previous echo. Positive 6L since hospitalized. Given 40mg lasix IV. On Bumex .5mg PO daily at home. Given 60mg IV lasix in hospital with good effect. Daily weights, gained 5 pounds since admission. Strict I/O with Miranda. (4) Atrial fibrillation Current Visit: No Status: Acute Code(s): I48.91 - UNSPECIFIED ATRIAL FIBRILLATION SNOMED Code(s): 24789923 Comment: Rate controlled, paced. Anticoagulated with Coumadin chronically, Coumadin held due to supratherapeutic INR. Will recheck and restart coumadin as needed. (5) Hypertension Current Visit: No Status: Acute Code(s): I10 - ESSENTIAL (PRIMARY) HYPERTENSION SNOMED Code(s): 00532123 Comment: Now normotensive, hypotensive at admission diuretics as above (6) Supratherapeutic INR Current Visit: No Status: Acute Code(s): R79.1 - ABNORMAL COAGULATION PROFILE SNOMED Code(s): 960019701 Comment: INR 6.45 up from 3.32 at admission. Purpuric rash on arms, not likely new. H/H stable. Coumadin held, will monitor. No indication for reversal at this time. (7) DVT prophylaxis Current Visit: No Status: Acute Code(s): STD4855 - SNOMED Code(s): 790165661 Comment: Coumadin (8) DNR (do not resuscitate) Current Visit: No Status: Acute Comment: Signed MOLST Status and Disposition: Patient is admitted to ICU for possible need for BiPAP, hopeful transfer to floor tomorrow.
[2017-02-16] MEDS: LORazepam INJ* 2 MG/ML 1 ML VIAL IV PUSH PRN (21:42)
[2017-02-17] MEDS: Linezolid 600 MG IVPREMIX(*) 600 MG/300 ML BAG IVPB SCH ×3 (00:22→23:39)
[2017-02-17] MEDS: LORazepam INJ* 2 MG/ML 1 ML VIAL IV PUSH PRN (03:01)
[2017-02-17 05:50] LABS: ABS Basophils 0 10^3/ul (0-0.2); ABS Eosinophils 0.2 10^3/ul (0-0.6); ABS Lymphocytes 0.8 10^3/ul (1.0-4.8); ABS Monocytes 1.2 10^3/ul (0-0.8); ABS Neutrophils 3.6 10^3/ul (1.5-7.7); ABS Nucleated RBC 0 10^3/ul; Eosinophil % 2.7 % (0-6); Hematocrit 38 % (35-47); Hemoglobin 12.2 g/dl (12.0-16.0); Lymphocyte % 14.4 % (25-47); Mean Corpuscular HGB Conc 32 g/dl (31-36); Mean Corpuscular Hemoglobin 32 pg (27-31); Mean Corpuscular Volume 98 fL (80-97); Mean Platelet Volume 10 um3 (7.4-10.4); Nucleated Red Blood Cells % 0.1; Platelet Count 100 10^3/ul (150-450); Red Blood Count 3.86 10^6/ul (4.0-5.4); Red Cell Distribution Width 16 % (10.5-15); White Blood Count 5.8 10^3/ul (3.5-10.8)
[2017-02-17 06:03] LABS: EGFR Non-African American 55.4 (>60)
[2017-02-17] MEDS: Levothyroxine TAB* 137 MCG TAB PO SCH (06:09)
[2017-02-17 07:10] LABS: INR 7.75 (0.77-1.02)
[2017-02-17] MEDS ORDERED: Phytonadione Oral Solution* 5 MG/25 ML UDC PO ONE (07:22)
[2017-02-17] MEDS ORDERED: Furosemide IV* 10 MG/ML VIAL (40 MG) IV ONE (08:08)
[2017-02-17] MEDS: Spironolactone TAB* 25 MG PO SCH (08:42)
[2017-02-17] MEDS: Potassium Chloride LIQUID* 20 MEQ PACKET PO SCH (08:42)
[2017-02-17] MEDS: Atenolol TAB* 25 MG PO SCH (08:42)
--- NOTE | 2017-02-17 21:02 | PN ---
Subjective Date of Service: 02/17/17 Interval History: Patient arousable today and able to respond to questioning but is very lethargic. Patient able to be maintained on 6L NC all day. Discussed patient's case with family and patient's limited life expectancy given comorbid conditions and hospitalizations. Discussed palliative car for the future and family was interested. Family History: Unchanged from Admission Social History: Unchanged from Admission Past Medical History: Unchanged from Admission Objective Active Medications: Atenolol (Tenormin Tab*) 12.5 mg PO QAM [facility] Last Admin: 02/17/17 08:42 Dose: 12.5 mg Linezolid (Zyvox 600 Mg Ivpremix(*)) 600 mg in 300 mls @ 300 mls/hr IVPB Q12H [facility] Last Admin: 02/17/17 12:06 Dose: 300 mls/hr Levothyroxine Sodium (Synthroid Tab*) 137 mcg PO 0600 [facility] Last Admin: 02/17/17 06:09 Dose: 137 mcg Lorazepam (Ativan Inj*) 1 mg IV PUSH Q6H PRN PRN Reason: ANXIETY Last Admin: 02/17/17 03:01 Dose: 1 mg Potassium Chloride (Klor-Con Liquid*) 10 meq PO DAILY [facility] Last Admin: 02/17/17 08:42 Dose: 10 meq Spironolactone (Aldactone Tab*) 25 mg PO QAM [facility] Last Admin: 02/17/17 08:42 Dose: 25 mg Vital Signs - 8 hr 02/17/17 02/17/17 02/17/17 13:00 13:01 13:06 Temperature Pulse Rate 61 60 62 Respiratory 26 25 22 Rate Blood Pressure 81/74 86/67 (mmHg) O2 Sat by Pulse 93 93 92 Oximetry 02/17/17 02/17/17 02/17/17 14:00 14:01 15:00 Temperature Pulse Rate 60 60 62 Respiratory 22 22 21 Rate Blood Pressure 135/70 146/63 (mmHg) O2 Sat by Pulse 95 96 96 Oximetry 02/17/17 02/17/17 02/17/17 16:00 16:01 16:48 Temperature 97.7 F 97.8 F Pulse Rate 58 59 120 Respiratory 24 28 21 Rate Blood Pressure 160/54 115/87 (mmHg) O2 Sat by Pulse 94 94 97 Oximetry 02/17/17 02/17/1718 17:00 17:01 18:00 Temperature Pulse Rate 61 61 63 Respiratory 18 22 23 Rate Blood Pressure 115/63 116/93 (mmHg) O2 Sat by Pulse 93 95 95 Oximetry 02/17/17 02/17/17 18:01 19:00 Temperature Pulse Rate 60 69 Respiratory 28 19 Rate Blood Pressure (mmHg) O2 Sat by Pulse 95 95 Oximetry Oxygen Devices in Use Now: High Flow Nasal Cannula Appearance: Patient is an 89yo female who appears stated age and is sitting in the bed in [facility]. Eyes: No Scleral Icterus, PERRLA, - - Cloudy lenses Ears/Nose/Mouth/Throat: NL Teeth, Lips, Gums, Clear Oropharnyx, - - Dry mouth and secretions Neck: NL Appearance and Movements; NL JVP, Trachea Midline, No Thyroid Enlargement, Masses Respiratory: Symmetrical Chest Expansion and Respiratory Effort, - - Diminished in bases, crackles in middle and upper lobes. Cardiovascular: NL Sounds; No Murmurs; No JVD, RRR, - - 1+ edema in B/L LE. Improved from previous exam. Abdominal: NL Sounds; No Tenderness; No Distention, No Hepatosplenomegaly Lymphatic: No Cervical Adenopathy Extremities: No Clubbing, Cyanosis Skin: No Nodules or Sclerosis, - - Purpura on arms, right worse than left. Neurological: - - A/Ox1. Result Diagrams: 02/17/17 05:24 02/17/17 05:24 Additional Lab and Data: Lab Results Microbiology and Other Data: Microbiology 02/13/17 10:24 Urine Culture - Preliminary Urine Enterococcus Faecium 02/13/17 17:50 Nasal Screen MRSA (PCR)([facility]) - Final Nasal Mrsa Positive 02/13/17 11:40 Influenza Types A,B Antigen ([facility]) - Final Nasal Specimen received for Influenza A/B Molecular testing Assess/Plan/Problems-Billing Assessment: Patient is an 89yo female with a PMH significant for dementia, CHF, Afib, HTN, Chronic Respiratory failure, and previous UTI who presents with UTI and respiratory failure. Patient initially improved with fluid, but then deteriorated and had to go back on BiPAP with worsening pulmonary edema on CXR. - Patient Problems (1) Acute and chronic respiratory failure ([id number]) Current Visit: Yes Status: Acute Code(s): J96.20 - ACUTE AND CHR RESP FAILURE, UNSP W HYPOXIA OR HYPERCAPNIA SNOMED Code(s): 37585356 Comment: Chronic hypoxic and hypercarbic respiratory failure, worsened, on Nasal cannula at 6L all day, improved hypercarbia and hypoxia on ABG. Likely from CHF exacerbation and fluid overload. Aggressive Diuresis and continue BiPAP PRN. Appreciate Invoicing Machine Operator input. Patient's respiratory status likely due to tracheobronchomalacia likely requiring NPPV intermittently for the rest or patient's life. Discussed this possiblity with family and they were interested in Palliative care. (2) UTI (urinary tract infection) Current Visit: No Status: Acute Comment: Urine culture growing VRE susceptible to Linezolid, Tigecycline, and Synercid . Negative BC so far. Started on Linezolid. Possible cause of patient's mental status depression. If improves, continue linezolid. Appreciate ID input, possibly contaminate and if patient does not improve would consider discontinuing therapy. (3) Acute on chronic heart failure Current Visit: No Status: Acute Code(s): I50.9 - HEART FAILURE, UNSPECIFIED SNOMED Code(s): 324175481 Comment: HFpEF, EF 55-60 on previous echo. Positive 6L since hospitalized. Given 40mg lasix IV. On Bumex .5mg PO daily at home. Given 60mg IV lasix today with with moderate effect. Daily weights, gained 5 pounds since admission. Strict I/O with Emery. Remove emery when able due to UTI. (4) Atrial fibrillation Current Visit: No Status: Acute Code(s): I48.91 - UNSPECIFIED ATRIAL FIBRILLATION SNOMED Code(s): 23538729 Comment: Rate controlled, paced. Anticoagulated with Coumadin chronically, Coumadin held due to supratherapeutic INR. Increased to greater than 7, Vitamin K given due to purpuric rash on arms. Recheck pending, Will monitor. (5) Hypertension Current Visit: No Status: Acute Code(s): I10 - ESSENTIAL (PRIMARY) HYPERTENSION SNOMED Code(s): 83525674 Comment: Now normotensive, hypotensive at admission diuretics as above (6) Supratherapeutic INR Current Visit: No Status: Acute Code(s): R79.1 - ABNORMAL COAGULATION PROFILE SNOMED Code(s): 680135001 Comment: INR 7.75 up from 3.32 at admission. Purpuric rash on arms, not likely new. H/H stable. Coumadin held, will monitor. Reversed with 2.5mg Vitamin K. Recheck pending. (7) DVT prophylaxis Current Visit: No Status: Acute Code(s): VAD9999 - SNOMED Code(s): 131376686 Comment: Coumadin (8) DNR (do not resuscitate) Current Visit: No Status: Acute Comment: Signed MOLST, Family interested in palliative care. Status and Disposition: Patient is admitted to ICU for possible need for BiPAP, hopeful transfer to floor tomorrow.
[2017-02-17] MEDS ORDERED: Furosemide IV* 10 MG/ML 2 ML VIAL (20 MG) IV SLOW PU ONE (21:07)
[2017-02-17 21:09] LABS: INR 5.97 (0.77-1.02)
[2017-02-18] MEDS: Levothyroxine TAB* 137 MCG TAB PO SCH (05:59)
[2017-02-18 06:51] LABS: ABS Basophils 0 10^3/ul (0-0.2); ABS Eosinophils 0.2 10^3/ul (0-0.6); ABS Monocytes 1.1 10^3/ul (0-0.8); ABS Nucleated RBC 0 10^3/ul; Eosinophil % 2.6 % (0-6); Hematocrit 40 % (35-47); Hemoglobin 13.3 g/dl (12.0-16.0); Mean Corpuscular HGB Conc 33 g/dl (31-36); Mean Corpuscular Hemoglobin 32 pg (27-31); Mean Corpuscular Volume 98 fL (80-97); Mean Platelet Volume 10 um3 (7.4-10.4); Nucleated Red Blood Cells % 0.1; Platelet Count 113 10^3/ul (150-450); Red Blood Count 4.13 10^6/ul (4.0-5.4); Red Cell Distribution Width 16 % (10.5-15); White Blood Count 6.3 10^3/ul (3.5-10.8)
[2017-02-18 06:57] LABS: INR 4.64 (0.77-1.02)
--- NOTE | 2017-02-18 08:12 | RAD ---
INDICATION: Pulmonary edema. COMPARISON: Comparison is made with a prior chest x-ray study from February 15, 2017. TECHNIQUE: A portable view of the chest was obtained. FINDINGS: The patient is status post sternotomy and aortic valve replacement surgery. The heart is mildly enlarged and unchanged from the prior exam. There is diffuse prominence of the interstitial markings and small bilateral pleural effusions which appears unchanged. IMPRESSION: FINDINGS CONSISTENT WITH CONGESTIVE HEART FAILURE, UNCHANGED.
[2017-02-18 08:37] LABS: EGFR Non-African American 59.7 (>60)
[2017-02-18] MEDS: Spironolactone TAB* 25 MG PO SCH (08:56)
[2017-02-18] MEDS: Atenolol TAB* 25 MG PO SCH (08:56)
[2017-02-18] MEDS: Potassium Chloride LIQUID* 20 MEQ PACKET PO SCH (08:56)
[2017-02-18] MEDS: Linezolid 600 MG IVPREMIX(*) 600 MG/300 ML BAG IVPB SCH (12:21)
[2017-02-18] MEDS ORDERED: Acetaminophen TAB* 325 MG PO PRN (13:00)
[2017-02-18] MEDS ORDERED: Haloperidol TAB* 0.5 MG PO PRN (13:00)
[2017-02-18] MEDS ORDERED: Ondansetron ODT TAB* 4 MG SL PRN (13:00)
--- NOTE | 2017-02-18 13:34 | PN ---
Progress Note - Progress Note Date of Service: 02/18/17 Note: CRITICAL CARE MEDICINE Date: 02/18/2017 Time: 1300 SUBJECTIVE: Patient seen and examined. PHYSICAL EXAM: Vital Signs: Reviewed. Neurologic: awakens some but not verbally communicating. HEENT: Sclera anicteric. Trachea midline. Head falls to right and movement with breathing and doesn't hold up well Cardiovascular: distant reg, S1 S2 Respiratory: dec adn bl rhonchi; paradoxical pattern. Abdomen: Soft, obese, nt. Kyphoscoliosis Extremities: Warm. LABS: Reviewed. IMAGING: Reviewed. MEDICATIONS: Reviewed. 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 Pt is failing therapy and showing dependence on bipap without ability to thrive. Large component of TBM likely here with aspiration and R worse then L heart failure, unable to overcome despite bipap nocturnal and rescue attempts and diuretics. Remains with failing process. Explained potential of continued same regimen, but without much success, and given risk benefit , would rather dc bipap and non-essential tx and focus on comfort alone. Goal is [facility] with [facility]. Hopefully this can be accomplished Monday with palliative support. Can transfer to floor with comfort regimen and mimic support at SNF; leave on 6L O2 with no increased titration. See how she can equilibrate and ensure comfort. Daughter and son in law were very appreciative. Disposition: floor Code Status: comfort- goal towards hospice Critical Care Time: 30min FOz Altamirano DO
[2017-02-18] MEDS: Scopolamine 1.5 mg* PATCH TRANSDERM SCH (14:46)
[2017-02-18] MEDS: Morphine ORAL CONCENTRATE* 5 MG/0.25 ML ORAL.SYRIN PO PRN ×2 (18:22→22:39)
[2017-02-18] MEDS: Morphine INJ* 2 MG/ML 1 ML SYRINGE (TWO MG - NEW SYRINGE VERSION) IV PRN (20:15)
[2017-02-19] MEDS: Linezolid 600 MG IVPREMIX(*) 600 MG/300 ML BAG IVPB SCH ×2 (00:37→11:46)
[2017-02-19] MEDS: Morphine INJ* 2 MG/ML 1 ML SYRINGE (TWO MG - NEW SYRINGE VERSION) IV PRN (00:45)
[2017-02-19] MEDS: Morphine ORAL CONCENTRATE* 5 MG/0.25 ML ORAL.SYRIN PO PRN ×2 (01:56→05:56)
--- NOTE | 2017-02-19 16:18 | PN ---
Subjective Date of Service: 02/19/17 Interval History: Pt in not responding to verbal stymuli Family History: Unchanged from Admission Social History: Unchanged from Admission Past Medical History: Unchanged from Admission Objective Active Medications: Acetaminophen (Tylenol Tab*) 650 mg PO Q4H PRN PRN Reason: FEVER Haloperidol (Haldol Tab*) 0.5 mg PO Q2H PRN PRN Reason: AGITATION Lorazepam (Ativan Inj*) 1 mg IV PUSH Q6H PRN PRN Reason: ANXIETY Last Admin: 02/17/17 03:01 Dose: 1 mg Morphine Sulfate (Morphine Inj (Syringe)*) 2 mg IV Q1H PRN PRN Reason: Pain or Shortness of Breath Last Admin: 02/19/17 00:45 Dose: 2 mg Morphine Sulfate (Morphine Oral Concentrate*) 5 mg PO Q2H PRN PRN Reason: Pain or Dyspnea Last Admin: 02/19/17 05:56 Dose: 5 mg Ondansetron HCl (Zofran Odt Tab*) 4 mg SL Q8H PRN PRN Reason: NAUSEA/VOMITING Pharmacy Profile Note (Scopolamine Patch Remove*) 1 note PATCH OFF .AFTER 72 HOURS ARNAUD Scopolamine (Transderm-Scop 1.5 Mg Patch*) 1 patch TRANSDERM Q72H [facility] Last Admin: 02/18/17 14:46 Dose: 1 patch Vital Signs - 8 hr 02/19/17 11:46 Respiratory 16 Rate Oxygen Devices in Use Now: Nasal Cannula Appearance: 89 yo F lying unresponsive in bed Eyes: No Scleral Icterus, PERRLA Ears/Nose/Mouth/Throat: - - dry mucosa Respiratory: Symmetrical Chest Expansion and Respiratory Effort, - - cralkles at b/l lower lungs Cardiovascular: RRR, - - 2/ 6 RITO Abdominal: NL Sounds; No Tenderness; No Distention, No Hepatosplenomegaly Lymphatic: No Cervical Adenopathy Extremities: No Clubbing, Cyanosis, - - trace pedal edema b/l Skin: No Nodules or Sclerosis, - - venous staisis changes b/l LEs Neurological: - - deferred, pt is comfort care Result Diagrams: 02/18/17 06:45 02/18/17 06:45 Additional Lab and Data: Lab Results Microbiology and Other Data: Microbiology 02/13/17 10:24 Urine Culture - Preliminary Urine Enterococcus Faecium 02/13/17 17:50 Nasal Screen MRSA (PCR)([facility]) - Final Nasal Mrsa Positive 02/13/17 11:40 Influenza Types A,B Antigen ([facility]) - Final Nasal Specimen received for Influenza A/B Molecular testing Assess/Plan/Problems-Billing Assessment: Patient is an 89yo female with a PMH significant for dementia, CHF, Afib, HTN, Chronic Respiratory failure, and previous UTI who presents with UTI and respiratory failure. Patient initially improved with fluid, but then deteriorated and had to go back on BiPAP with worsening pulmonary edema on CXR. - Patient Problems (1) Acute and chronic respiratory failure ([id number]) Comment: Chronic hypoxic and hypercarbic respiratory failure, likely from CHF exacerbation , fluid overload and aspiration pneumonia. Appreciate Exhauster input. Patient's respiratory status likely due to tracheobronchomalacia likely requiring NPPV intermittently for the rest or patient's life. Comfort measures cont, Palliative care consult pending. (2) Atrial fibrillation Comment: Rate controlled, paced. Anticoagulated with Coumadin chronically, Coumadin held due to comfort measures (3) UTI (urinary tract infection) Comment: Urine culture growing VRE, antibiotics stopped due to comfort care (4) DVT prophylaxis Comment: n/a, comfort care Status and Disposition: inpatient, comfort care
[2017-02-20] MEDS: Morphine INJ* 2 MG/ML 1 ML SYRINGE (TWO MG - NEW SYRINGE VERSION) IV PRN ×3 (08:33→21:52)
--- NOTE | 2017-02-20 11:48 | PN ---
Subjective Date of Service: 02/20/17 Interval History: Pt opens eyes when I call her name but does not otherwise respond. Family History: Unchanged from Admission Social History: Unchanged from Admission Past Medical History: Unchanged from Admission Objective Active Medications: Acetaminophen (Tylenol Tab*) 650 mg PO Q4H PRN PRN Reason: FEVER Haloperidol (Haldol Tab*) 0.5 mg PO Q2H PRN PRN Reason: AGITATION Lorazepam (Ativan Inj*) 1 mg IV PUSH Q6H PRN PRN Reason: ANXIETY Last Admin: 02/17/17 03:01 Dose: 1 mg Morphine Sulfate (Morphine Inj (Syringe)*) 2 mg IV Q1H PRN PRN Reason: Pain or Shortness of Breath Last Admin: 02/20/17 08:33 Dose: 2 mg Morphine Sulfate (Morphine Oral Concentrate*) 5 mg PO Q2H PRN PRN Reason: Pain or Dyspnea Last Admin: 02/19/17 05:56 Dose: 5 mg Ondansetron HCl (Zofran Odt Tab*) 4 mg SL Q8H PRN PRN Reason: NAUSEA/VOMITING Pharmacy Profile Note (Scopolamine Patch Remove*) 1 note PATCH OFF .AFTER 72 HOURS ARNAUD Scopolamine (Transderm-Scop 1.5 Mg Patch*) 1 patch TRANSDERM Q72H [facility] Last Admin: 02/18/17 14:46 Dose: 1 patch Vital Signs - 8 hr 02/20/17 02/20/17 02/20/17 03:48 04:04 08:33 Pulse Rate 91 Respiratory 17 24 Rate O2 Sat by Pulse 98 100 Oximetry Oxygen Devices in Use Now: Nasal Cannula Appearance: Elderly female sitting up in bed, sleeping, opens eyes when I call her name otherwise she does not respond, NAD Eyes: No Scleral Icterus Ears/Nose/Mouth/Throat: Mucous Membranes Moist Respiratory: Symmetrical Chest Expansion and Respiratory Effort, Clear to Auscultation - anteriorly, - - tachypnic Cardiovascular: NL Sounds; No Murmurs; No JVD, RRR, No Edema Abdominal: NL Sounds; No Tenderness; No Distention Extremities: No Clubbing, Cyanosis Skin: No Nodules or Sclerosis, - - cyanotic fingers Neurological: - - minimally responsive Result Diagrams: 02/18/17 06:45 02/18/17 06:45 Additional Lab and Data: Lab Results Microbiology and Other Data: Microbiology 02/13/17 10:24 Urine Culture - Preliminary Urine Enterococcus Faecium 02/13/17 17:50 Nasal Screen MRSA (PCR)([facility]) - Final Nasal Mrsa Positive 02/13/17 11:40 Influenza Types A,B Antigen ([facility]) - Final Nasal Specimen received for Influenza A/B Molecular testing Assess/Plan/Problems-Billing Ms Olivares is an 89yo female with a PMHx significant for dementia, CHF, Afib, HTN , Chronic Respiratory failure, and previous UTI who presents with UTI and respiratory failure. Patient initially improved with fluid, but then deteriorated and had to go back on BiPAP with worsening pulmonary edema on CXR. It is now felt the patient decompensation is likely secondary to tracheobronchomalacia, aspiration pneumonia and R>L heart failure. The patients family has opted for comfort care. Continue supportive care including prn morphine. Status and Disposition: inpatient, comfort care
[2017-02-20] MEDS: Morphine ORAL CONCENTRATE* 5 MG/0.25 ML ORAL.SYRIN PO PRN ×3 (12:22→21:48)
[2017-02-21] MEDS: Morphine ORAL CONCENTRATE* 5 MG/0.25 ML ORAL.SYRIN PO PRN ×6 (00:05→13:25)
[2017-02-21] MEDS: LORazepam INJ* 2 MG/ML 1 ML VIAL IV PUSH PRN (00:14)
[2017-02-21 07:31] VITALS: BP 91/44
[2017-02-21] MEDS: Scopolamine 1.5 mg* PATCH TRANSDERM SCH (11:31)
[2017-02-21] MEDS ORDERED: Scopolamine PATCH Remove* 1 NOTE MISC PATCH OFF SCH (13:01)
--- NOTE | 2017-02-21 13:34 | CONSULT ---
Palliative / Hospice Consult Ordering Provider: Basil Tubbs - Subjective Code Status: DNR Advance Directives Location: In Chart MOLST Part A Completed: Yes - DNR MOLST Part E Completed:: Yes - DNI (bipap OK), no feeding tube - History or Present Illness History or Present Illness: This 89 year old woman with dementia living in the enhanced assisted living section at [facility] was admitted 02/13/17 for AMS and combattiveness, found to have CO2 retention with pCO2 72, and serum CO2 42, as well as a UTI and CHF exacerbation with pulmonary vascular congestion, interstitial edema, and pleural effusion. The patient has a history of severe pulmonary hypertension, AF , chronic hypoxic and hypercarbic respiratory failure, and hypothyroidism. She has been DNR/DNI since 2012, but current (02/13/17) MOL[facility] form specifies noninvasive ventilation OK. She is O2 dependent at 2 LPM. The patient has been nonresponsive for a few days, has taken nothing p.o. for the last 2 days and prior to that was taking minimal amounts. She has been made comfort care. Current plan is to return her to her room at [facility] for end-of-life care. Daughter and HCP Petra Morrell wonders about her prognosis. Lab Values: Laboratory Last Values WBC 6.3 10^3/ul (3.5-10.8) 02/18/17 06:45 RBC 4.13 10^6/ul (4.0-5.4) 02/18/17 06:45 Hgb 13.3 g/dl (12.0-16.0) 02/18/17 06:45 Hct 40 % (35-47) 02/18/17 06:45 MCV 98 fL (80-97) H 02/18/17 06:45 MCH 32 pg (27-31) H 02/18/17 06:45 MCHC 33 g/dl (31-36) 02/18/17 06:45 RDW 16 % (10.5-15) H 02/18/17 06:45 Plt Count 113 10^3/ul (150-450) L 02/18/17 06:45 MPV 10 um3 (7.4-10.4) 02/18/17 06:45 Neut % (Auto) 63.5 % (38-83) 02/18/17 06:45 Lymph % (Auto) 16.0 % (25-47) L 02/18/17 06:45 [place] % (Auto) 17.3 % (1-9) H 02/18/17 06:45 Eos % (Auto) 2.6 % (0-6) 02/18/17 06:45 Baso % (Auto) 0.6 % (0-2) 02/18/17 06:45 Absolute Neuts (auto) 4.0 10^3/ul (1.5-7.7) 02/18/17 06:45 Absolute Lymphs (auto) 1.0 10^3/ul (1.0-4.8) 02/18/17 06:45 Absolute Monos (auto) 1.1 10^3/ul (0-0.8) H 02/18/17 06:45 Absolute Eos (auto) 0.2 10^3/ul (0-0.6) 02/18/17 06:45 Absolute Basos (auto) 0 10^3/ul (0-0.2) 02/18/17 06:45 Absolute Nucleated RBC 0 10^3/ul 02/18/17 06:45 Nucleated RBC % 0.1 02/18/17 06:45 INR (Anticoag Therapy) 4.64 (0.77-1.02) H 02/18/17 06:45 Patient Temperature Not Reportable 02/15/17 15:20 ABG pH 7.37 (7.35-7.45) 02/15/17 15:20 ABG pH (Temp Correct) Not Reportable 02/15/17 15:20 ABG pCO2 61 mmHg (35-45) H 02/15/17 15:20 ABG pCO2 (Temp Corrct Not Reportable 02/15/17 15:20 ABG pO2 138 mmHg (80-100) H 02/15/17 15:20 ABG pO2 (Temp Correct Not Reportable 02/15/17 15:20 ABG HCO3 31.2 mmol/L (19-31) H 02/15/17 15:20 ABG O2 Saturation 99.2 % (95-98) H 02/15/17 15:20 ABG Base Excess 8.0 (-2.0-2.0) H 02/15/17 15:20 Respiration Rate 14 02/15/17 15:20 O2 Delivery Device Bipap 02/15/17 15:20 Ventilator Type Not Reportable 02/15/17 15:20 Vent Mode S/t 02/15/17 15:20 FiO2 50 02/15/17 15:20 Inspiratory Time 1.0 02/15/17 15:20 PEEP Not Reportable 02/15/17 15:20 Pressure Support Not Reportable 02/15/17 15:20 Pressure Control Not Reportable 02/15/17 15:20 EPAP 6 02/15/17 15:20 IPAP 14 02/15/17 15:20 BiPAP Not Reportable 02/15/17 15:20 Sodium 138 mmol/L (133-145) 02/18/17 06:45 Potassium 4.0 mmol/L (3.5-5.0) 02/18/17 06:45 Chloride 95 mmol/L (101-111) L 02/18/17 06:45 Carbon Dioxide 39 mmol/L (22-32) H 02/18/17 06:45 Anion Gap 4 mmol/L (2-11) 02/18/17 06:45 BUN 20 mg/dL (6-24) 02/18/17 06:45 Creatinine 0.89 mg/dL (0.51-0.95) 02/18/17 06:45 Est GFR ( Amer) 76.8 (>60) 02/18/17 06:45 Est GFR (Non-Af Amer) 59.7 (>60) 02/18/17 06:45 BUN/Creatinine Ratio 22.5 (8-20) H 02/18/17 06:45 Glucose 84 mg/dL (70-100) 02/18/17 06:45 Lactic Acid 1.1 mmol/L (0.5-2.0) 02/13/17 07:54 Calcium 9.3 mg/dL (8.6-10.3) 02/18/17 06:45 Magnesium 1.9 mg/dL (1.9-2.7) 02/17/17 05:24 Total Bilirubin 2.00 mg/dL (0.2-1.0) H 02/15/17 05:30 AST 32 U/L (13-39) 02/15/17 05:30 ALT 10 U/L (7-52) 02/15/17 05:30 Alkaline Phosphatase 92 U/L (34-104) 02/15/17 05:30 C-Reactive Protein 14.95 mg/L (< 5.00) H 02/13/17 06:52 Total Protein 6.5 g/dL (6.4-8.9) 02/15/17 05:30 Albumin 2.9 g/dL (3.2-5.2) L 02/15/17 05:30 Globulin 3.6 g/dL (2-4) 02/15/17 05:30 Albumin/Globulin Ratio 0.8 (1-3) L 02/15/17 05:30 Amylase 13 U/L (29-103) L 02/13/17 06:52 Lipase 15 U/L (11.0-82.0) 02/13/17 06:52 TSH 3.85 mcIU/mL (0.34-5.60) 02/15/17 05:30 Urine Color Jessica 02/13/17 08:55 Urine Appearance Cloudy 02/13/17 08:55 Urine pH 5.0 (5-9) 02/13/17 08:55 Ur Specific [place] 1.023 (1.010-1.030) 02/13/17 08:55 Urine Protein 2+(100 mg/dl) (Negative) H 02/13/17 08:55 Urine Ketones Negative (Negative) 02/13/17 08:55 Urine Blood 1+ (Negative) H 02/13/17 08:55 Urine Nitrate Negative (Negative) 02/13/17 08:55 Urine Bilirubin Negative (Negative) 02/13/17 08:55 Urine Urobilinogen Negative (Negative) 02/13/17 08:55 Ur Leukocyte Esterase 3+ (Negative) H 02/13/17 08:55 Urine WBC (Auto) 3+(>20/hpf) (Absent) H 02/13/17 08:55 Urine RBC (Auto) 3+(>10/hpf) (Absent) H 02/13/17 08:55 Ur Squamous Epith Cells Present (Absent) H 02/13/17 08:55 Urine Bacteria 2+ (Absent) H 02/13/17 08:55 Urine Glucose Negative (Negative) 02/13/17 08:55 Urine Ascorbic Acid * (Negative) H 02/13/17 08:55 Influenza A (Rapid) Negative (Negative) 02/13/17 11:55 Influenza B (Rapid) Negative (Negative) 02/13/17 11:55 - Objective Active Medications: Haloperidol (Haldol Tab*) 0.5 mg PO Q2H PRN PRN Reason: AGITATION Lorazepam (Ativan Inj*) 1 mg IV PUSH Q6H PRN PRN Reason: ANXIETY Last Admin: 02/21/17 00:14 Dose: 1 mg Morphine Sulfate (Morphine Inj (Syringe)*) 2 mg IV Q1H PRN PRN Reason: Pain or Shortness of Breath Last Admin: 02/20/17 21:52 Dose: 2 mg Morphine Sulfate (Morphine Oral Concentrate*) 5 mg PO Q2H PRN PRN Reason: Pain or Dyspnea Last Admin: 02/21/17 11:30 Dose: 5 mg Ondansetron HCl (Zofran Odt Tab*) 4 mg SL Q8H PRN PRN Reason: NAUSEA/VOMITING Pharmacy Profile Note (Scopolamine Patch Remove*) 1 note PATCH OFF .AFTER 72 HOURS ARNAUD Scopolamine (Transderm-Scop 1.5 Mg Patch*) 1 patch TRANSDERM Q72H ARNAUD Last Admin: 02/21/17 11:31 Dose: 1 patch Vital Signs: Vital Signs: Temp Pulse Resp BP Pulse Ox 100.0 F 124 24 91/44 93 02/21/17 07:18 02/21/17 07:18 02/21/17 11:30 02/21/17 07:18 02/21/17 09:27 Patient Weight: Weight 242 lb 8.136 oz Intake and Output: Intake & Output 02/19/17 02/20/17 02/21/17 02/22/17 06:59 06:59 06:59 06:59 Intake Total 749 315 0 Output Total 400 150 375 Balance 349 165 -375 Intake: IV Fluids 339 310 ABX - LINEZOLID 339 300 NS (0.9%) 10 IVPB 300 0 0 ABX - LINEZOLID 300 0 NS (0.9%) 0 Oral 110 5 0 Output: Miranda 400 150 375 Other: Estimated Void Small # Bowel Movements 0 ADLs: Meal Record Start: 02/13/17 12: 54 Freq: ,,18 Status: Complete Protocol: Document 02/13/17 18:00 [id number] (Rec: 02/13/17 18:02 [id number] ICU-C25) Document 02/14/17 13:00 [id number] (Rec: 02/14/17 13:46 [id number] ICU-C12) ADLs: Meal Record Start: 02/14/17 16: 05 Freq: DAILY@0900,1400,1800 Status: Active Protocol: Created 02/14/17 16:05 [id number] (Rec: 02/14/17 16:05 [id number] ICU-C12) Document 02/15/17 09:00 [id number] (Rec: 02/15/17 10:47 [id number] ICU-C11) Document 02/15/17 14:00 [id number] (Rec: 02/15/17 15:54 [id number] ICU-C06) Document 02/16/17 09:00 [id number] (Rec: 02/16/17 09:42 [id number] ICU-C11) Document 02/16/17 14:00 [id number] (Rec: 02/16/17 14:08 [id number] ICU-C16) Document 02/16/17 18:34 [id number] (Rec: 02/16/17 18:34 [id number] ICU-C16) Document 02/17/17 09:00 [id number] (Rec: 02/17/17 10:50 [id number] ICU-C15) Document 02/17/17 14:19 [id number] (Rec: 02/17/17 14:19 [id number] ICU-C15) Document 02/17/17 19:12 [id number] (Rec: 02/17/17 19:12 [id number] ICU-C15) Document 02/18/17 13:03 [id number] (Rec: 02/18/17 13:04 [id number] ICU-M05) Document 02/18/17 14:00 [id number] (Rec: 02/18/17 17:10 OXQ1368 ICU-C15) Document 02/18/17 18:00 [id number] (Rec: 02/18/17 22:05 [id number] MED-C11) Document 02/19/17 09:00 YQS5456 (Rec: 02/19/17 09:34 [id number] MED-C02) Document 02/19/17 13:59 [id number] (Rec: 02/19/17 14:00 QEM1981 MED-C02) Document 02/19/17 18:00 EHU5267 (Rec: 02/19/17 20:13 [id number] MEDL-C01) Document 02/20/17 09:00 COH8136 (Rec: 02/20/17 10:03 KWB4659 MED-C09) Document 02/20/17 14:00 OCV5936 (Rec: 02/20/17 14:00 [id number] MED-C09) Document 02/20/17 18:00 [id number] (Rec: 02/20/17 20:07 [id number] MED-C09) Document 02/21/17 09:00 [id number] (Rec: 02/21/17 10:28 [id number] MED-C09) ADLs: Meal Record Start: 02/15/17 18: 27 Freq: 09,13,18 Status: Complete Protocol: Created 02/15/17 18:28 [id number] (Rec: 02/15/17 18:28 RAF0790 ICU-C12) Intake and Output Start: 02/13/17 12: 54 Freq: 06,14,22 Status: Complete Protocol: Document 02/13/17 14:00 [id number] (Rec: 02/13/17 15:17 [id number] ICU-C25) Document 02/13/17 22:00 PCW4715 (Rec: 02/13/17 22:40 [id number] ICU-C10) Document 02/14/17 06:00 HJU1332 (Rec: 02/14/17 06:27 [id number] ICU-M21) Document 02/14/17 14:46 [id number] (Rec: 02/14/17 14:50 [id number] ICU-M21) Intake and Output Start: 02/14/17 16: 05 Freq: DAILY@0600,1400,2200 Status: Inactive Protocol: Created 02/14/17 16:05 [id number] (Rec: 02/14/17 16:05 [id number] ICU-C12) Document 02/14/17 21:38 [id number] (Rec: 02/14/17 21:38 [id number] ICU-C11) Document 02/15/17 14:00 [id number] (Rec: 02/15/17 15:54 [id number] ICU-C06) Document 02/16/17 05:47 [id number] (Rec: 02/16/17 05:47 [id number] ICU-M21) Document 02/16/17 05:52 [id number] (Rec: 02/16/17 05:52 [id number] ICU-C20) Document 02/16/17 14:18 OVI0100 (Rec: 02/16/17 14:19 RSC4507 ICU-M21) Document 02/16/17 21:51 [id number] (Rec: 02/16/17 21:51 [id number] ICU-C20) Document 02/17/17 06:00 EZL3216 (Rec: 02/17/17 06:32 [id number] ICU-C15) Document 02/17/17 13:30 EMD1402 (Rec: 02/17/17 13:32 [id number] ICU-M21) Document 02/18/17 06:00 [id number] (Rec: 02/18/17 06:20 [id number] ICU-C15) Document 02/18/17 22:00 [id number] (Rec: 02/18/17 22:07 [id number] MED-C11) Document 02/19/17 01:49 [id number] (Rec: 02/19/17 01:49 [id number] MEDL-C01) Document 02/19/17 05:50 [id number] (Rec: 02/19/17 05:50 [id number] MEDL-C01) Intake and Output Start: 02/15/17 18: 27 Freq: 06,14,22 Status: Complete Protocol: Created 02/15/17 18:28 [id number] (Rec: 02/15/17 18:28 [id number] ICU-C12) General Impression: Unresponsive, obtunded obese woman lying in bed with RR 24, NAD. Head: Symmetrical Eyes: No Scleral Icterus Ears/Nose/Mouth/Throat: Mucous Membranes Moist Neck: NL Appearance and Movements; NL JVP, Trachea Midline, No Thyroid Enlargement, Masses Cardiovascular: NL Sounds; No Murmurs; No JVD, RRR, No Edema Respiratory: Symmetrical Chest Expansion and Respiratory Effort, - - Breath sounds rhonchorous, mostly upper airway secretions Abdominal: NL Sounds; No Tenderness; No Distention Extremities: No Clubbing, Cyanosis Neurological: - - Unresponsive - Assessment Assessment: This woman with dementia and advanced COPD with hypercarbic hypoxic respiratory failure has deteriorated with worsening R>L CHF and tracheobronchomalacia complicated by possible aspiration pneumonia. The patient did not have a swallow evaluation, but it is likely that she aspirates because of her advanced dementia, and at this point even if she improves from the current acute insult, she is likely to live less than six months. If she remains in her current state of unresponsiveness, taking nothing p.o., she will not survive more than a week. This is the most likely scnario, and she is appropriate for home hospice services on the basis of her respiratory failure and congestive heart failure. The plan is for her to return to [facility] in 2 days with same-day hospice sign on. I have tried to reach the patient's daughter, Petra Morrell, and left a message for her to call me when she hears the voice mail. Thanks for the consult. - Plan Consult Plan (MU): Hospice - Time On Unit Date of Evaluation: 02/21/17 Hospice Consult Time in: 13:15 Hospice Consult Time Out: 13:45 Hospice Consult Time Total: 30
== END 2017-02-21 14:35 | disposition expired | DRG 189 ==
LOC: ED 06:27 → ICU 08:57 → MED 02-18 16:41 → UNDODISIN 02-21 14:35
PROVIDERS: ADMIT Hospitalist; ATTEND Hospitalist
PROC: 5A09457 Assistance with Respiratory Ventilation, 24-96 Consecutive Hours, Continuous Positive Airway Pressure (ICD-10-PCS; principal; 2017-02-13)
DX: J96.22 Acute and chronic respiratory failure with hypercapnia (principal); J69.0 Pneumonitis due to inhalation of food and vomit; I50.23 Acute on chronic systolic (congestive) heart failure; G93.1 Anoxic brain damage, not elsewhere classified; N39.0 Urinary tract infection, site not specified; Q32.2 Congenital bronchomalacia; I48.91 Unspecified atrial fibrillation; J96.21 Acute and chronic respiratory failure with hypoxia; B95.2 Enterococcus as the cause of diseases classified elsewhere; E03.9 Hypothyroidism, unspecified; Z66 Do not resuscitate; R79.1 Abnormal coagulation profile; F03.90 Unspecified dementia, unspecified severity, without behavioral disturbance, psychotic disturbance, mood disturbance, and anxiety; J44.9 Chronic obstructive pulmonary disease, unspecified; F41.8 Other specified anxiety disorders; I27.20 Pulmonary hypertension, unspecified; Z79.01 Long term (current) use of anticoagulants; Z99.81 Dependence on supplemental oxygen; Z95.0 Presence of cardiac pacemaker
CPT/HCPCS: 36415; 36600; 71010; 71045; 80048; 80053; 81003; 81015; 82150; 82803; 83605; 83690; 83735; 84443; 85025; 85027; 85610; 86140; 87040; 87077; 87086; 87186; 87502; 87641; 93005; 94640; 94660; 94760; A9270-GY; J0696; J1940; J2020; J2060; J2270; J3475